=== PATIENT | female | born 1955 | race Caucasian/White ===

== ENCOUNTER → 2020-09-18 | Outpatient (CLI) | payer MEDICARE ==
--- NOTE | 2020-09-18 16:00 | BD ---
EXAMINATION TYPE: Axial Bone Density DATE OF EXAM: 09/18/2020 COMPARISON: NONE CLINICAL HISTORY: Disorder of bone. Postmenopausal female. Height: 62.5 IN Weight: 189 LBS FRAX RISK QUESTIONS: History of Fracture in Adulthood: YES RT HIP/FEMUR AGE 62 Current Tobacco Use: YES RISK FACTORS HISTORY OF: Hip Fracture (Right): AGE 62 Surgery to Spine/Hip(right): SPINE SURGERY AGE 54; RT HIP SURGERY AGE 62 Active: YES Postmenopausal woman: AGE 60 MEDICATIONS: Additional Medications: CALCIUM, VIT D, FIBROMYALGIA MEDS, RESTLESS LEG SYNDROME MEDS, PEPCID, KEPRA, ELIQUIS, EXAM MEASUREMENTS: Bone mineral densitometry was performed using the UserTesting System. L-SPINE SURGERY Bone mineral density about the L hip (g/cm2): 0.732 T Score values are as follows: -----L Neck: -2.2 -----L Total: -2.0 Bone mineral density BASELINE Bone mineral density about the L Wrist (g/cm2): 0.378 T Score values are as follows: -----Dist. R+U: -3.9 -----Prox. R+U: -3.1 -----Radius total: -4.9 Bone mineral density BASELINE IMPRESSION: Osteoporosis (T Score less than -2.5). There is increased fracture risk and therapy is usually indicated based on age. Re-Screen 1-2 years. NOTE: T-SCORE=SD OF THE YOUNG ADULT MEAN.
--- NOTE | 2020-10-02 10:17 | MM ---
Reason for exam: screening (asymptomatic). Last mammogram was performed 1 year and 6 months ago. History: Patient is postmenopausal. Benign excisional biopsy of the left breast. Physical Findings: A clinical breast exam by your physician is recommended on an annual basis and results should be correlated with mammographic findings. MG Screening Mammo w CAD Bilateral CC, MLO, and XCCL view(s) were taken. Prior study comparison: April 02, 2019, mammogram, performed at [facility]. There are scattered fibroglandular densities. Stable benign calcifications. There is no discrete abnormality. No significant changes when compared with prior studies. ASSESSMENT: Benign, BI-RAD 2 RECOMMENDATION: Routine screening mammogram of both breasts in 1 year.
== END | disposition home or self-care (01) ==
LOC: RADMAMWWP 14:40
PROVIDERS: ATTEND Family Medicine
DX: Z12.31 Encounter for screening mammogram for malignant neoplasm of breast (principal); M81.0 Age-related osteoporosis without current pathological fracture
CPT/HCPCS: 77067; 77080

== ENCOUNTER → 2021-11-07 | Outpatient (CLI) | payer MEDICARE ==
--- NOTE | 2021-11-07 16:05 | MR ---
EXAMINATION TYPE: MR brain wo/w con DATE OF EXAM: 11/07/2021 COMPARISON: NONE HISTORY: 66-year-old female G43.009, Brain aneurysm, migraine TECHNIQUE: Multiplanar, multisequence images of the brain and brainstem were acquired before and aft er administration of 10 mL IV Gadavist. Diffusion weighted imaging is performed. FINDINGS: No evidence for acute infarction, hemorrhage, mass, mass effect, midline shift, herniation, effacemen t of basal cisterns, or extra-axial fluid collection. The ventricles and sulci are age-appropriate. Incidental hypoplastic A1 segment right anterior cerebral artery. There is also a dominant left verte bral artery. Somewhat diminutive caliber to the basilar artery. Correlate for any chronic symptoms of vertebrobasilar insufficiency. There appears to be persistent origin right posterior cerebral artery. Otherwise, major intracranial flow voids are intact. T2/FLAIR weighted sequences show mild to moderate scattered subcortical and deep white matter foci of bright signal change in both cerebral hemispheres, numbering approximately 20-25 on the right and 10 on the left. Midline structures demonstrates a partially up the sella but otherwise normal morphology. The cranio cervical junction is normal. Post contrast images demonstrate no evidence of pathologic enhancement. Dural venous sinuses are pat ent. The visualized sinuses are clear and the globes are intact. There is fluid throughout the bilateral m astoid air cells. IMPRESSION: 1. [id number] scattered burden of T2 bright white matter change, right greater than left. This could reflect chronic small vessel ischemic disease or areas of ischemic demyelination related to chr onic migraines. 2. No acute intracranial abnormality seen. No enhancing lesions. 3. Anatomic variation with a dominant left vertebral artery. Also, persistent origin right post erior cerebral artery. Somewhat small caliber to the basilar artery. 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 4. Prominent fluid within the bilateral mastoid air cells. Correlate for any mastoid pain to exclude mastoiditis. 5. Consider MR angiography [place] of [place] to better exclude intracranial aneurysm.
== END | disposition home or self-care (01) ==
LOC: RADMRIMAIN 10:58
PROVIDERS: ATTEND Family Medicine
DX: G43.909 Migraine, unspecified, not intractable, without status migrainosus (principal)
CPT/HCPCS: 70553; A9585

== ENCOUNTER → 2021-11-20 | Outpatient (CLI) | payer MEDICARE ==
--- NOTE | 2021-11-22 09:50 | MM ---
Reason for exam: screening (asymptomatic). Last mammogram was performed 1 year and 2 months ago. History: Patient is postmenopausal. Benign excisional biopsy of the left breast. Physical Findings: A clinical breast exam by your physician is recommended on an annual basis and results should be correlated with mammographic findings. MG Screening Mammo w CAD Bilateral CC and MLO view(s) were taken. Prior study comparison: September 18, 2020, bilateral MG screening mammo w CAD. April 02, 2019, mammogram, performed at [facility]. There are scattered fibroglandular densities. No significant changes when compared with prior studies. ASSESSMENT: Negative, BI-RAD 1 RECOMMENDATION: Routine screening mammogram of both breasts in 1 year.
== END | disposition home or self-care (01) ==
LOC: RADMAMWWP 13:06
PROVIDERS: ATTEND Family Medicine
DX: Z12.31 Encounter for screening mammogram for malignant neoplasm of breast (principal); Z78.0 Asymptomatic menopausal state
CPT/HCPCS: 77067

== ENCOUNTER → 2022-01-02 | Outpatient (CLI) | payer MEDICARE ==
--- NOTE | 2022-01-02 16:28 | MR ---
EXAMINATION TYPE: MR angio head wo con DATE OF EXAM: 01/02/2022 COMPARISON: MRI brain November 07, 2021 HISTORY: Headaches, brain aneurysm. TECHNIQUE: Time of flight images focusing on the [place] of [place] were performed without contrast.. 2-D and 3-D postprocessing imaging is performed. FINDINGS: Left vertebral artery is redemonstrated dominant filling the basilar artery. Right vertebra l artery is occluded or hypoplastic. There is hypoplastic right P1 segment with filling of the right P2 segment due to patent posterior right communicating artery. There is patent but small caliber left posterior communicating artery. Somewhat small caliber basilar artery redemonstrated. No significant focal stenosis or aneurysm. Anterior circulation shows small caliber right A1 segment with larger caliber right A2 segment due to patent anterior communicating artery. There is no significant focal stenosis or aneurysm in the ante rior circulation. IMPRESSION: Normal variant at level of k[place] of Yen. No aneurysm is identified.
== END | disposition home or self-care (01) ==
LOC: RADMRIMAIN 15:38
PROVIDERS: ATTEND Family Medicine
DX: R51.9 Headache, unspecified (principal)
CPT/HCPCS: 70544

== ENCOUNTER 2022-11-15 07:44 | Day surgery (SDC) | payer MEDICARE ==
[2022-11-15] MEDS ORDERED: diazePAM 5 MG TAB PO PRN (08:41)
[2022-11-15 09:11] VITALS: PULSE 74; RESP 16; TEMP 97.6
[2022-11-15 09:59] VITALS: BP 94/63
== END 2022-11-15 09:45 | disposition home or self-care (01) ==
LOC: RADPROMAIN 07:44
PROVIDERS: ATTEND Orthopaedic Surgery
DX: M54.10 Radiculopathy, site unspecified (principal); M43.26 Fusion of spine, lumbar region

== ENCOUNTER → 2022-11-21 | Outpatient (CLI) | payer MEDICARE ==
--- NOTE | 2022-11-22 11:14 | MM ---
Reason for Exam: Screening (asymptomatic). Last screening mammogram was performed 12 month(s) ago. Patient History: Menarche at age 15. First Full-Term at age 20. Postmenopausal. Benign Excisional Biopsy on the left side. Risk Values: Samanta 5 year model risk: 1.4%. NCI Lifetime model risk: 5.4%. Prior Study Comparison: 04/02/2019 Screening Mammogram, [facility]. 09/18/2020 Bilateral Screening Mammogram, [facility]. 11/20/2021 Bilateral Screening Mammogram, [facility]. Tissue Density: There are scattered fibroglandular densities. Findings: Analyzed By CAD. Pattern appears symmetrical and stable. Benign calcifications within the left breast. No significant interval changes are evident. No suspicious groups of microcalcifications, spiculated or lobular masses, architectural distortion or other secondary signs of malignancy are mammographically apparent. Overall Assessment: Benign, BI-RAD 2 Management: Screening Mammogram of both breasts in 1 year. A negative mammogram report should not preclude additional follow up of suspicious palpable abnormalities. Patient should continue monthly self breast exam. A clinical breast exam by your physician is recommended on an annual basis and results should be correlated with mammographic findings. Electronically signed and approved by: Casa Chapman D.O. Radiologis
== END | disposition home or self-care (01) ==
LOC: RADMAMWWP 13:19
PROVIDERS: ATTEND Family Medicine
DX: Z12.31 Encounter for screening mammogram for malignant neoplasm of breast (principal); Z78.0 Asymptomatic menopausal state; Z98.890 Other specified postprocedural states
CPT/HCPCS: 77067

== ENCOUNTER → 2022-11-26 | Outpatient (CLI) | payer MEDICARE ==
[2022-11-26 18:41] LABS: HCT 42.8 % (37.2-46.3); HGB 13.8 g/dL (12.0-15.0); MCH 32.5 pg (27.0-32.0); MCHC 32.2 g/dL (32.0-37.0); MCV 100.9 fL (80.0-97.0); NRBC Per 100 WBC 0 /100 WBCS (0.0-0.0); Platelet Count 153 X 10*3/uL (140-440); RBC 4.24 X 10*6/uL (4.10-5.20); RDW 13.1 % (11.5-14.5)
[2022-11-26 19:17] LABS: Albumin 4.5 g/dL (3.8-4.9); Albumin/Globulin Ratio 1.88 (1.60-3.17); Anion Gap 9.1 mmol/L (10.00-18.00); BUN/Creat Ratio 15.73 Ratio (12.00-20.00); Blood Urea Nitrogen 17.3 mg/dL (9.0-27.0); Calcium 9.9 mg/dL (8.7-10.3); Carbon Dioxide 26.9 mmol/L (20.0-27.5); Globulin 2.4 g/dL (1.6-3.3); Non-African American GFR(CKD) 52.6 (60.0-200.0); Potassium 4.9 mmol/L (3.5-5.5); Total Bilirubin 0.4 mg/dL (0.30-1.20); Total Protein 6.9 g/dL (6.2-8.2)
== END | disposition home or self-care (01) ==
LOC: LABWHC1 11:00
PROVIDERS: ATTEND Physician Assistant
DX: I95.9 Hypotension, unspecified (principal); E16.2 Hypoglycemia, unspecified; R00.1 Bradycardia, unspecified; Z86.711 Personal history of pulmonary embolism
CPT/HCPCS: 36415; 80053; 83036; 85027; 85379

== ENCOUNTER 2022-12-03 13:43 | Emergency (ER) | payer MEDICARE ==
[2022-12-03 14:20] LABS: Basophils # (A) 0.1 k/uL (0-0.2); Basophils % (A) 2 %; Eosinophils # (A) 0.3 k/uL (0-0.7); Eosinophils % (A) 4 %; HCT 42.4 % (34.0-46.0); Lymphocytes # (A) 1.6 k/uL (1.0-4.8); Lymphocytes % (A) 27 %; MCH 31.8 pg (25.0-35.0); MCHC 33.1 g/dL (31.0-37.0); MCV 95.9 fL (80.0-100.0); Mean Platelet Volume 9.9; Monocytes # (A) 0.3 k/uL (0-1.0); Monocytes % (A) 4 %; Neutrophils # (A) 3.5 k/uL (1.3-7.7); Neutrophils % (A) 61 %; Platelet Count 164 k/uL (150-450); RBC 4.41 m/uL (3.80-5.40); RDW 12.5 % (11.5-15.5); WBC 5.8 k/uL (3.8-10.6)
[2022-12-03 14:29] LABS: Partial Thromboplastin Time 25.8 sec (22.0-30.0); Prothrombin Time 10.5 sec (9.0-12.0)
[2022-12-03 14:58] LABS: Albumin 4.4 g/dL (3.5-5.0); Calcium 9.2 mg/dL (8.4-10.2); Total Bilirubin 0.4 mg/dL (0.2-1.3); Total Protein 7.5 g/dL (6.3-8.2)
[2022-12-03] MEDS ORDERED: KETOROLAC 15 MG/ML 1 ML VIAL IM STA (15:44)
[2022-12-03 15:53] VITALS: BP 113/70; PULSE 62; RESP 17; TEMP 98
--- NOTE | 2022-12-03 16:02 | ED ---
General Adult HPI - General Chief complaint: Chest Pain Stated complaint: chest pain, SOB Time Seen by Provider: 12/03/22 15:12 Source: patient Mode of arrival: ambulatory - History of Present Illness Initial comments: this is a 67-year-old female with a past medical history including low blood pressure and previous pulmonary emboli on Eliquis presented to the emergency department for left-sided chest pain. The patient stated this chest pain has been present over the last 4 days and has been consistent. The patient stated that she has pinpoint tenderness on the left anterior chest wall just lateral to the sternum. The patient denied any nausea, vomiting or diaphoresis with this pain. The patient stated this pain is different from any pain that she's had before. The patient did state that motion and movement makes her pain worse and resting comfortably improves it. The patient denied any other acute pain or complaints at this time and denied any trauma to the chest. - Related Data Home Medications Medication Instructions Recorded Confirmed Apixaban [Eliquis] 5 mg PO BID 10/28/22 11/15/22 Atorvastatin [Lipitor] 10 mg PO DAILY 10/28/22 11/15/22 Ergocalciferol [Vitamin D2 (1250 1 cap PO WEEKLY 10/28/22 11/15/22 Mcg = 28020 Iu)] Famotidine 40 mg PO DAILY 10/28/22 11/15/22 Pregabalin [Lyrica] 150 mg PO BID 10/28/22 11/15/22 Topiramate [Topiramate ER] 50 mg PO HS 10/28/22 11/15/22 levETIRAcetam [Keppra] 500 mg PO Q12HR 10/28/22 11/15/22 rOPINIRole HCL [Requip] 1 mg PO HS 10/28/22 11/15/22 HYDROcodone/APAP 7.5-325MG [Bellamy 1 tab PO Q4H PRN 11/15/22 11/15/22 7.5-325] Allergies Allergy/AdvReac Type Severity Reaction Status Date / Time acetaminophen [From Vicodin] Allergy Nausea & Verified 12/03/22 13:51 Vomiting & Diarrhea adhesive tape Allergy Rash/Hives Verified 12/03/22 13:51 amitriptyline Allergy Itching Verified 12/03/22 13:51 diclofenac [From Voltaren] Allergy Rash/Hives Verified 12/03/22 13:51 gabapentin [From Neurontin] Allergy Itching Verified 12/03/22 13:51 hydrocodone [From Vicodin] Allergy Nausea & Verified 12/03/22 13:51 Vomiting & Diarrhea latex Allergy Rash/Hives Verified 12/03/22 13:51 Penicillins Allergy Rash/Hives Verified 12/03/22 13:51 Review of Systems ROS Statement: Those systems with pertinent positive or pertinent negative responses have been documented in the HPI. ROS Other: All systems not noted in ROS Statement are negative. Past Medical History Past Medical History: Fibromyalgia, Hyperlipidemia, Pulmonary Embolus (PE), Seizure Disorder Additional Past Medical History / Comment(s): possible mini seizures so now on keppra, brain aneurysm but not large enough for surgery History of Any Multi-Drug Resistant Organisms: None Reported Past Surgical History: Joint Replacement, Orthopedic Surgery, Tonsillectomy Additional Past Surgical History / Comment(s): bilateral knee replacement, back surgery with cage placement, right wrist surgery, right hip and leg surgery with steel [place] placed, carpal tunnel release bilaterally Past Anesthesia/Blood Transfusion Reactions: No Reported Reaction Past Psychological History: Anxiety, Depression Smoking Status: Current every day smoker Past Alcohol Use History: None Reported Past Drug Use History: None Reported - Past Family History Mother Family Medical History: Coronary Artery Disease (CAD), Diabetes Mellitus General Exam Limitations: no limitations General appearance: alert, in no apparent distress Head exam: Present: atraumatic, normocephalic, normal inspection Eye exam: Present: normal appearance, PERRL Pupils: Present: normal accommodation ENT exam: Present: normal exam, normal oropharynx, mucous membranes moist Neck exam: Present: normal inspection, full ROM Respiratory exam: Present: normal lung sounds bilaterally, chest wall tenderness (tenderness noted to the left anterior chest wall just lateral to the sternum with reproducibility of pain.) Cardiovascular Exam: Present: regular rate, normal rhythm, normal heart sounds GI/Abdominal exam: Present: soft, normal bowel sounds Extremities exam: Present: normal inspection, full ROM Back exam: Present: normal inspection, full ROM Neurological exam: Present: alert, oriented X3, CN II-XII intact Psychiatric exam: Present: normal affect, normal mood Skin exam: Present: warm, dry Course Vital Signs 12/03/22 12/03/22 12/03/22 13:47 15:50 15:53 Temperature 98.5 F 98.0 F Pulse Rate 78 62 Pulse Rate [ 67 Pulse Oximetery ] Respiratory 16 17 Rate Blood Pressure 127/81 113/70 O2 Sat by Pulse 97 96 Oximetry EKG Findings - EKG Comments: EKG Findings:: an EKG was obtained and was interpreted by myself showing a rate of 78, NM interval 137, QRS 82 and QTC of 396. This EKG showed a normal sinus rhythm with no ST segment elevation or depression noted. Medical Decision Making - Medical Decision Making Was pt. sent in by a medical professional or institution (, [facility], MANAGER WEALTH MANAGEMENT, urgent care, hospital, or care home...) When possible be specific @ -No Did you speak to anyone other than the patient for history (EMS, parent, family, police, friend...)? What history was obtained from this source @ -Yes, patient's Did you review nursing and triage notes (agree or disagree)? Why? @ -I reviewed and agree with nursing and triage notes Were old charts reviewed (outside hosp., previous admission, EMS record, old EKG, old radiological studies, urgent care reports/EKG's, care home records)? Report findings @ -No old charts were reviewed Differential Diagnosis (chest pain, altered mental status, abdominal pain women, abdominal pain men, vaginal bleeding, weakness, fever, dyspnea, syncope, headache, dizziness, GI bleed, back pain, seizure, CVA, palpatations, mental health)? @ -Acute coronary syndrome, pneumonia, chest wall muscle strain EKG interpreted by me (3pts min.). @ -As above X-rays interpreted by me (1pt min.). @ -Chest x-ray was obtained and was interpreted by myself showing no acute process. CT interpreted by me (1pt min.). @ -None done U/S interpreted by me (1pt. min.). @ -None done What testing was considered but not performed or refused? (CT, X-rays, U/S, labs)? Why? @ -None What meds were considered but not given or refused? Why? @ -None Did you discuss the management of the patient with other professionals (allie dawson i.e. , [facility], MANAGER WEALTH MANAGEMENT, lab, RT, psych nurse, social services manager, band cutter, teacher, commercial loan collection officer, case advocate)? Give summary @ -No Was smoking cessation discussed for >3mins.? @ -Yes Was critical care preformed (if so, how long)? @ -No Were there social determinants of health that impacted care today? How? (Homelessness, low income, unemployed, alcoholism, drug addiction, transportati on, low edu. Level, literacy, decrease access to med. care, penitentiary, rehab)? @ -No Was there de-escalation of care discussed even if they declined (Discuss DNR or withdrawal of care, Hospice)? DNR status @ -No What co-morbidities impacted this encounter? (DM, HTN, Smoking, COPD, CAD, Cancer, CVA, ARF, Chemo, Hep., AIDS, mental health diagnosis, sleep apnea, morbid obesity)? @ -Previous pulmonary emboli Was patient admitted / discharged? Hospital course, mention meds given and route, prescriptions, significant lab abnormalities, going to OR and other pertinent info. @ -The patient was seen and evaluated in the emergency department. Physical exam, the patient was resting in bed without any acute distress. Vital signs were stable. All laboratory workup and imaging was negative. The patient had reproducibility of pain on physical exam of the chest wall likely had costochondritis. The patient was given Toradol and reevaluation had improvement of her pain. The patient was stable for discharge and was told to report back to the emergency department if she any worsening chest pain or difficulty with breathing. The patient understood these instructions and all her questions were answered. The patient was discharged home in stable condition with her . Undiagnosed new problem with uncertain prognosis? @ -No Drug Therapy requiring intensive monitoring for toxicity (Heparin, Nitro, Insuli n, Cardizem)? @ -No Were any procedures done? @ -No Diagnosis/symptom? @ -Chest wall muscle strain, likely constipated redness Acute, or Chronic, or Acute on Chronic? @ -Acute Uncomplicated (without systemic symptoms) or Complicated (systemic symptoms)? @ -Uncomplicated Side effects of treatment? @ -No Exacerbation, Progression, or Severe Exacerbation? @ -No Poses a threat to life or bodily function? How? (Chest pain, [place], [place], pneumonia, PE, COPD, DKA, ARF, appy, cholecystitis, CVA, Diverticulitis, Homicidal, Suicidal, threat to staff... and all critical care pts) @ -No - Lab Data Result diagrams: 12/03/22 13:46 12/03/22 13:46 Lab Results 12/03/22 12/03/22 12/03/22 Range/Units 13:46 13:46 13:46 WBC 5.8 (3.8-10.6) k/uL RBC 4.41 (3.80-5.40) m/uL Hgb 14.0 (11.4-16.0) gm/dL Hct 42.4 (34.0-46.0) % MCV 95.9 (80.0-100.0) fL MCH 31.8 (25.0-35.0) pg MCHC 33.1 (31.0-37.0) g/dL RDW 12.5 (11.5-15.5) % Plt Count 164 (150-450) k/uL MPV 9.9 Neutrophils % 61 % Lymphocytes % 27 % Monocytes % 4 % Eosinophils % 4 % Basophils % 2 % Neutrophils # 3.5 (1.3-7.7) k/uL Lymphocytes # 1.6 (1.0-4.8) k/uL Monocytes # 0.3 (0-1.0) k/uL Eosinophils # 0.3 (0-0.7) k/uL Basophils # 0.1 (0-0.2) k/uL PT 10.5 (9.0-12.0) sec INR 1.0 (<1.2) APTT 25.8 (22.0-30.0) sec Sodium 142 (137-145) mmol/L Potassium 4.0 (3.5-5.1) mmol/L Chloride 108 H (98-107) mmol/L Carbon Dioxide 29 (22-30) mmol/L Anion Gap 5 mmol/L BUN 13 (7-17) mg/dL Creatinine 0.96 (0.52-1.04) mg/dL Est GFR (CKD-EPI)AfAm 72 (>60 ml/min/1.73 sqM) Est GFR (CKD-EPI)NonAf 62 (>60 ml/min/1.73 sqM) Glucose 110 H (74-99) mg/dL Calcium 9.2 (8.4-10.2) mg/dL Magnesium 2.0 (1.6-2.3) mg/dL Total Bilirubin 0.4 (0.2-1.3) mg/dL AST 26 (14-36) U/L ALT 20 (4-34) U/L Alkaline Phosphatase 111 (38-126) U/L Troponin I (0.000-0.034) ng/mL Total Protein 7.5 (6.3-8.2) g/dL Albumin 4.4 (3.5-5.0) g/dL 12/03/22 Range/Units 13:46 WBC (3.8-10.6) k/uL RBC (3.80-5.40) m/uL Hgb (11.4-16.0) gm/dL Hct (34.0-46.0) % MCV (80.0-100.0) fL MCH (25.0-35.0) pg MCHC (31.0-37.0) g/dL RDW (11.5-15.5) % Plt Count (150-450) k/uL MPV Neutrophils % % Lymphocytes % % Monocytes % % Eosinophils % % Basophils % % Neutrophils # (1.3-7.7) k/uL Lymphocytes # (1.0-4.8) k/uL Monocytes # (0-1.0) k/uL Eosinophils # (0-0.7) k/uL Basophils # (0-0.2) k/uL PT (9.0-12.0) sec INR (<1.2) APTT (22.0-30.0) sec Sodium (137-145) mmol/L Potassium (3.5-5.1) mmol/L Chloride (98-107) mmol/L Carbon Dioxide (22-30) mmol/L Anion Gap mmol/L BUN (7-17) mg/dL Creatinine (0.52-1.04) mg/dL Est GFR (CKD-EPI)AfAm (>60 ml/min/1.73 sqM) Est GFR (CKD-EPI)NonAf (>60 ml/min/1.73 sqM) Glucose (74-99) mg/dL Calcium (8.4-10.2) mg/dL Magnesium (1.6-2.3) mg/dL Total Bilirubin (0.2-1.3) mg/dL AST (14-36) U/L ALT (4-34) U/L Alkaline Phosphatase (38-126) U/L Troponin I <0.012 (0.000-0.034) ng/mL Total Protein (6.3-8.2) g/dL Albumin (3.5-5.0) g/dL Disposition Clinical Impression: Chest wall muscle strain Disposition: HOME SELF-CARE Condition: Stable Instructions (If sedation given, give patient instructions): Costochondritis (ED) Is patient prescribed a controlled substance at d/c from ED?: No Referrals: Eladio Gardner MD [Primary Care Provider] - 1-2 days Time of Disposition: 16:15
--- NOTE | 2022-12-03 16:20 | XR ---
EXAMINATION TYPE: XR chest 2V DATE OF EXAM: 12/03/2022 4:12 PM COMPARISON: None TECHNIQUE: XR chest 2V Frontal and lateral views of the chest. CLINICAL INDICATION:Female, 67 years old with history of CP; FINDINGS: Lungs/Pleura: There is no evidence of pleural effusion, focal consolidation, or pneumothorax. Chroni c senescent parenchymal changes. Pulmonary vascularity: Unremarkable. Heart/mediastinum: Cardiomediastinal silhouette is unremarkable. Musculoskeletal: No acute osseous pathology. Partial visualization of lumbar fusion hardware. IMPRESSION: No acute cardiopulmonary disease/process.
== END 2022-12-03 16:57 | disposition home or self-care (01) ==
LOC: EC 13:43
DX: S29.011A Strain of muscle and tendon of front wall of thorax, initial encounter (principal); E78.5 Hyperlipidemia, unspecified; F41.9 Anxiety disorder, unspecified; F32.A Depression, unspecified; F17.200 Nicotine dependence, unspecified, uncomplicated; Z79.01 Long term (current) use of anticoagulants; Z88.0 Allergy status to penicillin; Z88.5 Allergy status to narcotic agent; Z88.8 Allergy status to other drugs, medicaments and biological substances; Z91.040 Latex allergy status; X58.XXXA Exposure to other specified factors, initial encounter
CPT/HCPCS: 36415; 93005; 80053; 83735; 84484; 85025; 85610; 85730; 71046; 99285; 96372; J1885

== ENCOUNTER 2023-01-31 07:57 | Day surgery (SDC) | payer MEDICARE ==
[2023-01-31 08:27] VITALS: TEMP 97.9
[2023-01-31] MEDS ORDERED: diazePAM 5 MG TAB PO STA (08:30)
[2023-01-31] MEDS ORDERED: HYDROcodone/APAP 5-325MG 1 EACH TAB PO PRN (09:46)
[2023-01-31 10:31] VITALS: RESP 16
--- NOTE | 2023-01-31 11:07 | FL ---
PROCEDURE: FL myelogram lumbosacral DATE: 01/31/2023 CLINICAL HISTORY: 67-year-old female M5 4.10, M43.26 COMPLICATIONS: None SEDATION: Managed by radiology nursing. The patient and the patient's vital signs were monitored by qualified independent radiology personnel. TECHNIQUE: The procedure and potential risks were explained to patient and an informed consent was obtained with teach back. Site and side was verified. A time out was performed. Initial fluoroscopy revealed L2-L5 posterior and interbody fusion changes. Laminectomies L3 and L4 le vels. The patient was placed prone on the fluoroscopy table and the L3-L4 level was localized and the skin was marked and was prepped and draped in the usual sterile fashion. Lidocaine was used for local anesthesia. Utilizing fluoroscopic guidance a 22-gauge 5 inch spinal nee dle was placed through the skin and into the subarachnoid space. CSF was visualized at the needle hub. Subsequently, a total of 12 mL Isovue-M 200 was administered in to the intrathecal space. The patient tolerated the procedure well and was sent to CT in satisfactory condition. The estimated blood loss was minimal. The patient's condition was unchanged following the procedure. Fluoroscopy time: 1 minute 21 seconds Total images: 14. Total DAP: 5.0. There appears to be an initial block to the flow of CSF just above the fusion at the L1-L2 level. Thi s will be further evaluated on the patient's CT to follow. IMPRESSION: Successful lumbar myelogram injection for CT. Possible partial myelographic block above the patient's fusion at L1-L2.
--- NOTE | 2023-01-31 11:37 | CT ---
EXAMINATION TYPE: CT lumbar spine w con DATE OF EXAM: 01/31/2023 COMPARISON: None HISTORY: 67-year-old female M54.10, M43.26 , pain TECHNIQUE: CT of the lumbar spine after intrathecal injection of a total of 12 mL Isovue M200. Please refer to myelogram injection report of the same day for further details. Coronal/sagittal reconstruc tions performed. CT DLP: 922 mGycm Automated exposure control for dose reduction was used. FINDINGS: Patient is status post L2-L5 posterior and interbody fusion. Levels of mature interbody ankylosis are present. Fixed grade 1 retrolisthesis at the fused L2-L3 level. Partial laminectomy change L3 and L4 levels. Satisfactory opacification of the thecal sac after mild mammogram injection. Above the fusion at L1-L2, there is moderate to advanced degenerative disc disease and facet arthropa thy with trace grade 1 retrolisthesis. Mild to moderate degenerative disc disease above it T12-L1. Conus medullaris is normal. Facet arthropathy below the fusion at L5-S1. There is indentation onto the ventral thecal sac at both T12-L1 and L1-L2 secondary to minimal control clerk ior disc bulging and disc osteophyte complex, respectively. No focal disc herniation or significant s nicole canal stenosis is seen. On the left, changes result in mild to moderate neuroforaminal narrowing at T12-L1 and L1-L2. Moderat e at L4-L5. Mild at L5-S1. On the right, changes result in [id number] neural foraminal stenosis at T12-L1. More moderate a t L4-L5. Prominent distention of the urinary bladder. Uterus partially visualized. Surgical material at the ce cum suggest prior appendectomy. IMPRESSION: 1. STATUS POST L2-L5 POSTERIOR AND INTERBODY FUSION WITH SATISFACTORY INTERBODY ANKYLOSIS. ORTHOPEDIC HARDWARE APPEARS SATISFACTORY. 2. MODERATE TO ADVANCED DEGENERATIVE DISC DISEASE ABOVE THE FUSION AT L1-L2 WITH A TRACE GRADE 1 RETR OLISTHESIS. WHILE THERE IS DISC OSTEOPHYTE COMPLEX HERE THAT IMPRESSES ON THE VENTRAL THECAL SAC, THE RE IS NO SIGNIFICANT SPINAL CANAL STENOSIS. 3. FACET ARTHROPATHY BELOW THE FUSION AT L5-S1. 4. 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 ADDITIONAL VARIABLE MILD TO MODERATE NEUROF ORAMINAL NARROWING OUTLINED ABOVE.
[2023-01-31 14:13] VITALS: BP 101/54; PULSE 60
== END 2023-01-31 13:46 | disposition home or self-care (01) ==
LOC: RADPROMAIN 07:57
PROVIDERS: ATTEND Orthopaedic Surgery
DX: M43.16 Spondylolisthesis, lumbar region (principal); M51.16 Intervertebral disc disorders with radiculopathy, lumbar region; M43.26 Fusion of spine, lumbar region; Z98.1 Arthrodesis status; M47.26 Other spondylosis with radiculopathy, lumbar region; M99.72 Connective tissue and disc stenosis of intervertebral foramina of thoracic region; M99.73 Connective tissue and disc stenosis of intervertebral foramina of lumbar region
CPT/HCPCS: 62304; 72132; J2001; Q9966

== ENCOUNTER → 2023-03-03 | Outpatient (CLI) | payer MEDICARE ==
[2023-03-03 14:33] VITALS: BP 106/69; PULSE 64; RESP 18; TEMP 98.7
--- NOTE | 2023-03-03 14:37 | P.PAINPG ---
PQRS Measure Charge Sheet Comment: HISTORY OF PRESENT ILLNESS: 67 yr old female as a referral from [facility] presents today w severe and chronic R LBP secondary to Sacroiliitis for evaluation. Pt states pain level is provoked at 6/10 in intensity, constant, localized in the R lower lumbar spine, stabbing in character w shooting pain towards the R hip. Pain is provoked by walking/ sitting for periods of 20 min or more. Pain is alleviated by heat, meds ([place]), topical hemp, use of a cane for ambulatory assistance, reclining and rest. PMH: Fibromyalgia, Hyperlipidemia, PE, Seizure Disorder, MDD/ Anxiety PSH: BL Knee Replacement, Lumbar Surgery w CAGE, R Wrist Surgery, R Hip Surgery, RLE Hardware, CTR, Tonsillectomy SH: Daily tobacco use, No ETOH abuse, No illicit drug use FH: Mo- CAD, DM All: See list Meds: See list REVIEW OF ORGAN SYSTEMS: CONSTITUTIONAL: No fevers or chills. No recent weight loss. NEUROLOGICAL: + numbness and tingling along the distal extremities. No seizure disorders or headaches. MUSCULOSKELETAL: + pain PSYCHIATRIC: Denies current depression or suicidal thoughts. Physical Examinations : Constitutional : Cooperative , not in acute distress . Neurologic : Cranial nerve II to XII intact. No focal neurological deficits. Psychiatric : alert & oriented x 3. Matching mood & appropriate affect. Judgment & insight intact. Musculoskeletal : Cervical Spine Motor strength in the deltoid and biceps: Normal right side. Normal Left side Motor strength biceps and the wrist extensors: Normal right side . Normal left side Motor strength in the triceps muscle: Normal right side. Normal left side Deep tendon reflexes: Normal at the biceps. Normal at Brachioradialis. Normal at triceps Vertebral body tenderness to deep palpation over Cervical facet loading test: positive bilaterally Spurling test: positive bilaterally Neck distraction test: positive bilaterally Naomi sign: positive bilaterally Lumbar spine Motor strength lower extremities ,thigh and legs 5/5 Right side , 5/5 Left side Deep tendon reflexes : Normal Knee Jerk. Normal Ankle Jerk Vertebral body tenderness over Lumbar facet Loading Test: positive Right / positive Left Range of motion of the lumbar spine Flexion 30 degrees, extension 10 degrees Straight Leg Raise test: Left/ Right positive at degree Fauzia test: positive right / positive left. Severe tenderness over the Sacroiliac joint on the Right / Left sides Gaenslen test: positive bilaterally Seated flexion test: positive bilaterally. Sacral spine : Severe tenderness over the Sacroiliac joint: right side / left side Range of motion: Flexion of the lumbar spine <60 degrees Range of motion: Extension of the lumbar spine <20 degrees Gaenslen's Test positive R Fauzia test: positive right side / left side R positive Thigh Thrust Test Sacral Thrust Test R positive Imaging: Computed tomography scan without contrast of the lumbar spine from 01/31/23 reviewed Assessment/ Plan : R Sacroiliitis Recommendation of R SI injection. May need a series for optimal pain relief. Risks, benefits of procedure discussed and patient verbalized understanding. A dmits to aspirin or anti- coagulant use or medical history of diabetes. Protocol for discontinuation/ continuation of medications poal procedure discussed. All questions answered. I have spent greater than 30 minutes on patient care today. Dr Hastings was available by phone for the evaluation of this patient. The time was used to review the medical records including relevant urine studies and Prescription history (MAPs), review of the available imaging, evaluation and examination of the patient, coordination of care with the medical staff and if applicable referring physicians, as well as creation of the medical record Home Medications: Ambulatory Orders Apixaban [Eliquis] 5 mg PO BID 10/28/22 Atorvastatin [Lipitor] 10 mg PO HS 10/28/22 Ergocalciferol [Vitamin D2 (1250 Mcg = 29413 Iu)] 1 cap PO WEEKLY 10/28/22 Famotidine 40 mg PO DAILY 10/28/22 Pregabalin [Lyrica] 150 mg PO TID 10/28/22 Topiramate [Topiramate ER] 50 mg PO HS 10/28/22 levETIRAcetam [Keppra] 500 mg PO Q12HR 10/28/22 rOPINIRole HCL [Requip] 1 mg PO HS 10/28/22 HYDROcodone/APAP 7.5-325MG [[place] 7.5-325] 1 tab PO Q4H PRN 11/15/22 Montelukast Sodium [Singulair] 10 mg PO HS 01/21/23 Oxymetazoline 0.05% Nasl [place] [Afrin 0.05% Nasal [place]] 1 spray EA NOSTRIL HS 01/21/23 rOPINIRole HCL 0.25 mg PO DAILY PRN 01/21/23 Controlled Substance Measures - Controlled Substance Measures Is patient prescribed a controlled substance at discharge?: No
== END ==
LOC: PNWHC3 13:23
PROVIDERS: ATTEND Specialist
DX: M46.1 Sacroiliitis, not elsewhere classified (principal); M79.7 Fibromyalgia; E78.5 Hyperlipidemia, unspecified; G40.909 Epilepsy, unspecified, not intractable, without status epilepticus; F32.9 Major depressive disorder, single episode, unspecified; F41.9 Anxiety disorder, unspecified; M54.16 Radiculopathy, lumbar region; M43.16 Spondylolisthesis, lumbar region; Z91.048 Other nonmedicinal substance allergy status; Z88.5 Allergy status to narcotic agent; Z91.040 Latex allergy status; Z86.711 Personal history of pulmonary embolism; Z79.01 Long term (current) use of anticoagulants; F17.200 Nicotine dependence, unspecified, uncomplicated
CPT/HCPCS: 99211

== ENCOUNTER 2023-04-22 11:11 | Day surgery (SDC) | payer MEDICARE ==
[2023-04-21 10:37] VITALS: BMI 35.3
[2023-04-22 11:37] VITALS: TEMP 97.8
[2023-04-22] MEDS ORDERED: LACTATED RINGERS 1,000 ML IV ONE (11:41)
[2023-04-22] MEDS ORDERED: ROPIVACAINE 5 MG/ML 20 ML AMPULE ONE (12:23)
[2023-04-22] MEDS ORDERED: methylPREDNISolone ACETATE 40 MG/ML 1 ML VIAL ONE (12:23)
[2023-04-22] MEDS ORDERED: IOPAMIDOL M200 10 ML VIAL ONE (12:23)
--- NOTE | 2023-04-22 12:30 | P.PCN ---
Date of Procedure: 04/22/23 Procedure(s) Performed: Procedure= Right sacroiliac joints steroid injection under fluoroscopy guidance (fluoroscopy image stored on file in the radiology Department ) Preoperative diagnosis= 1- right sacroiliitis. Postoperative diagnosis=Same as preop Diagnosis . Complication = none Condition= stable Anesthesia= ropivacaine 0.5% 2 mL for skin and subcu infiltration Indication for the procedure= patient complaining of low back pain , examination was positive for severe tenderness over the right sacroiliac joints , and patient diagnosed with right sacroiliitis, for this reason she was good candidate for sacroiliac joint steroid injection. Description of the procedure= procedure risk and benefits discussed with the patient, including but not limited, risk of infection and bleeding, and ALLERGIC reaction to the medication and not complete pain relief and patient agreed with the preceding patient taken to the operating room, placed in prone position or standard monitors applied to the patient then after induction of anesthesia back prepped with chlorhexidine 3 times , Then under strict sterile technique, first I did the right sacroiliac joint the which was identified under fluoroscopy guidance been local infiltration of the skin and subcu interstitial with lidocaine 1% then 22-gauge Quincke Needle advanced slowly under fluoroscopy and placed in the right sacroiliac joint needle placement confirmed with AP and oblique and lateral view, then after that Isovue 200 one mL injected which confirmed the correct needle placement with the appropriate arthrogram of the sacroiliac joint, and after appropriate needle placement confirmed and after negative aspiration, or heme , then Ropivacaine 0.5% 4 mL, and 40 mg of Depo-Medrol mixed together and injected in the right sacroiliac joint after negative aspiration patient tolerated the procedure well without any complication.
[2023-04-22] MEDS ORDERED: IV FLUID CONTINUATION 1,000 ML IV ONE (12:32)
[2023-04-22 12:35] VITALS: RESP 16
[2023-04-22] MEDS ORDERED: LIDOCAINE 1% (10MG/ML) FOR IV START INTRADERMA PRN (12:36)
[2023-04-22] MEDS ORDERED: LACTATED RINGERS 1,000 ML IV SCH (12:36)
[2023-04-22 12:44] VITALS: BP 112/72; PULSE 70
--- NOTE | 2023-04-22 13:04 | FL ---
EXAMINATION TYPE: FL guided pain mgmt statistic DATE OF EXAM: 04/22/2023 HISTORY: Fluoroscopy time Total dose area product (DAP) in uGy*m?, mGy*cm? (or similar): 0.08294 IMPRESSION: 1. Fluoroscopy time.
== END 2023-04-22 12:50 ==
LOC: ORPAIN 11:11
PROVIDERS: ATTEND Specialist
DX: M46.1 Sacroiliitis, not elsewhere classified (principal); I25.10 Atherosclerotic heart disease of native coronary artery without angina pectoris; Z79.01 Long term (current) use of anticoagulants
CPT/HCPCS: J1030; Q9966; J2795; G0260; 27096

== ENCOUNTER → 2023-05-14 | Outpatient (CLI) | payer MEDICARE ==
[2023-05-14 15:16] VITALS: BP 116/78; PULSE 74; RESP 18; TEMP 97.8
--- NOTE | 2023-05-14 15:19 | P.PAINPG ---
PQRS Measure Charge Sheet Comment: A 67 yr old female with a history of severe and chronic LBP secondary to lumbar DDD and spondylosis with facet arthropathy without myelopathy presents today for evaluation s/p R SI injection. Pt states she experienced 100% pain relief x 1 day s/p procedure. Pain level is provoked at 9/10 in intensity, cons tant, localized in the lumbar spine, stabbing in character without shooting pain. Pain is provoked by sitting. Pain is alleviated with standing, PT which was years ago, medications ([place]), use of a cane for ambulatory assistance, repositioning and rest. Oswetry pain scale of 32 and pt has surgery scheduled w Dr Palacios in Jun 2023. Interventional pain procedures completed include R SI x1 Patient is currently on [place] Patient denies any side effects of the medication(s), denies excessive drowsiness or sleepiness, denies suicidal ideation and reports that the current pain medication is helping to control the pain and improve activities of daily living. Patient denies any motor or sensory deficits. Patient denies any fever or night sweats, denies any change in the bowel movements or urination. Physical Examination: -Constitutional: Cooperative. Not in acute distress . - Neurologic: Cranial nerve II to XII intact. No focal neurological deficits. - Psychatric: Alert & oriented x 3. Matching mood & appropriate affect. Judgment and insight intact. - Musculoskeletal: Cervical spine: Muscle bulk/ tone/ strength in the bilateral upper extremities normal Vertebral body tenderness to palpation over Spurling test positive Distraction test positive Facet loading test positive TTP Thoracic spine Muscle bulk / tone/ strength in the bilateral paraspinal muscles normal Vertebral body tender to palpation over Facet loading test positive TTP Lumbar spine: Motor bulk/ tone/ strength lower extremities , thigh and legs : 5/5 Deep tendon reflexes : Normal Knee Jerk. Normal Ankle Jerk . Vertebral body tenderness to palpation over Jackson Test positive Lumbar Facet Loading Test positive Straight Leg Raise: positive at 30 degrees right side/ left side Gaenslen's Test positive Sacral spine : Severe tenderness over the Sacroiliac joint: right side / left side Range of motion: Flexion of the lumbar spine <60 degrees Range of motion: Extension of the lumbar spine <20 degrees Gaenslen's Test positive right side / left side Fauzia test: positive right side / left side Thigh Thrust Test positive right side / left side Sacral Thrust Test positive right side / left side Assessment and plan: Chronic LBP secondary to lumbar DDD, spondylosis with facet arthropathy without myelopathy Recommendation of R SI injection #2. May need a seires of injections, up until SI joint fixation, for optimal pain relief. Risks, benefits of procedure discussed and pt verbalized understanding. Admits to anticoagulant use or medical history of diabetes. Protocol for discontinuation/ continuation of medications opal procedure discussed. Minimal anesthesia provided, if clinically indicated, consisting of Versed and Fentanyl. All questions answered. I have spent less than 30 minutes on patient care today. Dr Hastings was available by phone for the evaluation of this patient. The time was used to review the medical records including relevant urine studies and Prescription history (MAPs), review of the available imaging, evaluation and examination of the patient, coordination of care with the medical staff and if applicable referring physicians, as well as creation of the medical record PQRS Narrative: Hx Alcohol Use (MH) No Home Medications: Ambulatory Orders Apixaban [Eliquis] 5 mg PO BID 10/28/22 Atorvastatin [Lipitor] 10 mg PO HS 10/28/22 Ergocalciferol [Vitamin D2 (1250 Mcg = 78506 Iu)] 1 cap PO WEEKLY 10/28/22 Famotidine 40 mg PO BID 10/28/22 Pregabalin [Lyrica] 150 mg PO TID 10/28/22 Topiramate [Topiramate ER] 50 mg PO HS 10/28/22 levETIRAcetam [Keppra] 500 mg PO BID 10/28/22 rOPINIRole HCL [Requip] 1 mg PO HS 10/28/22 rOPINIRole HCL 0.25 mg PO PC-LUNCH 01/21/23 HYDROcodone/APAP 10-325MG [[place] 10-325] 1 tab PO TID 04/21/23 Controlled Substance Measures - Controlled Substance Measures Is patient prescribed a controlled substance at discharge?: No
== END ==
LOC: PNWHC3 13:50
PROVIDERS: ATTEND Specialist
DX: M51.36 Other intervertebral disc degeneration, lumbar region (principal); M47.816 Spondylosis without myelopathy or radiculopathy, lumbar region; G89.29 Other chronic pain; Z91.048 Other nonmedicinal substance allergy status; Z88.5 Allergy status to narcotic agent; Z91.040 Latex allergy status; Z88.0 Allergy status to penicillin; Z88.8 Allergy status to other drugs, medicaments and biological substances
CPT/HCPCS: 99211

== ENCOUNTER 2023-05-29 12:46 | Day surgery (SDC) | payer MEDICARE ==
[2023-05-27 10:01] VITALS: BMI 35.2
[~2023-05-29 12:46] MED LIST: LACTATED RINGERS 1,000 ML IV SCH
[2023-05-29 13:25] VITALS: TEMP 97.2
[2023-05-29] MEDS ORDERED: ROPIVACAINE 5 MG/ML 20 ML AMPULE ONE (13:31)
[2023-05-29] MEDS ORDERED: IOPAMIDOL M200 10 ML VIAL ONE (13:31)
[2023-05-29] MEDS ORDERED: methylPREDNISolone ACETATE 80 MG/ML 1 ML VIAL ONE (13:31)
--- NOTE | 2023-05-29 13:38 | P.PCN ---
Date of Procedure: 05/29/23 Procedure(s) Performed: Procedure= Right sacroiliac joints steroid injection under fluoroscopy guidance (fluoroscopy image stored on file in the radiology Department ) Preoperative diagnosis= 1- right sacroiliitis. Postoperative diagnosis=Same as preop Diagnosis . Complication = none Condition= stable Anesthesia= ropivacaine 0.5% 2 mL for skin and subcu infiltration Indication for the procedure= patient complaining of low back pain , examination was positive for severe tenderness over the right sacroiliac joints , and patient diagnosed with right sacroiliitis, for this reason she was good candidate for sacroiliac joint steroid injection. Description of the procedure= procedure risk and benefits discussed with the patient, including but not limited, risk of infection and bleeding, and ALLERGIC reaction to the medication and not complete pain relief and patient agreed with the preceding patient taken to the operating room, placed in prone position or standard monitors applied to the patient then after induction of anesthesia back prepped with chlorhexidine 3 times , Then under strict sterile technique, first I did the right sacroiliac joint the which was identified under fluoroscopy guidance been local infiltration of the skin and subcu interstitial with lidocaine 1% then 22-gauge Quincke Needle advanced slowly under fluoroscopy and placed in the right sacroiliac joint needle placement confirmed with AP and oblique and lateral view, then after that Isovue 200 one mL injected which confirmed the correct needle placement with the appropriate arthrogram of the sacroiliac joint, and after appropriate needle placement confirmed and after negative aspiration, or heme , then Ropivacaine 0.5% 4 mL, and 60 mg of Depo-Medrol mixed together and injected in the right sacroiliac joint after negative aspiration patient tolerated the procedure well without any complication.
[2023-05-29 13:43] VITALS: RESP 14
[2023-05-29 13:59] VITALS: BP 95/68; PULSE 75
--- NOTE | 2023-05-29 14:37 | FL ---
EXAMINATION TYPE: FL guided pain mgmt statistic DATE OF EXAM: 05/29/2023 HISTORY: Fluoroscopy time Total dose area product (DAP) in uGy*m?, mGy*cm? (or similar): 0.80086 IMPRESSION: 1. Fluoroscopy time.
== END 2023-05-29 14:11 | disposition home or self-care (01) ==
LOC: ORPAIN 12:46
PROVIDERS: ATTEND Specialist
DX: M46.1 Sacroiliitis, not elsewhere classified (principal); Z88.8 Allergy status to other drugs, medicaments and biological substances; Z79.01 Long term (current) use of anticoagulants
CPT/HCPCS: J1040; Q9966; J2795; G0260; 27096

== ENCOUNTER → 2023-06-19 | Outpatient (CLI) | payer MEDICARE ==
[2023-06-19 14:28] VITALS: BP 103/68; PULSE 67; RESP 15; TEMP 98.2
--- NOTE | 2023-06-19 14:52 | P.PAINPG ---
PQRS Measure Charge Sheet Comment: A 67 yr old female with a history of severe and chronic LBP secondary to lumbar DDD and spondylosis with facet arthropathy without myelopathy presents today for evaluation s/p R SI injection #2. Pt states she experienced 80% pain relief x 1 day s/p procedure. Pain level is provoked at 8/10 in intensity, co nstant, localized in the lumbar spine, stabbing in character without shooting pain. Pain is provoked by sitting. Pain is alleviated with standing, PT which was years ago, medications ([place]), use of a cane for ambulatory assistance, repositioning and rest. Oswestry pain scale of 25 and pt has surgery scheduled w Dr Palacios in Jun 2023. Interventional pain procedures completed include R SI x2 Patient is currently on [place] Patient denies any side effects of the medication(s), denies excessive drowsiness or sleepiness, denies suicidal ideation and reports that the current pain medication is helping to control the pain and improve activities of daily living. Patient denies any motor or sensory deficits. Patient denies any fever or night sweats, denies any change in the bowel movements or urination. Physical Examination: -Constitutional: Cooperative. Not in acute distress . - Neurologic: Cranial nerve II to XII intact. No focal neurological deficits. - Psychatric: Alert & oriented x 3. Matching mood & appropriate affect. Judgment and insight intact. - Musculoskeletal: Cervical spine: Muscle bulk/ tone/ strength in the bilateral upper extremities normal Vertebral body tenderness to palpation over Spurling test positive Distraction test positive Facet loading test positive TTP Thoracic spine Muscle bulk / tone/ strength in the bilateral paraspinal muscles normal Vertebral body tender to palpation over Facet loading test positive TTP Lumbar spine: Motor bulk/ tone/ strength lower extremities , thigh and legs : 5/5 Deep tendon reflexes : Normal Knee Jerk. Normal Ankle Jerk . Vertebral body tenderness to palpation over Jackson Test positive Lumbar Facet Loading Test positive Straight Leg Raise: positive at 30 degrees right side/ left side Gaenslen's Test positive Sacral spine : Severe tenderness over the Sacroiliac joint: right side / left side Range of motion: Flexion of the lumbar spine <60 degrees Range of motion: Extension of the lumbar spine <20 degrees Gaenslen's Test positive right side / left side Fauzia test: positive right side / left side Thigh Thrust Test positive right side / left side Sacral Thrust Test positive right side / left side Assessment and plan: Chronic LBP secondary to lumbar DDD, spondylosis with facet arthropathy without myelopathy Recommendation of follow up w Dr Palacios for treatment options. All questions answered. I have spent less than 30 minutes on patient care today. Dr Hastings was available by phone for the evaluation of this patient. The time was used to review the medical records including relevant urine studies and Prescription history (MAPs), review of the available imaging, evaluation and examination of the patient, coordination of care with the medical staff and if applicable referring physicians, as well as creation of the medical record PQRS Narrative: Hx Alcohol Use (MH) No Home Medications: Ambulatory Orders Apixaban [Eliquis] 5 mg PO BID 10/28/22 Atorvastatin [Lipitor] 10 mg PO HS 10/28/22 Ergocalciferol [Vitamin D2 (1250 Mcg = 31670 Iu)] 1 cap PO SA 10/28/22 Famotidine 40 mg PO BID 10/28/22 Pregabalin [Lyrica] 150 mg PO TID 10/28/22 Topiramate [Topiramate ER] 50 mg PO HS 10/28/22 levETIRAcetam [Keppra] 500 mg PO BID 10/28/22 rOPINIRole HCL [Requip] 1 mg PO HS 10/28/22 rOPINIRole HCL 0.25 mg PO PC-LUNCH 01/21/23 HYDROcodone/APAP 10-325MG [[place] 10-325] 1 tab PO TID 04/21/23 Controlled Substance Measures - Controlled Substance Measures Is patient prescribed a controlled substance at discharge?: No
== END ==
LOC: PNWHC3 13:20
PROVIDERS: ATTEND Specialist
DX: M51.36 Other intervertebral disc degeneration, lumbar region (principal); M47.816 Spondylosis without myelopathy or radiculopathy, lumbar region; G89.29 Other chronic pain; Z91.048 Other nonmedicinal substance allergy status; Z88.0 Allergy status to penicillin; Z91.040 Latex allergy status; Z88.5 Allergy status to narcotic agent; Z88.8 Allergy status to other drugs, medicaments and biological substances
CPT/HCPCS: 99211

== ENCOUNTER → 2023-07-07 | Outpatient (CLI) | payer MEDICARE | END | disposition home or self-care (01) | LOC: LABPAT 13:30 | PROVIDERS: ATTEND Orthopaedic Surgery | DX: Z01.812 Encounter for preprocedural laboratory examination (principal); Z22.322 Carrier or suspected carrier of Methicillin resistant Staphylococcus aureus; M51.36 Other intervertebral disc degeneration, lumbar region; M48.061 Spinal stenosis, lumbar region without neurogenic claudication | CPT/HCPCS: 86850; 86900; 86901; 87070 ==

== ENCOUNTER 2023-07-15 05:40 | Inpatient (IN) | payer MEDICARE ==
[2023-07-10 12:22] VITALS: BMI 38.2
[~2023-07-15 05:40] MED LIST changes: +ACETAMINOPHEN TAB 500 MG TAB PO PRN; -LACTATED RINGERS 1,000 ML IV SCH; +ONDANSETRON 4 MG/2 ML VIAL IVP PRN; +TRANEXAMIC 1,000 MG/100ML-NACL 1,000 MG in SALINE 1 100ML.BAG IVPB PRN
[2023-07-15] MEDS ORDERED: DEXAMETHASONE SOD PHOSPHATE 4 MG/ML 1 ML VIAL IV ONE (05:50)
[2023-07-15] MEDS ORDERED: LIDOCAINE 1% (10MG/ML) FOR IV START INTRADERMA PRN (05:50)
[2023-07-15] MEDS ORDERED: ONDANSETRON 4 MG/2 ML VIAL IVP ONE (05:50)
[2023-07-15] MEDS ORDERED: PREGABALIN 75 MG CAP PO PRN (06:00)
--- NOTE | 2023-07-15 06:45 | P.HPOR ---
History of Present Illness H&P Date: 07/09/23 Chief Complaint: Low back pain, LE weakness, Neurogenic claudication .D:Date: 07/09/23 : 02:00pm .T:Title: *[facility] Date of :[birth year] [id number]: NKDA Age: 67 year Height: 5'4" Weight: 212 lbs BMI: 36.39 kg/m2 Occupation: U/E VAS: 6 CHIEF COMPLAINT: Preoperative evaluaton for revision [id number] decompression and fusion with removal of hardware DOI: Chronic DOS: s/p L2-L5 decompression and fusion (2008) Duration of current treatment regiment:n/a HISTORY: Xrays No new xrays taken in office Trauma or injury No Work-Related No Pain description aching, burning, increasing Location posterior Patient notes that their pain radiates to bilateral lower extremities Activity Modification No Hand Dominance right TREATMENTS COMPLETED: 6 weeks of PT completed? Month and Year of last PT date? No Physician directed home exercise completed? yes Patient has trialed the physician directed home exercise program without relief of their symptoms. Medications yes List: [place] 7.5, Lyrica, Eliquis, Ropinerole Alternative interventions Chiropractic: No Massage therapy: yes R.I.C.E: yes Brace: No Injections Yes How many? 2 Did they help? No RFA: No SUBJECTIVE: Ms. Julio returns to the office today for a preoperative evaluation for her revision [id number] decompression and fusion with removal of hardware. Otherwise the patient denies any f/c/sob/cp, no bladder or bowel retention/incontinence, no perineal numbness/tingling, and ambulates independen tly. HPI: Ms. Julio returns to the office on 05/01/2023 for a recheck of her low back pain.Since her last visit patient has had an increase in left hip pain, increase in lumbar pain, and increase in right leg pain. She continues to report an aching and burning lumbar pain that is sharp intermittently. Patient states she cannot lay on her back due to increased symptoms. In addition to her lumbar pain, the pain radiates into her bilateral buttocks and hip to the posterior regions of her bilateral lower extremities to her knees, associated with numbness and tingling. She does report that her right buttock and right lower extremity is worse than the left. Patient had an BOOGIE on 04/22/23 without relief. She also had a right SI joint injection with 100% relief for one day. Patient is having moderate sleep disturbances as well due to their ongoing pain and associated symptoms.Regarding treatments, the patient has previously trialed the above listed modalities. Patient denies trialing any other modalities at this time. For their symptoms, the patient has been taking Eliquis, Ropinerole, Lyrica and [place]. Otherwise the patient denies any f/c/sob/cp, no bladder or bowel retention/incontinence, no perineal numbness/tingling, and ambulates independently. Ms. Julio presents to the office on 03/05/23 for a recheck of her low back pain. Patient states her symptoms have increased since last visit.She states her lumbar and hip pain have both increased. She continues to report an aching and burning lumbar pain that is sharp intermittently. Patient states she cannot lay on her back due to increased symptoms. In addition to her lumbar pain, the pain radiates into her bilateral buttocks and hip to the posterior regions of her bilateral lower extremities to her knees, associated with numbness and tingling. She does report that her right buttock and right lower extremity is worse than the left. Patient is having moderate sleep disturbances as well due to their ongoing pain and associated symptoms.Regarding treatments, the patient has previously trialed the above listed modalities. Patient denies trialing any other modalities at this time. For their symptoms, the patient has been taking Lyrica and [place]. Otherwise the patient denies any f/c/sob/cp, no bladder or bowel retention/incontinence, no perineal numbness/tingling, and ambulates independently. Ms. Julio presents to the office on 02/10/23 for a recheck of her low back pain and CT myelogram results. Patient states her symptoms have remained the same since the last office visit. She continues to report an aching and burning lumbar pain that is sharp intermittently. Patient states she cannot lay on her back due to increased symptoms. In addition to her lumbar pain, the pain radiates into her bilateral buttocks and hip to the posterior regions of her bilateral lower extremities to her knees, associated with numbness and tingling. She does report that her right buttock and right lower extremity is worse than the left. Patient is continuing to have moderate sleep disturbances as well due to their ongoing pain and associated symptoms.Regarding treatments, the patient has previously trialed the above listed modalities. Patient denies trialing any other modalities at this time. For their symptoms, the patient has been taking Lyrica and [place]. CT myelogram results have been reviewed and discussed. Otherwise the patient denies any f/c/sob/cp, no bladder or bowel retention/incontinence, no perineal numbness/tingling, and ambulates independently. Ms. Julio was last seen on 10/03/22 regarding an evaluation of their low back pain. Patient reports an aching and burning lumbar pain ongoing for multiple years with no known injury or trauma to indicate an exact onset of their symptoms. Patient does report having a L2-L5 decompression and fusion performed in 2008. Patient states she did have relief of symptoms after procedure. Her symptoms returned approximately 2-3 years ago. Patient reports an incident of increased pain when she went to stand up and felt a rubber band type snapping in her right groin. In addition to their lumbar pain, they do report that it radiates into the bilateral lower extremities, associated with numbness and tingling. Patient reports numbness and tingling is greater in the right lower extremity Overall the patient has seen a progressive increase in symptoms since their onset. Ms. Julio symptoms are exacerbated with ambulation, stairs, lifting, and sitting for a period of time, due to this they notes that it is increasingly difficult for Ms. Julio to complete many of their daily tasks. Patient is having moderate sleep disturbances as well due to their ongoing pain and associated symptoms. Patient does report previous orthopedic surgeries of right hip, leg and knee surgery. Regarding treatments, the patient has previously trialed the above listed modalities. Patient denies trialing any other modalities at this time. For their symptoms, the patient has been taking Lyrica and [place]. Otherwise the patient denies any f/c/sob/cp, no bladder or bowel retention/incontinence, no perineal numbness/tingling, and ambulates independently. The patients' past social, medical, family, surgical history, as well as review of systems, have been reviewed. Please refer to the Neurosurgery History and Physical form that has been scanned in to our electronic medical record system. 14 points review of systems completed and as stated in HPI, all other systems reviewed are negative. Social History: Reviewed, see appropriate section of the chart for details. P3 Family History: Reviewed, see appropriate section of the chart for details. P2 Past Medical History: Reviewed, see appropriate section of the chart for details. [id number] Medications: Rx: SEE SCANNED LIST , Ref: 0 Rx: HYDROcodone 7.5 mg-acetaminophen 325 mg tablet Ref: 0 Rx: Lyrica 150 mg capsule Ref: 0 P1 PHYSICALEXAMINATION: General:Awake, alert, appropriate for age, in no acute distress. HEENT: No unusual neck masses around region of lateral neck triangle, thyroid, supraclavicular groove Heart:Regular rate and rhythm, normal S1, S2 and no murmur/gallop. Lungs:Clear to auscultation bilaterally with no use of accessory muscles. Extremities:Skin warm and dry without acute lesions, coloration, temperature, skin intact, no tenderness or erythema Integument: Hairy patches: ABSENT Dorsal skin dimples: ABSENT Cafe au lait spots: ABSENT Surgical incisions: Well healed lumbar incision Palpation: Please see Pain drawing on Intake sheet for further detail. Midline spinal tenderness: No E6 Cervical Tenderness: No E6 Paralumbar tenderness: No E6 Parathoracic tenderness: No E6 Buttocks tenderness:Yes E6 Sacroilliac Tenderness: yes Laterality: Right Pos compression Neg distraction Pos Thrust Pos FABER4 POSTURAL and MUSCULO-SKELETAL EVALUATION: Coronal Balance: NEUTRAL Recumbent testing: Patient is able to lay flat on back Sagittal Balance: NEUTRAL Shoulder Profile: LEVEL Pelvic Girdle: LEVEL Neck ROM: UNRESTRICTED Lumbar ROM: RESTRICTED Shoulder ROM: Symmetrical Hip ROM: Symmetrical Knee ROM: Symmetrical Hands: Normal appearance, symmetrical Feet: Normal appearance, Symmetrical VASCULAR STATUS : LEFTRIGHT Wrist Pulses INTACT INTACT Pedal Pulses (Dors. pedis & post.tibialis) INTACT INTACT Color NORMAL NORMAL Edema Absent Absent NEUROLOGIC EXAMINATION: Mental Status:Awake and alert, fully oriented, with normal attention, concentration and memory, and fluent, appropriate speech. Cranial Nerves: I: Olfactory not tested. II: Visual acuity normal, no visual field deficit noted with confrontation. III,IV: Normal pupillary reflexes & intact extraocular movements without nystagmus. V,: Intact symmetrical facial sensation. VII: Intact symmetrical facial motor movement VIII: Hearing intact. IX,X: Intact gag, swallow, & normal voice. XI: Sternocleidomastoid, trapezius function intact. XII: Tongue midline with normal movements. L'hermitte's Sign: Negative / absent Spurling'Sign: Absent bilaterally. Cubital percussion test: Absent bilaterally. Ramos-Tinel sign - Carpal region: Absent bilaterally. Straight Leg Raising: Absent bilaterally. Crossed straight leg raise: negative O8 Vera Finger test: Positive right MOTOR EXAM (0-5/5, N/T Muscle appearance: Symmetrical, without signs of atrophy or dystrophy UPPER EXTREMITY RIGHT LEFT Shoulder Abduction 5/5 5/5 Biceps 5/5 5/5 Triceps 5/5 5/5 Wrist Extension 5/5 5/5 Hand Intrinsics 5/5 5/5 Camp Attendant 5/5 5/5 LOWER EXTREMITY RIGHT LEFT Hip Flexion 4/5 4/5 Knee Extension 4/5 4/5 Knee Flexion 4/5 4/5 Dorsiflexion 4/5 4/5 Plantarflexion 4/5 4/5 EHL 4/5 4/5 FHL 4/5 4/5 Toe heel walk / heel-toe walk intact while maintaining satisfactory balance? yes Squatting/straightening w/o assistance to a min of 60 degree knee flexion? yes Single leg stance:Positive right. Trendelenburg sign negative bilaterally REFLEXES(0-4/2, NT)Upper ExtremityLower Extremity Right 2 2 Left 2 2 Pathological Reflexes RIGHT LEFT Ramos's Absent Absent Clonus Absent Absent Babinski Absent Absent Sensory system (0-4, N/T) Test type RU ANIBAL RL LL Joint-Position 2 2 2 2 Vibration 2 2 2 2 Pain & LT sense 2 2 2 2 Dermatomal Deficit: None None L1-3 L1-2 Gait and Functional Evaluation: Ambulatory aids:Independent Romberg's test:Intact bilaterally Steady Gait RADIOGRAPHIC STUDIES: XRay Lumbar Multiview (AP, Lateral, Flexion, Extension) with AP pelvis; 5 views taken at [facility] on 10/03/22: Hardware present L2-L5 maintains position. L1-L2 adjacent segment disease. Chronic T12 compression fracture noted. mild grade 1 spondylolisthesis L5 onto S1. No acute osseous abnormalities. CT Myelogram [facility] at [facility] from01/31/23 of Lumbar Spine: IMPRESSION: 1. STATUS POST L2-L5 POSTERIOR AND INTERBODY FUSION WITH SATISFACTORY INTERBODY ANKYLOSIS. ORTHOPEDIC HARDWARE APPEARS SATISFACTORY. 2. MODERATE TO ADVANCED DEGENERATIVE DISC DISEASE ABOVE THE FUSION AT L1-L2 WITH A TRACE GRADE 1 RETROLISTHESIS. WHILE THERE IS DISC OSTEOPHYTE COMPLEX HERE THAT IMPRESSES ON THE VENTRAL THECAL SAC, THERE IS NO SIGNIFICANT SPINAL CANAL STENOSIS. 3. FACET ARTHROPATHY BELOW THE FUSION AT L5-S1. 4. 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 ADDITIONAL VARIABLE MILD TO MODERATE NEUROFORAMINAL NARROWING OUTLINED ABOVE. IMPRESSION: It was my pleasure to have seen and examined Joshua. I reviewed the patient's clinical syndrome, physical findings, and imaging studies during the appointment today. It is my impression that the patient has a diagnosis of. 1. h/o L2-L5 decompression and fusion 2. Adjacent segment disease L1-L2, L2-3, and L5-S1 3.Mild grade 1 retrolisthesis L1 onto L2 4. Right sacroiliitis 5. Bilateral lower extremity radiculopathy 6. Lower extremity weakness 7. Neurogenic claudication I outlined the natural course history without intervention and various interventional options. PLAN: Based on my findings I suggest the following course of action: -I discussed treatment options with the patient, including operative and non- operative options, and they have elected to proceed with the following surgical procedure: [id number] Revision Decompression and Fusion and Removal of Hardware The indications, risks, benefits, and alternatives to surgery were discussed with the patient and family at length. Specifically (but not limited to) the risks of infection, stiffness, recurrence of symptoms, need for revision surgery, local numbness, neurovascular injury, and blood clots were discussed. The patient's questions were answered. The decision to proceed was made. Consent will be obtained for the procedure. -Ambulate daily -Take medications as directed -Ice and rest for pain and swelling control. Spine Surgery Risk Review Ms. Julio is presenting for evaluation of lumbar pain. It was my pleasure to have seen and examined Ms. Julio. In our visit today we have had a chance to go over subjective complaints, physical examination findings and treatments including the natural course history without intervention and various interventional options. The patients imaging demonstrates: XRay Lumbar Multiview (AP, Lateral, Flexion, Extension) with AP pelvis; 5 views taken at [facility] on 10/03/22: Hardware present L2-L5 maintains position. L1-L2 adjacent segment disease. Chronic T12 compression fracture noted. mild grade 1 spondylolisthesis L5 onto S1. No acute osseous abnormalities. CT Myelogram scancompleted at [facility] from01/31/23 of Lumbar Spine: IMPRESSION: 1. STATUS POST L2-L5 POSTERIOR AND INTERBODY FUSION WITH SATISFACTORY INTERBODY ANKYLOSIS. ORTHOPEDIC HARDWARE APPEARS SATISFACTORY. 2. MODERATE TO ADVANCED DEGENERATIVE DISC DISEASE ABOVE THE FUSION AT L1-L2 WITH A TRACE GRADE 1 RETROLISTHESIS. WHILE THERE IS DISC OSTEOPHYTE COMPLEX HERE THAT IMPRESSES ON THE VENTRAL THECAL SAC, THERE IS NO SIGNIFICANT SPINAL CANAL STENOSIS. 3. FACET ARTHROPATHY BELOW THE FUSION AT L5-S1. 4. 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 ADDITIONAL VARIABLE MILD TO MODERATE NEUROFORAMINAL NARROWING OUTLINED ABOVE. On physical exam, Ms. Julio demonstrates: Since her last visit patient has had an increase in left hip pain, increase in lumbar pain, and increase in right leg pain. She continues to report an aching and burning lumbar pain that is sharp intermittently. Patient states she cannot lay on her back due to increased symptoms. In addition to her lumbar pain, the pain radiates into her bilateral buttocks and hip to the posterior regions of he r bilateral lower extremities to her knees, associated with numbness and tingling. She does report that her right buttock and right lower extremity is worse than the left. Patient had an BOOGIE on 04/22/23 without relief. She also had a right SI joint injection with 100% relief for one day. Patient is having moderate sleep disturbances as well due to their ongoing pain and associated symptoms. I have explained to the patient that as their condition progresses it will cause further neurological deficits and eventual paralysis. Based on the patients imaging, physical exam, and the rapid progression and disabling nature of their symptoms, at this time I recommend surgery in the form of a: [id number] Revision Decompression and Fusion and Removal of Hardware I discussed the risk and benefits of this procedure at length with Ms. Julio. The patient and significant other agreed to considered pursuing the procedure abovementioned. Prior to surgery, she should follow up with her PCP (Cardio, ID, IM etc) for clearance. Questions were invited and answered, and the patient wishes to proceed as outlined below. Currently, I am recommendin.[id number] Revision Decompression and Fusion and Removal of Hardware 2.Follow up with PCP for surgical clearance 3.Review of surgical risks and benefits as well as an educational packet on the proposed surgical procedure. Risks: All surgical procedures come with inherent risks, including those related to positioning, anesthesia, intraoperative findings, and postoperative complications. It is important to understand that surgery does not come with any guarantee of a successful outcome as complications and adverse events are always possible. The patient was given a handout in office today discussing the surgical procedure and risks associated with the intervention, both of which were discussed with the patient. These risks include but are not limited to the following: * Experiencing same, different or even worse symptoms in back, neck, arms, or legs compared to before surgery. Requiring further surgery or other forms of treatment presently or at some time in the future at same or other levels of the intended spine surgery. On an extreme but fortunately relatively rare basis severe complication such as blindness, stroke, heart attack, temporary and/or permanent nerve injury, paralysis, coma, or may occur, sometimes without known explan ation. Surgical complications may include but are not limited to risk of infection, fluid accumulation in the surgical dissection site, including a seroma or hematoma, that requires additional surgery, wound drainage, bleeding, new numbness or weakness, vision changes/loss, spinal fluid leakage, non-healing and/or infected incision, headaches, difficulty or inability to swallow, hoarseness, hemopneumothorax, pneumothorax, impotence, retrograde ejaculation, vaginal dryness; injury to nerves, spinal cord, blood vessels, lymphatics or other vital organs (i.e., bowel injury, injury to the great vessels); heterotopic bone formation; complications related to the hardware such as screws, rods, cages including misplaced hardware, device failure, instrumentation at the wrong spine level, hardware fracture/breakage, or hardware loosening; vertebral failure of the spinal column above or below the newly placed hardware; retained surgical instrumentations or devices and the need for further surgery. * Medical risks of the planned spine surgery include but are not limited to generalized Infections to the whole body or local areas outside of the surgical site (sepsis), heart attack, bleeding, anaphylaxis, meningitis, seizure, epilepsy, hearing loss, burn arcos, laceration of the head or other areas of the body, bruising, hypersensitivity of the skin, bladder over distension; allergic reaction; shoulder injury related to positioning; fat, blood and air clots to other areas of the body like heart, lungs, brain; failure of internal organs such as lungs, kidneys, liver and excessive bleeding. If blood transfusions are necessary, note that transfusions may cause intolerance reactions such as anaphylaxis or other complex reactions. Despite best efforts, the results of spine surgery might not heal in terms of bone, soft tissues such as skin, fascia, ligaments, and joints. Additionally, in order to achieve best possible results, spine surgery may be carried out beyond the initially planned levels and involve decompression, fusion including insertion of hardware at levels other than the original intended area of surgical interest change some portions of the procedure in order to ensure the best possible outcomes. With spine surgery and spinal fusion, there are different off label uses of instrumentation (devices, implants and hardware) as well as biological substa nces (bone morphogenic proteins, demineralized bone matrix) as well as using extra bone from allograft sources (i.e. cadaver bone) or autograft (iliac crest bone, ribs, or the spine itself). The patient has been given information about these practices and their inherent risks and benefits. [facility] is an educational center that serves as a training facility for neurosurgical and orthopedic CARE MANAGEMENT SPECIALIST and Nursing students. Physician assistants are medically trained surgical providers who function in the outpatient, inpatient, and operating room setting under the direct supervision of the attending surgeon. [facility] has multiple operating rooms with single and overlapping rooms running daily. They currently function under the required guidelines as produced by the [facility] Finance Committee with regards to the overlapping rooms and will continue to comply with changes to this policy as they occur. The requirements include and are complied with as follows: (1) the critical portions of the overlapping rooms will not occur at the same time, (2) the attending physician will be physically present during the critical portions of the procedure and immediately available during the entire case, and (3) a back-up attending is designated should the primary attending not be immediately available. The patient has had a chance to review all the listed information, has been given print outs detailing this information, and has had all his/her questions answered to their satisfaction. It was my pleasure to have seen and examined Ms. Julio. In our visit today we have had a chance to go over my understanding of our patient's current condition, the natural course history without intervention and various interventional options. Questions were invited and answered, and the patient wishes to proceed as outlined above. I have seen and examined the patient for 25 minutes and we have spent more than 50% of the time in repeat and detailed counseling about the patient's condition, its natural course history with out and as much as can be predicted with surgery and re-review of various surgical treatment options. In conclusion, Ms. Julio and her spouse requested we proceed with the above suggested surgery and are willing to accept risks and limitations of the suggested surgery as nature of the disease process and our best attempts at treatment for the condition. Thank you again for allowing us to be part of your patient's care. Please don't hesitate to contact me if you have any further questions. Follow- up: FIONA F/U... 1month 6wks 3 months 6 months 1 year Patient Education: (Informational booklet, instructions, etc) given at today's appointment: FIONA YesEd Plan at next visit: FIONA xip xop xray oop Medications Reviewed: YES In our visit today Ms. Julio and I have had a chance to go over my understanding of the patient's current condition, the natural course history without intervention and various interventional options. Questions were invited and answered, and the patient wishes to proceed as outlined above. I will be sure to keep you updated afterMs. Julio returns here for further follow-up. Thank you again for your referral. Please do not hesitate to contact me if you have any further questions. Signed and authenticated by: CORAZON Plascencia [facility]imally [facility]vasive Spine Surgery [address] [facility], [address] [address] This message is confidential, intended only for the named recipient(s) and may contain information that is privileged or exempt from disclosure under applicable law. If you are not the intended recipient(s), you are notified that the dissemination, distribution or copying of this information is strictly prohibited. If you received this message in error, please notify the sender then delete this message. SCRIBE SIGN CC: DEL REFDR... Past Medical History Past Medical History: Fibromyalgia, Hyperlipidemia, Pulmonary Embolus (PE), Seizure Disorder Additional Past Medical History / Comment(s): Possible mini seizures. Brain aneurysm, not large enough for surgery. History of Any Multi-Drug Resistant Organisms: None Reported Past Surgical History: Joint Replacement, Orthopedic Surgery, Tonsillectomy Additional Past Surgical History / Comment(s): Bilateral knee replacement, back surgery with cage placement, right wrist surgery, right hip and leg surgery with steel cheyenne placed, bilateral carpal tunnel release, right foot surgery, Pain Clinic Procedures. Past Anesthesia/Blood Transfusion Reactions: No Reported Reaction Past Psychological History: Anxiety Smoking Status: Current every day smoker Past Alcohol Use History: Abuse Additional Past Alcohol Use History / Comment(s): 50 year smoker, 1/2 pack per day. 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 Past Drug Use History: None Reported - Past Family History Mother Family Medical History: Coronary Artery Disease (CAD), Diabetes Mellitus, Deep Vein Thrombosis (DVT) Brother(s) Family Medical History: Deep Vein Thrombosis (DVT) Sister(s) Family Medical History: Deep Vein Thrombosis (DVT) Daughter(s) Family Medical History: Cancer, Deep Vein Thrombosis (DVT) Additional Family Medical History / Comment(s): Brain tumor. Medications and Allergies Home Medications Medication Instructions Recorded Confirmed Type Apixaban [Eliquis] 5 mg PO BID 10/28/22 07/15/23 History Atorvastatin [Lipitor] 10 mg PO HS 10/28/22 07/15/23 History Ergocalciferol [Vitamin D2 (1250 1 cap PO SA 10/28/22 07/15/23 History Mcg = 50217 Iu)] Famotidine 40 mg PO BID 10/28/22 07/15/23 History Pregabalin [Lyrica] 150 mg PO TID 10/28/22 07/15/23 History Topiramate [Topiramate ER] 50 mg PO HS 10/28/22 07/15/23 History levETIRAcetam [Keppra] 500 mg PO BID 10/28/22 07/15/23 History rOPINIRole HCL [Requip] 1 mg PO HS 10/28/22 07/15/23 History rOPINIRole HCL 0.25 mg PO PC-LUNCH 01/21/23 07/15/23 History HYDROcodone/APAP 10-325MG [[place] 1 tab PO TID 04/21/23 07/15/23 History 10-325] Allergies Allergy/AdvReac Type Severity Reaction Status Date / Time acetaminophen [From Vicodin] Allergy Nausea & Verified 07/15/23 06:08 Vomiting & Diarrhea adhesive tape Allergy Rash/Hives Verified 07/15/23 06:08 amitriptyline Allergy Itching Verified 07/15/23 06:08 diclofenac [From Voltaren] Allergy Rash/Hives Verified 07/15/23 06:08 gabapentin [From Neurontin] Allergy Itching Verified 07/15/23 06:08 hydrocodone [From Vicodin] Allergy Nausea & Verified 07/15/23 06:08 Vomiting & Diarrhea latex Allergy Rash/Hives Verified 07/15/23 06:08 Penicillins Allergy Anaphylaxis Verified 07/15/23 06:08 Physical Examination Osteopathic Statement: *. No significant issues noted on an osteopathic structural exam other than those noted in the History and Physical/Consult.
[2023-07-15] MEDS ORDERED: LACTATED RINGERS 1,000 ML IV ONE ×6 (06:54→11:11)
[2023-07-15] MEDS ORDERED: MIDAZOLAM 2 MG/2 ML VIAL IVP ONE (06:57)
[2023-07-15] MEDS ORDERED: MIDAZOLAM 2 MG/2 ML VIAL IV PRN (07:00)
[2023-07-15] MEDS ORDERED: ePHEDrine 50 MG/ML 1 ML VIAL ONE (07:35)
[2023-07-15] MEDS ORDERED: fentaNYL (PF) 50 MCG/ML 2 ML AMP ONE (07:35)
[2023-07-15] MEDS ORDERED: PROPOFOL 10 MG/ML 20 ML VIAL IV ONE (07:35)
[2023-07-15] MEDS ORDERED: LIDOCAINE 2% INJ 20 MG/ML (2 ML VIAL) ONE (07:35)
[2023-07-15] MEDS ORDERED: GLYCOPYRROLATE 0.2 MG/ML 2 ML VIAL ONE (07:35)
[2023-07-15] MEDS ORDERED: NEOSTIGMINE 1 MG/ML 10 ML VIAL ONE (07:35)
[2023-07-15] MEDS ORDERED: TRANEXAMIC 1,000 MG/100ML-NACL PREMIX BAG ONE (07:35)
[2023-07-15] MEDS ORDERED: SUCCINYLCHOLINE CHLORIDE 200 MG/10 ML VIAL IV ONE (07:35)
[2023-07-15] MEDS ORDERED: MIDAZOLAM 2 MG/2 ML VIAL ONE (07:35)
[2023-07-15] MEDS ORDERED: ROCURONIUM 10 MG/ML (5 ML VIAL) IV ONE (07:35)
[2023-07-15] MEDS ORDERED: GELATIN SPONGE,ABSORB (LARGE) 1 EACH SPONGE MISCELLANE ONE (08:31)
[2023-07-15] MEDS ORDERED: THROMBIN (BOVINE) 5,000 UNIT VIAL MISCELLANE ONE (08:31)
[2023-07-15] MEDS ORDERED: GENTAMICIN 80 MG in SODIUM CHLORIDE 0.9% IRRIGATIO 3,000 ML IRRIGATION ONE (08:53)
[2023-07-15] MEDS ORDERED: ceFAZolin 3,000 MG in SODIUM CHLORIDE 0.9% IRRIGATIO 3,000 ML IRRIGATION ONE (08:54)
[2023-07-15] MEDS ORDERED: SODIUM CHLORIDE 0.9% 50 ML with ceFAZolin 1,000 MG IV ONE ×2 (11:50)
[2023-07-15] MEDS ORDERED: VANCOMYCIN 1,000 MG VIAL MISCELLANE ONE (13:09)
[2023-07-15] MEDS ORDERED: ONDANSETRON 4 MG/2 ML VIAL IVP PRN (14:37)
[2023-07-15] MEDS ORDERED: SENNOSIDES-DOCUSATE SODIUM 1 EACH TAB PO PRN (14:37)
[2023-07-15] MEDS ORDERED: MAGNESIUM HYDROXIDE 2,400 MG/30 ML CUP PO PRN (14:37)
[2023-07-15] MEDS ORDERED: HYDROmorphone 0.5 MG/0.5 ML SYRINGE IVP PRN (14:40)
[2023-07-15] MEDS: HYDROmorphone 0.5 MG/0.5 ML SYRINGE IVP PRN ×2 (14:40→17:50)
--- NOTE | 2023-07-15 14:40 | XR ---
Intraoperative/procedural fluoroscopic services were provided for [id number] fusion. Total fluoroscop y time is 32.1 seconds with a total of 7 submitted images to PACS. Total DAP 12.456 Gycm2. Please se e the operative note for further details.
--- NOTE | 2023-07-15 16:01 | XR ---
EXAMINATION TYPE: XR chest 1V confirm line [facility] DATE OF EXAM: 07/15/2023 COMPARISON: NONE HISTORY: post central line placement TECHNIQUE: Single frontal view of the chest is obtained. FINDINGS: PICC line seen overlying the right atrium basilar subsegmental consolidation. Surgical sta ples and rods are noted. There is no overt failure pneumothorax. No pleural effusion or focal pneumon ia. Diffuse osteopenia. IMPRESSION: Basilar atelectasis with underlying COPD favored over pneumonia.
[2023-07-15] MEDS: LACTATED RINGERS 1,000 ML IV SCH (17:27)
[2023-07-15] MEDS: ACETAMINOPHEN TAB 325 MG TAB PO SCH (17:43)
[2023-07-15] MEDS: PREGABALIN 75 MG CAP PO SCH ×2 (17:50→20:37)
[2023-07-15] MEDS: 0.9% NACL WITH KCL 20 MEQ/L 1,000 ML IV SCH (18:22)
[2023-07-15] MEDS: HYDROcodone/APAP 10-325MG 1 EACH TAB PO PRN (20:37)
[2023-07-16] MEDS: ACETAMINOPHEN TAB 325 MG TAB PO SCH ×4 (00:19→18:01)
[2023-07-16] MEDS: HYDROmorphone 0.5 MG/0.5 ML SYRINGE IVP PRN ×3 (00:53→20:49)
[2023-07-16] MEDS: LACTATED RINGERS 1,000 ML IV SCH (05:17)
[2023-07-16] MEDS: PREGABALIN 75 MG CAP PO SCH ×3 (08:10→20:48)
[2023-07-16] MEDS: HYDROcodone/APAP 10-325MG 1 EACH TAB PO PRN ×2 (08:11→17:49)
--- NOTE | 2023-07-16 09:13 | CT ---
EXAMINATION TYPE: CT lumbar spine wo con CT DLP: 2350.6 mGycm, Automated exposure control for dose reduction was used. DATE OF EXAM: 07/16/2023 8:45 AM COMPARISON: CT 01/31/2023. CLINICAL INDICATION:Female, 68 years old with history of post surgical [id number], Post surgical T-10 -pelvis TECHNIQUE: Multiple axial images were obtained from the midportion of T11 through the sacroiliac meagan nts. Soft tissue and bone windows in coronal and sagittal planes were obtained and reviewed. Contrast used: none. Oral contrast used: none. FINDINGS: Postsurgical changes to the lumbar spine with fixation hardware at now extending from T10 to the sacr oiliac joints Discectomy at L5-S1. Hardware limits evaluation at these levels. Hardware appears intac t. No evidence of fracture. Postsurgical changes in the soft tissues with foci of gas present. Posterior back skin ephraim are p resent. Arroyo catheter in place. Right hip fixation hardware appears intact. Atherosclerosis of the a rterial vasculature. Infrarenal abdominal aorta dilation up to 2.0 cm. Mild atelectasis in the left l kiara base peripherally. Surgical change with multiple clips present in the retroperitoneum. IMPRESSION: Postsurgical changes without evidence of immediate post operative complication.
--- NOTE | 2023-07-16 09:24 | P.PN ---
Subjective Progress Note Date: 07/16/23 Principal diagnosis: 1. h/o L2-L5 decompression and fusion 2. Adjacent segment disease L1-L2, L2-3, and L5-S1 3.Mild grade 1 retrolisthesis L1 onto L2 4. Right sacroiliitis 5. Bilateral lower extremity radiculopathy 6. Lower extremity weakness 7. Neurogenic claudication Patient seen and examined this morning. Patient is resting comfortable in bed. She does have complained of a sharp pain in the left lumbar region. Medications will be adjusted. Patient is requesting to sit more upright, bed is at the max. Informed patient that she would probably feel more comfortable being up in the chair. Patient would like to wait for physical therapy at this time. Surgical dressing is clean dry and intact, 1 Hemovac has dislodged and been removed. 2 Hemovac is currently holding compression and patent. Patient denies any numbness or tingling to bilateral lower extremities. Rees catheter is present and patent with adequate. No acute events overnight. Objective - Vital Signs Vital signs: Vital Signs Temp 97.9 F 07/16/23 07:41 Pulse 98 07/16/23 07:41 Resp 18 07/16/23 07:41 BP 124/76 07/16/23 07:41 Pulse Ox 93 L 07/16/23 07:41 FiO2 Intake & Output 07/15/23 07/16/23 07/16/23 18:59 06:59 18:59 Intake Total 2402 Output Total 850 750 Balance 1552 -750 Weight 98.2 kg Intake: IV 2402 Output: Drainage 125 Bilateral Lower Back 125 Urine 350 625 Estimated Blood Loss 500 Other: Voiding Method Indwelling Catheter # Bowel Movements 0 - Exam Physical Examination General: The patient is awake and alert, in no acute distress Skin: Skin is warm and dry with no obvious rashes or lesions. Surgical incision to the thoracolumbar region, surgical dressing is clean dry and intact 1 Hemovac present, holding compression. Eye: Pupils are equal, round and reactive to light, extra-ocular movements are intact; there is normal conjunctiva bilaterally. Neck: The neck is supple, there is no tenderness and ROM intact. Cardiovascular: There is a regular rate and rhythm. No murmur, rub or gallop is appreciated. Respiratory: Lungs are clear to auscultation, respirations are non-labored, breath sounds are equal. Gastrointestinal: Soft, non-distended, non-tender abdomen. Back: There is no tenderness to palpation in the midline, paralumbar, parathoracic or buttocks region. There is no obvious deformity . Musculoskeletal: ROM limited secondary to pain and stiffness from surgical procedure. Muscle strength in all major muscle groups of bilateral upper extremities 5/5, bilateral lower extremities 4/5. Neurological: CN 2-12 intact. There are no obvious motor or sensory deficits. Movement and coordination equal and intact. Sensory exam to light touch intact C5-T1 and intact from L2-S1. Reflexes 2/4 in bilateral upper and lower extremities. Negative Hoffmans, babinski, and clonus signs. Psychiatric: Cooperative, appropriate mood & affect, normal judgment. Assessment and Plan Assessment: Post-Op Day 1: Revision [id number] decompression and fusion 1. h/o L2-L5 decompression and fusion 2. Adjacent segment disease L1-L2, L2-3, and L5-S1 3.Mild grade 1 retrolisthesis L1 onto L2 4. Right sacroiliitis 5. Bilateral lower extremity radiculopathy 6. Lower extremity weakness 7. Neurogenic claudication Plan: -Appreciate sr. consultant and team management. -Activity: Ambulate QID, OOB all meals, up and about, limit lifting bending twisting to less than 5 lbs. Use walker or cane if needed for stability. -Daily PT/OT, increase ambulation strength and balance. -Brace when up and about, not needed in bed or chair -Pain control: Adequate at this time -Meds: reviewed -GI ppx: senna, Miralax -DC rees when up and about, bedside commode if needed -DVT PPX: OK to restart Heparin tonight -Hygiene: Shower today. Maintain dressing clean and dry. Meticulous cleaning after BMs away from the incision site -Drains: Maintain for now. DC later today pending out put and PT -Encourage IS 10x/hr -Dispo: Clinically pending *I reviewed and discussed this case with my attending Dr. Palacios, whom has reviewed this chart and films and is in agreement with assessment and plan of care as outlined above. I have personally seen and examined the patient, performed the documentation and the assessment and plan as written. Number of minutes spent on the visit: 20m.
[2023-07-16] MEDS: 0.9% NACL WITH KCL 20 MEQ/L 1,000 ML IV SCH (10:21)
[2023-07-16] MEDS: CYCLOBENZAPRINE 5 MG TAB PO SCH ×3 (10:21→20:48)
[2023-07-16 12:47] LABS: BUN/Creat Ratio 18.71 Ratio (12.00-20.00); Blood Urea Nitrogen 13.1 mg/dL (9.0-27.0); Calcium 8.7 mg/dL (8.7-10.3); Carbon Dioxide 22.6 mmol/L (21.6-31.8); Chloride 109 mmol/L (96-109); Glucose 99 mg/dL (70-110); Potassium 3.6 mmol/L (3.5-5.5); Sodium 141 mmol/L (135-145)
[2023-07-16 12:57] LABS: Basophils # (A) 0.03 X 10*3/uL (0.00-0.10); Basophils % (A) 0.3 %; Eosinophils # (A) 0.02 X 10*3/uL (0.04-0.35); Eosinophils % (A) 0.2 %; HCT 32.5 % (37.2-46.3); Lymphocytes # (A) 1.66 X 10*3/uL (0.90-5.00); Lymphocytes % (A) 15.5 %; MCH 33.2 pg (27.0-32.0); MCHC 33.8 d/dL (32.0-37.0); MCV 98.2 FL (80.0-97.0); Monocytes % (A) 8.4 %; NRBC Per 100 WBC 0 X 10*3/uL (0.00-0.01); Neutrophils # (A) 8.04 X 10*3/uL (1.80-7.70); Neutrophils % (A) 75.1 %; Platelet Count 126 X 10*3/uL (140-440); RBC 3.31 X 10*6/uL (4.10-5.20); RDW 13.9 % (11.5-14.5)
--- NOTE | 2023-07-16 14:39 | P.CONS ---
History of Present Illness - Reason for Consult Consult date: 07/16/23 Medical management nicotine dependence, seizure disorder, anxiety Requesting physician: Jaret Palacios - Chief Complaint Hold back pain, or extremity weakness - History of Present Illness This is 68-year-old female admitted with low back pain, low extremity weakness, history of L2-L5 decompression and fusion ,status post T10 pelvis radiation decompression and fusion and removal of hardware. Hemovac dislodged, removed from left lower quadrant. Complains of left lower quadrant tenderness. Denies chest pain palpitations or shortness of breath. Denies numbness or tingling of bilateral lower extremities. Passing flatus, no bowel movement-last bowel movement yesterday morning. Hemoglobin 11, Platelets 126. Review of Systems Constitutional: Denied any fatigue denied any fever. Cardio vascular: denied any chest pain, palpitations Gastrointestinal denied any nausea vomiting Pulmonary: Denied any shortness of breath cough Neurologic denied any new focal deficits Past Medical History Past Medical History: Fibromyalgia, Hyperlipidemia, Pulmonary Embolus (PE), Seizure Disorder Additional Past Medical History / Comment(s): Possible mini seizures. Brain aneurysm, not large enough for surgery. History of Any Multi-Drug Resistant Organisms: None Reported Past Surgical History: Joint Replacement, Orthopedic Surgery, Tonsillectomy Additional Past Surgical History / Comment(s): Bilateral knee replacement, back surgery with cage placement, right wrist surgery, right hip and leg surgery with steel cheyenne placed, bilateral carpal tunnel release, right foot surgery, Pain Clinic Procedures. Past Anesthesia/Blood Transfusion Reactions: No Reported Reaction Smoking Status: Current every day smoker - Past Family History Mother Family Medical History: Coronary Artery Disease (CAD), Diabetes Mellitus, Deep Vein Thrombosis (DVT) Brother(s) Family Medical History: Deep Vein Thrombosis (DVT) Sister(s) Family Medical History: Deep Vein Thrombosis (DVT) Daughter(s) Family Medical History: Cancer, Deep Vein Thrombosis (DVT) Additional Family Medical History / Comment(s): Brain tumor. Medications and Allergies Home Medications Medication Instructions Recorded Confirmed Type Apixaban [Eliquis] 5 mg PO BID 10/28/22 07/15/23 History Atorvastatin [Lipitor] 10 mg PO HS 10/28/22 07/15/23 History Ergocalciferol [Vitamin D2 (1250 1 cap PO SA 10/28/22 07/15/23 History Mcg = 22514 Iu)] Famotidine 40 mg PO BID 10/28/22 07/15/23 History Pregabalin [Lyrica] 150 mg PO TID 10/28/22 07/15/23 History Topiramate [Topiramate ER] 50 mg PO HS 10/28/22 07/15/23 History levETIRAcetam [Keppra] 500 mg PO BID 10/28/22 07/15/23 History rOPINIRole HCL [Requip] 1 mg PO HS 10/28/22 07/15/23 History rOPINIRole HCL 0.25 mg PO PC-LUNCH 01/21/23 07/15/23 History HYDROcodone/APAP 10-325MG [[place] 1 tab PO TID 04/21/23 07/15/23 History 10-325] Allergies Allergy/AdvReac Type Severity Reaction Status Date / Time acetaminophen [From Vicodin] Allergy Nausea & Verified 07/15/23 06:08 Vomiting & Diarrhea adhesive tape Allergy Rash/Hives Verified 07/15/23 06:08 amitriptyline Allergy Itching Verified 07/15/23 06:08 diclofenac [From Voltaren] Allergy Rash/Hives Verified 07/15/23 06:08 gabapentin [From Neurontin] Allergy Itching Verified 07/15/23 06:08 hydrocodone [From Vicodin] Allergy Nausea & Verified 07/15/23 06:08 Vomiting & Diarrhea latex Allergy Rash/Hives Verified 07/15/23 06:08 Penicillins Allergy Anaphylaxis Verified 07/15/23 06:08 Physical Exam Vitals: Vital Signs Temp Pulse Pulse Resp BP BP Pulse Ox 07/16/23 13:48 97.6 F 112 H 18 119/77 94 L 07/16/23 07:41 97.9 F 98 18 124/76 93 L 07/16/23 01:46 97.6 F 90 17 114/67 93 L 07/15/23 19:34 97.4 F L 77 17 109/63 98 07/15/23 17:20 71 16 118/79 98 07/15/23 16:33 82 16 124/59 100 07/15/23 16:15 79 16 122/60 100 07/15/23 16:00 78 16 125/60 100 07/15/23 15:46 81 16 123/59 144/57 100 07/15/23 15:30 82 18 119/56 144/61 100 07/15/23 15:16 79 18 124/57 158/62 100 07/15/23 15:02 78 18 116/55 139/56 100 07/15/23 14:45 79 18 126/72 142/58 100 07/15/23 14:31 97.1 F L 81 18 139/57 100 Intake and Output 07/15/23 07/16/23 07/16/23 22:59 06:59 14:59 Output Total 750 1800 Balance -750 -1800 Output: Drainage 125 Bilateral Lower Back 125 Urine 625 1800 Other: Voiding Method Indwelling Catheter # Bowel Movements 0 Weight 98.2 kg PHYSICAL EXAM: VITAL SIGNS: [As above] GENERAL: Lying in bed, no acute distress HEENT: Normocephalic, Conjunctivae normal. eyes normal. NECK: Supple, No JVD. No thyroid enlargement. No LNs CARDIOVASCULAR: S1, S2 regular.. No murmur RESPIRATION: Equal air entry, Breath sounds diminished in the bases. No rhonchi or crackles. No bronchial breathing. ABDOMEN: Soft, nondistended,left lower quadrant tenderness-site of prior hemavac,No guarding. no masses palpable. No ascites, No hepatosplenomegaly.Bowel sounds heard. LEGS: No edema. no swelling PSYCHIATRY: Alert and oriented X3, mood and affect normal. NERVOUS SYSTEM: Cranial N 2-12 grossly normal. No focal deficits. Strength and sensation grossly intact. Skin: Warm and dry, no rash Results CBC & Chem 7: 07/16/23 07:05 07/16/23 07:05 Labs: Abnormal Lab Results - Last 24 Hours (Table) 07/16/23 Range/Units 07:05 WBC 10.70 H (4.50-10.00) X 10*3/uL RBC 3.31 L (4.10-5.20) X 10*6/uL Hgb 11.0 L (12.0-15.0) d/dL Hct 32.5 L (37.2-46.3) % MCV 98.2 H (80.0-97.0) FL MCH 33.2 H (27.0-32.0) pg Plt Count 126 L (140-440) X 10*3/uL MPV 13.0 H (9.5-12.2) FL Neutrophils # 8.04 H (1.80-7.70) X 10*3/uL Eosinophils # 0.02 L (0.04-0.35) X 10*3/uL Assessment and Plan Assessment: Presentation [id number] decompression and fusion History of L2-L5 decompression and fusion, bilateral lower extremity radiculopathy and weakness Seizure disorder Ongoing nicotine dependence, smoking cessation reinforced History of PE Fibromyalgia Hyperlipidemia Multiple orthopedic surgeries Plan: Continue on current medication regime, monitoring and symptomatic treatment. PT. Pain management, DVT prophylaxis as per orthopedic spine. Ag gressive pulmonary toileting with incentive spirometer reinforced. Discharge planning in progress as per PCP. Follow-up with PCP in one week. Thank you for the consult. The impression and plan of care has been dictated as directed. : I performed a history and examination of this patient, discussed the same with the dictator. I agree with the dictator's note ,documented as a scribe. Any additional findings or plans will be noted.
[2023-07-16] MEDS: NICOTINE 14MG/24HR PATCH TRANSDERM SCH (17:51)
[2023-07-16] MEDS: levETIRAcetam 500 MG TAB PO SCH ×2 (17:51→20:48)
[2023-07-16] MEDS: FAMOTIDINE 20 MG TAB PO SCH (17:52)
[2023-07-16] MEDS: ATORVASTATIN 10 MG TAB PO SCH (20:48)
[2023-07-16] MEDS: TOPIRAMATE 25 MG TAB PO SCH (20:52)
[2023-07-17] MEDS: ACETAMINOPHEN TAB 325 MG TAB PO SCH ×4 (00:42→17:23)
[2023-07-17] MEDS: LACTATED RINGERS 1,000 ML IV SCH (00:44)
[2023-07-17] MEDS: 0.9% NACL WITH KCL 20 MEQ/L 1,000 ML IV SCH (06:10)
[2023-07-17] MEDS: HYDROcodone/APAP 10-325MG 1 EACH TAB PO PRN ×2 (08:06→20:01)
[2023-07-17] MEDS: levETIRAcetam 500 MG TAB PO SCH ×2 (08:06→20:01)
[2023-07-17] MEDS: FAMOTIDINE 20 MG TAB PO SCH ×2 (08:06→17:29)
[2023-07-17] MEDS: CYCLOBENZAPRINE 5 MG TAB PO SCH ×3 (08:06→21:32)
[2023-07-17] MEDS: PREGABALIN 75 MG CAP PO SCH ×3 (08:06→21:32)
[2023-07-17] MEDS: NICOTINE 14MG/24HR PATCH TRANSDERM SCH (08:07)
[2023-07-17] MEDS: HYDROmorphone 0.5 MG/0.5 ML SYRINGE IVP PRN (09:04)
--- NOTE | 2023-07-17 10:22 | US ---
EXAMINATION TYPE: US abdomen limited DATE OF EXAM: 07/17/2023 Exam done portable COMPARISON: CT 2022 CLINICAL INDICATION: Female, 68 years old with history of rule out free fluid; TECHNIQUE: Scanned all 4 quadrants and midline pelvis. FINDINGS/IMPRESSION: No free fluid identified.
--- NOTE | 2023-07-17 11:21 | P.PN ---
Subjective Progress Note Date: 07/17/23 Principal diagnosis: Status post revision T10 to pelvis decompression and fusion Patient was evaluated at bedside today, she was sitting up in her chair. I was notified by nursing that the drains have both fallen out on the left and right hand side, the sutures remain in place, the hip had to reinforce the dressing due to some serosanguineous drainage. Patient has been utilizing the TLSO brace when up and ambulating. Urinary catheter is removed, she was urinating with no issues. She is passing gas at this time, she denies a bowel movement. She feels the legs are improving with regards to range of motion and strength. She denies headaches, lightheadedness, chest pain or shortness of breath. Objective - Vital Signs Vital signs: Vital Signs Temp 98.5 F 07/17/23 08:00 Pulse 111 H 07/17/23 08:00 Resp 18 07/17/23 08:00 BP 112/71 07/17/23 08:00 Pulse Ox 91 L 07/17/23 08:58 FiO2 21 07/17/23 08:58 Intake & Output 07/16/23 07/17/23 07/17/23 18:59 06:59 18:59 Output Total 2300 1100 Balance -2300 -1100 Output: Urine 2300 1100 Other: Voiding Method Indwelling Catheter Toilet Toilet - Exam Gen: AOx3, NAD VSS stable at this time Integument: Postoperative bandage was removed today at bedside, ephraim are all in good position and condition. Drain sites are clean and intact. New dressing was applied today. 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 in the bilateral lower extremities with hip flexion, knee extension, knee flexion, plantar flexion, dorsiflexion, EHL, FHL Reflexes: 2/4 in all UE and LE Negative Naomi's, Babinski, clonus bilaterally Special Test: Negative straight leg raise bilaterally, negative logroll maneuver bilaterally - Labs CBC & Chem 7: 07/16/23 07:05 07/16/23 07:05 Labs: Abnormal Lab Results - Last 24 Hours (Table) 07/16/23 Range/Units 07:05 WBC 10.70 H (4.50-10.00) X 10*3/uL RBC 3.31 L (4.10-5.20) X 10*6/uL Hgb 11.0 L (12.0-15.0) d/dL Hct 32.5 L (37.2-46.3) % MCV 98.2 H (80.0-97.0) FL MCH 33.2 H (27.0-32.0) pg Plt Count 126 L (140-440) X 10*3/uL MPV 13.0 H (9.5-12.2) FL Neutrophils # 8.04 H (1.80-7.70) X 10*3/uL Eosinophils # 0.02 L (0.04-0.35) X 10*3/uL Assessment and Plan Assessment: Postoperative day #3 status post [id number] decompression and fusion Postoperative anemia, expected surgical outcome Other medical comorbidities Plan: Pain control, continue with [place] 10 mg/325 mg, Dilaudid for severe pain. He can also utilize Flexeril GI prophylaxis, continue use of daily stool softeners DVT prophylaxis, we'll restart Eliquis tonight Await CBC results, patient was noted to be tachycardic today. This may be related to anemia versus pain. We'll start ferrous sulfate 325 mg twice a day Encourage incentive spirometer Continue daily PT/OT. Weight-bear as tolerated with walker. TLSO brace when up and ambulating Other director biomedical engineering recommendations Discharge planning: Hopeful discharged home with home healthcare in the next 2448 hours Time with Patient: Less than 30
[2023-07-17 12:10] LABS: Basophils % (A) 0 %; Eosinophils # (A) 0.2 k/uL (0-0.7); Eosinophils % (A) 2 %; HCT 29.7 % (34.0-46.0); HGB 10.1 gm/dL (11.4-16.0); Lymphocytes # (A) 2.3 k/uL (1.0-4.8); Lymphocytes % (A) 23 %; MCH 34.3 pg (25.0-35.0); MCV 101.1 fL (80.0-100.0); Macrocytosis Slight; Mean Platelet Volume 9.8; Monocytes # (A) 0.6 k/uL (0-1.0); Monocytes % (A) 6 %; Neutrophils % (A) 68 %; Platelet Count 114 k/uL (150-450); RBC 2.94 m/uL (3.80-5.40); RDW 13.7 % (11.5-15.5); WBC 10.2 k/uL (3.8-10.6)
[2023-07-17] MEDS ORDERED: IPRATROPIUM-ALBUTEROL 3 ML NEB INHALATION PRN (14:32)
[2023-07-17] MEDS: SYMBICORT 80-4.5 MCG INHALER INHALATION SCH ×2 (14:56→20:51)
--- NOTE | 2023-07-17 15:08 | P.PN ---
Subjective Progress Note Date: 07/17/23 - History of Present Illness This is 68-year-old female admitted with low back pain, low extremity weakness, history of L2-L5 decompression and fusion ,status post T10 pelvis radiation decompression and fusion and removal of hardware. Hemovac dislodged, removed from left lower quadrant. Complains of left lower quadrant tenderness. Denies chest pain palpitations or shortness of breath. Denies numbness or tingling of bilateral lower extremities. Passing flatus, no bowel movement-last bowel movement yesterday morning. Hemoglobin 11, Platelets 126. 07/17/2023 bilateral Hemovac's dislodged on both left and right hand side. Complains of left lower quadrant tenderness radiating across to right lower quadrant. Reports discomfort worsened with sitting and alleviated by a mbulating. Reports positive chills, no sweats. Denies bowel movement, passing flatus. Dressing clean dry and intact. Denies chest pain, palpitations or shortness of breath. Denies lightheadedness dizziness or focal deficits. Mild tachycardia, maintaining O2 sats in the low 90s on room air. Afebrile, normal WBC. Hemoglobin 10.1, platelets 114. Objective - Vital Signs Vital signs: Vital Signs Temp 98.5 F 07/17/23 08:00 Pulse 111 H 07/17/23 08:00 Resp 18 07/17/23 08:00 BP 112/71 07/17/23 08:00 Pulse Ox 91 L 07/17/23 08:58 FiO2 21 07/17/23 08:58 Intake & Output 07/16/23 07/17/23 07/17/23 18:59 06:59 18:59 Output Total 2300 1100 Balance -2300 -1100 Output: Urine 2300 1100 Other: Voiding Method Indwelling Catheter Toilet Toilet - Exam PHYSICAL EXAM: VITAL SIGNS: [As above] GENERAL: Alert and oriented 3, sitting up in chair,, no acute distress HEENT: Normocephalic, Conjunctivae normal. eyes normal. NECK: Supple, No JVD. No thyroid enlargement. No LNs CARDIOVASCULAR: S1, S2 regular.. No murmur. RESPIRATION: Unlabored Equal air entry, Breath sounds diminished in the bases. No rhonchi or crackles. No bronchial breathing. ABDOMEN: Soft, nondistended, diffuse bilateral lower quadrant tenderness,No guarding. no masses palpable. +BS. LEGS: No edema. no swelling NERVOUS SYSTEM: Cranial N 2-12 grossly normal. No focal deficits. Strength and sensation grossly intact. Skin: Warm and dry, no rash. Reinforced dressing clean dry and intact. - Labs CBC & Chem 7: 07/17/23 11:55 07/16/23 07:05 Labs: Abnormal Lab Results - Last 24 Hours (Table) 07/17/23 Range/Units 11:55 RBC 2.94 L (3.80-5.40) m/uL Hgb 10.1 L (11.4-16.0) gm/dL Hct 29.7 L (34.0-46.0) % MCV 101.1 H (80.0-100.0) fL Plt Count 114 L (150-450) k/uL Assessment and Plan Assessment: Status post revision [id number] decompression and fusion History of L2-L5 decompression and fusion, bilateral lower extremity radiculopathy and weakness Postoperative anemia, expected outcome Thrombocytopenia Atelectasis, postop, expected outcome COPD Seizure disorder Ongoing nicotine dependence, smoking cessation reinforced History of PE Fibromyalgia Hyperlipidemia Multiple orthopedic surgeries Plan: Continue on current medication regime, monitoring and symptomatic treatment. Ultrasound of abdomen and pelvis, secondary to bilateral lower quadrant pain .PT. Pain management. Aggressive pulmonary toileting with incentive spirometer reinforced. Nebulized bronchodilators and Symbicort added to med regimen for COPD maintenance. IV fluids pivld. Close monitoring of hemoglobin and platelets.Ferrous sulfate initiated as per primary team. The impression and plan of care has been dictated as directed. : I performed a history and examination of this patient, discussed the same with the dictator. I agree with the dictator's note ,documented as a scribe. Any additional findings or plans will be noted.
[2023-07-17] MEDS: IPRATROPIUM-ALBUTEROL 3 ML NEB INHALATION SCH ×2 (16:15→20:51)
[2023-07-17] MEDS: FERROUS SULFATE 325 MG TAB PO SCH (17:22)
--- NOTE | 2023-07-17 17:53 | P.OP ---
Date of Procedure: 07/15/23 Preoperative Diagnosis: 1. PSEUDOARTHROSIS L2-3, L3-4 2. 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 LE WEAKNESS, LE RADICULOPATHY 4. LOW BACK PAIN 5. NEUROGENIC CLAUDICATION Postoperative Diagnosis: 1. PSEUDOARTHROSIS L2-3, L3-4 2. 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 LE WEAKNESS, LE RADICULOPATHY 4. LOW BACK PAIN 5. NEUROGENIC CLAUDICATION Procedure(s) Performed: 1. L5-S1 POSTERIOLATERAL AND INTERBODY FUSION (35061) 2. [id number] POSTERIOLATERAL INSTRUMENTED FUSION WITH REVISION L2-5 POSTERIOLATERAL FUSION (87764, [id number]) 3. K43-[id number] SEGMENTAL INSTRUMENTATION (05890) 4. ATTACHMENT OF THE CAUDAL END OF THE CONSTRUCT TO THE BONY PELVIS NOT SACRUM (42989) 5. L4-S1 BILATERAL LAMINECTOMY, FACETECTOMY AND FORAMINOTOMY FOR DECOMPRESSION OF NEURAL ELEMENTS AND CAGE PLACEMENT (34423, 40640) 6. REMOVAL OF SEGMENTAL HARDWARE L2-L5 7. EXPLORATION OF PSEUDOARTHROSIS L2-3, L3-4 8. USE OF [employer] NAVIGATION FOR SCREW PLACEMENT (91955) USE OF IONM Implants: -GINA EVEREST SCREW AND ABNER SYSTEM -GLOBUS SABLE CAGE 12MM 10-17, 15 DEG -MAGNATOS, ALLOCELL, ARTHROCELL, IFACTOR, AUTOGRAFT Anesthesia: GETA Surgeon: Jaret Palacios Gear Repair Supervisor #1: Manuel Gee (WAS PRESENT AND ASSISTED WITH ALL ASPECTS OF THE CASE FROM POSITIONING TO CLOSURE. ) Estimated Blood Loss (ml): 500 IV fluids (ml): 3,500 Urine output (ml): 450 Pathology: none sent Condition: stable Disposition: PACU Indications for Procedure: Ms. Julio is presenting for evaluation of lumbar pain. It was my pleasure to have seen and examined Ms. Julio. In our visit today we have had a chance to go over subjective complaints, physical examination findings and treatments including the natural course history without intervention and various interventional options. The patients imaging demonstrates: XRay Lumbar Multiview (AP, Lateral, Flexion, Extension) with AP pelvis; 5 views taken at [facility] on 10/03/22: Hardware present L2-L5 maintains position. L1-L2 adjacent segment disease. Chronic T12 compression fracture noted. mild grade 1 spondylolisthesis L5 onto S1. No acute osseous abnormalities. CT [facility] from[facility]23 of Lumbar Spine: IMPRESSION: 1. STATUS POST L2-L5 POSTERIOR AND INTERBODY FUSION WITH SATISFACTORY INTERBODY ANKYLOSIS. ORTHOPEDIC HARDWARE APPEARS SATISFACTORY. 2. MODERATE TO ADVANCED DEGENERATIVE DISC DISEASE ABOVE THE FUSION AT L1-L2 WITH A TRACE GRADE 1 RETROLISTHESIS. WHILE THERE IS DISC OSTEOPHYTE COMPLEX HERE THAT IMPRESSES ON THE VENTRAL THECAL SAC, THERE IS NO SIGNIFICANT SPINAL CANAL STENOSIS. 3. FACET ARTHROPATHY BELOW THE FUSION AT L5-S1. 4. 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 ADDITIONAL VARIABLE MILD TO MODERATE NEUROFORAMINAL NARROWING OUTLINED ABOVE. On physical exam, Ms. Julio demonstrates: Since her last visit patient has had an increase in left hip pain, increase in lumbar pain, and increase in right leg pain. She continues to report an aching and burning lumbar pain that is sharp intermittently. Patient states she cannot lay on her back due to increased symptoms. In addition to her lumbar pain, the pain radiates into her bilateral buttocks and hip to the posterior regions of her bilateral lower extremities to her knees, associated with numbness and tingling. She does report that her right buttock and right lower extremity is worse than the left. Patient had an BOOGIE on 04/22/23 without relief. She also had a right SI joint injection with 100% relief for one day. Patient is having moderate sleep disturbances as well due to their ongoing pain and associated symptoms. I have explained to the patient that as their condition progresses it will cause further neurological deficits and eventual paralysis. Based on the patients imaging, physical exam, and the rapid progression and disabling nature of their symptoms, at this time I recommend surgery in the form of a: [id number] Revision Decompression and Fusion and Removal of Hardware I discussed the risk and benefits of this procedure at length with Ms. Julio. The patient and significant other agreed to considered pursuing the procedure abovementioned. Prior to surgery, she should follow up with her PCP (Cardio, ID, IM etc) for clearance. Questions were invited and answered, and the patient wishes to proceed as outlined below. Currently, I am recommendin.[id number] Revision Decompression and Fusion and Removal of Hardware Description of Procedure: Revision [id number]-[id number] Decompression and fusion QUOC The patient was seen and examined in the preoperative area. All preoperative protocols were followed. Informed consent was obtained, risks and benefits of the procedure were discussed at length. Risks including bleeding infection damage to the surrounding tissue and risk of re-operation were discussed with the patient. Risk of anesthesia up to and including was discussed with the patient. These are outlined in the risk review. They were willing to accept these risks and all the risks of surgery. The patient was given a weight-based dose of antibiotics in the form of 3 g Ancef. The patient was seen and evaluated by the anesthesia team who deemed them fit for surgery. The site was marked, the patient was willing to proceed with the procedure. The patient was transferred to the operative suite by the Department of anesthesia. They were then drifted off to sleep by the department anesthesia and GETA was performed. The patient tolerated this well. Arroyo catheter was placed by nursing staff, a-traumatically. Once confirmation of lines and ventilation the patient was transferred to a prone Trios spine table very carefully. The head was secured and stable. Xray confirmed alignment. All bony prominences including wrists, elbows, axilla, chest, hips, and thighs, and feet were padded very well. Special attention was paid to the genitalia, and these were padded accordingly. SCDs were placed on bilateral lower extremities and were connected. Arms were well padded and placed at 90/90 up and out and well padded. Safety strap and tape placed on the patient. Once in position, again we confirmed good ventilation capabilities and that lines were running appropriately. The patients lumbosacral pelvic was then exposed. Hair was removed for incision. 1010s were placed outlining the incision site. Standard alcohol was used to clean the incision site and allowed to dry. C-arm was used to bio-paulie the patient and confirm level for incision which was marked with a skin marker. Operative briefing was performed with all teams and everyone in agreement to proceed. The patient was then prepped and draped in a normal sterile fashion. Timeout was then performed, and all parties agreed with the procedure to be performed. Midline skin incision was then made over the previously bookmarked area and dissection taken down to the lumbosacral fascia which was identified and cleaned with a vargas. Once midline was identified, fasciotomy was made over the SP of [id number]. Subperiosteal dissection was then taken down over the lamina and facet joints and TPs were exposed and trough made posterolateral. Previous hardware was identified from L2-5. This was removed. Screws at L3 b/l were loose as well as at L1 bilaterally. There was motion at L1-2 and L3-[address] ill due to pseudoarthrosis and incomplete fusion. Fusion was explored. Once hardware was removed, scar tissue was removed and exposed. TPs were then decorticated L1-S1 and sacral ala with a high speed marilee for posteriolateral fusion. Dissection was taken out over the sacrum to the pelvis. SI joint identified and modified Zarate starting point for pelvic screws identified as well. Retractors placed. Wound was irrigated and lateral image with penfield 4 placed at the pars of L4 confirmed levels for operation. SP clamp was then placed for the [employer] navigation tracker and secured at L2 for the first set of screws. The wound was then filled with NSS and Z-drape placed. A 3D Zhiem spin was then obtained and registered. Once confirmation of accuracy screws were then placed from T10-L2 using navigation. Navigated high speed marilee was used to make a helicopter pilot instructor hole followed by a navigated awl-tap passed through the pedicle into the body. A ball tip probe then confirmed within the pedicle. Globus Screws then measured and placed using a navigated screwdriver. After screws were placed from T10-L2 the tracker was replaced at S1 and a second 3D Zhiem spin was then obtained and registered. Once confirmation of accuracy screws were then placed from L3-Pelvis using navigation. AP image confirmed safe placement of screws. Lateral images as well as navigation were then used to place bilateral pelvic screws. Starting point selected just lateral to the SI joint and S2 pseudo facet. Lateral image taken and marilee used to make the helicopter pilot instructor hole. Gearshift then used to pass into the pelvis under lateral imaging just above the sciatic notch. 30 deg/30deg iliac oblique then taken to confirm within the teardrop and ball tip probe used to probe good bone. Screw was then measured and selected and placed under lateral imaging. This was repeated on the contralateral side. Screws were then visualized under AP and were safe. Inlet outlet views also confirmed good placement of screws . Screws were then tested, and reliably tested screws tested above 17 mA. The wound was irrigated and attention was turned to decompression, correction and interbody fusion. Starting at L5-S1, bilateral laminectomy, complete facetectomy and foraminotomies were performed using high speed bur, Kerrison rongure. There was exuberant bone formation, osteophytes and scar tissue surrounding these joints as well as the dura. Once exposed the neural elements were protected and an interbody disce resection was done. Osteotome was used to make osteotomy in L5 and S1 and for complete disc removal. A box osteotome was then used to widen this bilaterally. This was passed into the anterior 1/3 of L5. This allowed for loosening of this level and correction. Cage was then selected based on fernanda gramajo and trials. Bleeding endplates were encountered and cartilage removed. Autograft, allograft were then placed anterior to the cage. The cage was then impacted into place under lateral imaging while protecting neural elements. The cage was then expanded into position and showed good lift and correction. Holiness of lordosis and height achieved. Meticulous hemostasis then performed. Cage was backfilled with DBM and the area irrigated. We then proceeded to revision decompression from L4-S1. Bilateral laminectomy complete facetectom and foraminotomies completed at L4-5 and L5-S1 for decompression in this region. Meticulous hemostasis was achieved after. Attention was then drawn to abner placement and further reduction. Rods were selected, measured, cut and bent to appropriate lordosis. They were then secured into pelvic screws b/l. Sequential reduction then done into each screw and set screw placed. Set screws were then final tightened and lateral image showed good lordosis reduction with increase in LL. Once rods were secured, cross links were selected and placed and final tightened. The wound was then irrigated with 3L Ancef irrigation, 3L gentamicin irrigation and 3L NSS. Surgicel was then placed on the dura, which was inspected and had no injury. Then, in the posterolateral gutter was placed, MagnatOs, Autograft and allograft. This was impacted into position and surgical placed over it. 2g Vanco powder was then placed deep in the wound. Two deep, subfascial drains were placed and secured with a stitch. We then proceeded with layered closure. #1 PDS placed in the deep fascia followed by a running unidirectional 0 stratafix. 0 Vicryl placed in the deep subq, 2-0 placed in the superficial subq and ephraim placed in the skin. The wound edges approximated very well. The wound was then cleaned with ETOH and dressed with optifoam dressing, drain sponges and tegaderms. Drains sewed into position. IONM confirmed no changes. The patient was then transferred off the [facility] spine table to their hospital bed a-traumatically. Drains continued to hold suction. The patient was then extubated and transferred to the ICU in stable condition having tolerated the procedure with no complications.
[2023-07-17] MEDS: APIXABAN 5 MG TAB PO SCH (20:02)
[2023-07-17] MEDS: ATORVASTATIN 10 MG TAB PO SCH (20:02)
[2023-07-17] MEDS: TOPIRAMATE 25 MG TAB PO SCH (20:11)
[2023-07-17] MEDS ORDERED: NICOTINE 14MG/24HR PATCH TRANSDERM SCH ×3 (22:00→22:10)
[2023-07-18] MEDS: ACETAMINOPHEN TAB 325 MG TAB PO SCH ×3 (00:33→12:02)
[2023-07-18] MEDS: HYDROcodone/APAP 10-325MG 1 EACH TAB PO PRN ×2 (03:28→08:53)
[2023-07-18] MEDS: FERROUS SULFATE 325 MG TAB PO SCH (06:48)
[2023-07-18] MEDS: IPRATROPIUM-ALBUTEROL 3 ML NEB INHALATION SCH ×2 (09:10→11:50)
[2023-07-18] MEDS: PREGABALIN 75 MG CAP PO SCH (09:10)
[2023-07-18] MEDS: levETIRAcetam 500 MG TAB PO SCH (09:10)
[2023-07-18] MEDS: CYCLOBENZAPRINE 5 MG TAB PO SCH (09:10)
[2023-07-18] MEDS: APIXABAN 5 MG TAB PO SCH (09:10)
[2023-07-18] MEDS: FAMOTIDINE 20 MG TAB PO SCH (09:10)
[2023-07-18] MEDS: SYMBICORT 80-4.5 MCG INHALER INHALATION SCH (09:10)
[2023-07-18] MEDS ORDERED: polyethylene glycoL 3350 17 GM POWD.PACK PO SCH (10:45)
--- NOTE | 2023-07-18 11:14 | P.PN ---
Subjective Progress Note Date: 07/18/23 - History of Present Illness This is 68-year-old female admitted with low back pain, low extremity weakness, history of L2-L5 decompression and fusion ,status post T10 pelvis radiation decompression and fusion and removal of hardware. Hemovac dislodged, removed from left lower quadrant. Complains of left lower quadrant tenderness. Denies chest pain palpitations or shortness of breath. Denies numbness or tingling of bilateral lower extremities. Passing flatus, no bowel movement-last bowel movement yesterday morning. Hemoglobin 11, Platelets 126. 07/17/2023 bilateral Hemovac's dislodged on both left and right hand side. Complains of left lower quadrant tenderness radiating across to right lower quadrant. Reports discomfort worsened with sitting and alleviated by a mbulating. Reports positive chills, no sweats. Denies bowel movement, passing flatus. Dressing clean dry and intact. Denies chest pain, palpitations or shortness of breath. Denies lightheadedness dizziness or focal deficits. Mild tachycardia, maintaining O2 sats in the low 90s on room air. Afebrile, normal WBC. Hemoglobin 10.1, platelets 114. 07/18/23 ultrasound of abdomen and pelvis reported no free fluid. Reports Bilateral lower quadrant tenderness improving. Passing flatus, no bowel movement, MiraLAX ordered. Afebrile. Denies chest pain, palpitations or shortness of breath. Tachycardia resolved .Maintaining O2 sats in the 90s on room air. Labs pending. Objective - Vital Signs Vital signs: Vital Signs Temp 97.4 F L 07/18/23 08:00 Pulse 96 07/18/23 09:23 Resp 15 07/18/23 08:00 BP 136/79 07/18/23 08:00 Pulse Ox 95 07/18/23 09:12 FiO2 21 07/17/23 08:58 Intake & Output 07/17/23 07/18/23 07/18/23 18:59 06:59 18:59 Other: Voiding Method Toilet Toilet # Voids 3 2 - Exam PHYSICAL EXAM: VITAL SIGNS: [As above] GENERAL: Alert and oriented 3, sitting up in chair,, no acute distress HEENT: Normocephalic, Conjunctivae normal. eyes normal. NECK: Supple, No JVD. CARDIOVASCULAR: S1, S2 regular.. No murmur. RESPIRATION: Unlabored Equal air entry, Breath sounds diminished in the bases. ABDOMEN: Soft, nondistended, minimal,diffuse bilateral lower quadrant tenderness,No guarding. no masses palpable. +BS. LEGS: No edema. no swelling NERVOUS SYSTEM: Cranial N 2-12 grossly normal. No focal deficits. Strength and sensation grossly intact. Skin: Warm and dry, no rash. Reinforced dressing clean dry and intact. - Labs CBC & Chem 7: 07/17/23 11:55 07/16/23 07:05 Labs: Abnormal Lab Results - Last 24 Hours (Table) 07/17/23 Range/Units 11:55 RBC 2.94 L (3.80-5.40) m/uL Hgb 10.1 L (11.4-16.0) gm/dL Hct 29.7 L (34.0-46.0) % MCV 101.1 H (80.0-100.0) fL Plt Count 114 L (150-450) k/uL Assessment and Plan Assessment: Status post revision [id number] decompression and fusion History of L2-L5 decompression and fusion, bilateral lower extremity radiculopathy and weakness Postoperative anemia, expected outcome Thrombocytopenia Atelectasis, postop, expected outcome COPD Seizure disorder Ongoing nicotine dependence, smoking cessation reinforced History of PE Fibromyalgia Hyperlipidemia Multiple orthopedic surgeries Plan: Continue on current medication regime, monitoring and symptomatic treatment. PT. MiraLAX for constipation.Maintain aggressive pulmonary toileting with nebulized bronchodilators, Symbicort . incentive spirometer reinforced. Close monitoring of hemoglobin and platelets, labs pending. Discharge planning in progress as per orthopedic surgery The impression and plan of care has been dictated as directed. : I performed a history and examination of this patient, discussed the same with the dictator. I agree with the dictator's note ,documented as a scribe. Any additional findings or plans will be noted.
--- NOTE | 2023-07-18 12:11 | P.DS ---
Providers Date of admission: 07/15/23 05:40 Expected date of discharge: 07/18/23 Attending physician: Jaret Palacios DO Consults: 07/15/23 14:38 Consult Physician Routine Consulting Provider: Eladio Gardner Reason/Comments: medical management Do you want consulting provider notified?: Yes Primary care physician: Eladio Gardner MD Hospital Course: Date of admission: 07/15/2023 Date of discharge: 07/18/2023 Admission diagnosis: 1. PSEUDOARTHROSIS L2-3, L3-4 2. 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 LE WEAKNESS, LE RADICULOPATHY 4. LOW BACK PAIN 5. NEUROGENIC CLAUDICATION Discharge diagnosis: Same Attending physician: Dr. Palacios Surgical procedures: Revision T10 to pelvis decompression fusion Brief history: Patient is a 68-year-old female with a history of lower extremity weakness; lower extremity radiculopathy; low back pain; neurogenic claudication. At this point patient has failed conservative treatment measures and has opted to proceed with a elective revision [id number] decompression and fusion. Hospital course: Details of patient's surgery can be found in operative report. Patient tolerated the procedure well and was subsequently transported to orthopedic floor. Patient's orthopeidc and medical care was provided daily. Patient had daily laboratory tests performed for evaluation of overall blood counts. Patient had daily physical therapy to include strengthening range of motion as well as education with walker ambulation. Patient was noted to have a relatively uneventful postoperative course. Patient reported satisfactory pain control with oral pain medications by postoperative day 3. Patient showed satisfactory progress with physical therapy. Patient moved steadily through the program and had no difficulty meeting the goals by postoperative day 3. Given patient's otherwise satisfactory course and having met physical therapy goals, plan is to discharge patient home with home care on postoperative day 3. Discharge condition/disposition: Patient will be discharged home with home care in stable condition. Discharge medications: Instructions are given on resumption of patient's normal daily medications per primary care recommendation, in addition patient will be prescribed Morenci; Flexeril; Bactrim; senna; Lyrica. Spine Discharge and Recovery Instructions Date of Surgery: 07/15/2023 Diagnosis: 1. PSEUDOARTHROSIS L2-3, L3-4 2. 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 LE WEAKNESS, LE RADICULOPATHY 4. LOW BACK PAIN 5. NEUROGENIC CLAUDICATION Procedure: Revision [id number] decompression fusion Medications: See medication list All medication refills should be obtained through your primary care doctor or your clinic spine surgeon. Please discuss prescription refills at your follow up appointment. Do not call the hospital for medication refills. Dressing: Leave your dressing in place for a total of 5 days post operatively. Then you may remove your dressing and leave open to air. Keep the area clean and if not able to keep area clean, then cover with sterile gauze and tape. Showering: You may shower 3 days after your procedure allowing soap and water to run over incision. Do not scrub. Do not soak. Blot dry. Follow up: Please confirm a follow up appointment with your surgeon 3 weeks post operatively. Please make an appointment to follow up with your PCP in 1-2 weeks after surgery for evaluation 3 phase, 3-week plan POST OP WEEKS 1-3 1. Lifting/carrying/pushing/pulling limited to less than 5 pounds. 2. Do not sit for longer than 15 minutes at one time. Get up and walk around. Prolonged sitting is NOT advised. If you lay down, see if you can tolerate laying down on you front (belly side) 3. Walk for periods of 15 minutes = 1 mile but no longer; do it multiple times times each day. 4. Ice your low back after activity. POST OP WEEKS 3-6 1. Lifting limited to less than 20 pounds. 2. Do not sit for longer than 30 minutes at a time. Frequently change positions. Use a sit-to stand workstation or take frequent breaks from sitting if you have returned to work. 3. Walk for 30 minutes each day. If possible, do these three or more times a day POST OP WEEKS 6+ At your 6-week appointment we will give you a physical therapy referral to focus on a core stabilization and strengthening program. You should also work on leg & buttock strengthening, hamstring & quadriceps stretching, and continue a low impact aerobic activity program such as swimming, walking, or riding a stationary bicycle. During the initial 6 weeks after your surgery, you are at the highest risk of re-injuring your spine. You should generally avoid BLTs (bending, lifting and twisting combination motions) and follow the above guidelines to reduce the chance of reinjury. You can anticipate post op appointments in our office at approximately 3 weeks and 6 weeks after your surgery. INCISION CARE: If your incision is not draining you do NOT need to cover it with a dressing. Keep your incision clean, dry and intact. In most cases, we apply skin glue, ephraim or sutures to the incision at the time of surgery. This will be like a crust or have the appearance of a scab and will fall off in time on its own. The stitches or ephraim need to be removed at 3 weeks post op appointment. You may begin to shower 3 days after surgery (this allows the glue to hendrickson well). However, please avoid scrubbing the incision site or peeling off any of the skin glue. This will ensure optimal healing of your incision. Also, during this time avoid soaking the incision area in water - this includes swimming pools, hot tubs or baths. No ointments, lotions or oils on the incision until your surgeon allows. Leave ephraim, sutures or glue in place. Neurological dysfunction that comes on suddenly can also be a sign of a stroke. Below some common symptoms of a stroke are listed: B - balance difficulty such as sudden onset walking or leaning to one side - NEW E - eye problem such as sudden double vision or trouble seeing on one side - NEW F - Facial weakness or numbness on one side - NEW A - Arm or leg weakness or numbness on one side - NEW S - Slurred speech or difficulty with word finding - NEW T - Time is BRAIN! Call 911 as soon as you recognize these symptoms Diet: Consume a regular diet rich in vegetables and lean protein such as chicken or fish. You should consume in a ratio of approximately 20% fats|40% carbohydrates|40%protein. Vegetables, sweet potatoes, brown rice or quinoa are examples of good carbohydrates. Chips, white bread, cookies and sweets/sugar are examples of bad carbohydrates. Limit your bad carbs, go wild with good carbs. "Life's Simple 7" Guidelines as per [place] [employer] These will help you reclaim your life after surgery and stopper maker helper in your recovery, keeping in mind your restrictions. (1) Get Active. Physical activity can help people lose weight, control high blood pressure and cholesterol, feel emotionally better, and sleep better. (2) Control Cholesterol. Avoid a diet high in saturated fat, trans fat, & cholesterol. Limit whole milk & cream, ice cream, butter, egg yolks, processed meats (like sausage and hot dogs), and fatty meats. Choose healthy foods that are low in saturated fat, trans fat and cholesterol which include: Fruits and vegetables, fiber rich grain products (like whole grain pasta and brown rice), lean meat such as chicken, fish, nuts, seeds, and legumes. (3) Eat Better. Eat small portions. Shop at the grocery with a list and do not stray from it. Tips for a healthy diet include: Limit sodium intake to less than 1500mg daily, avoid prepackaged, processed, and fast foods, choose a diet rich in fruits, vegetables, and whole grain, high fiber foods, and limit saturated & cholesterol in your diet. (4) Manage Blood Pressure. If you have high blood pressure, you should have a cuff at home so that you can check your blood pressure regularly. Be sure you have a good cuff. An arm one is generally better than a wrist one. Bring the cuff to a doctor's appointment to validate that the measurements that your cuff are taking are accurate. Take your blood pressure twice daily when you are sitting down and relaxing. Record the numbers in a log and bring this log with you to your doctors' appointments. (5) Lose Weight if your BMI is above 25. A healthy BMI is between 19-25. To calculate Your BMI, you may use a Standard BMI Calculator on the NIH BMI website: <www.nhlbi.nih.gov/guidelines/obesity/BMI/bmicalc.htm>. Weigh oneself daily. If you are overweight, set a goal to lose weight. A pound a week loss if needed is a good target. (6) Reduce Blood Sugar. Limit foods and liquids with "added sugars." (Added sugars include sucrose, fructose, glucose, maltose, dextrose, high fructose corn syrup, corn syrup, concentrated fruit juice and honey). (7) Stop Smoking. If you smoke, quitting smoking is one of the best things that you can do for your health. Smoking increases your risk of heart attack, stroke, and peripheral vascular disease, which is a build-up of plaque in your arteries. Please discard all the cigarettes and lighters in your house. Have a plan for what you will do when you have the urge to smoke. Direct and second- hand smoke shortens your life as well as the lives of your family, friends and others around you. For your health and the health of those around you, please consider quitting! Proper Bending Body Mechanics: Maintain a wide stance with one foot slightly in front of the other. Keep your back straight. Bend utilizing the strength in your hips and knees. Do not bend at the waist. Maintain the lifted object at your waist-level close to your body. Avoid lifting weight that causes immediately pain or pain anywhere in the body afterwards. Smoking/Nicotine If there was ever one thing that you could do to increase your overall health, decrease your risk of cardiovascular problems by about 39% the second you make the choice, it is to STOP SMOKING. Your body's most instant gratification is the second you stop smoking. We have all heard the studies, read the articles but it is true, smoking is extremely bad for your overall health, and moreover it is detrimental to your bone health. Nicotine, IN ANY FORM, kills bone cells, prevents your body from healing fractures, and significantly prolongs healing after surgery. In spine surgery specifically, it increases your risk of not healing your bones to create a fusion and increases your risk of having a revision surgery due to this up to 60%. I know it is hard. I know it feels impossible. But there are ways. Take control of your life. We are here to help you through it. And when you are ready, ask us and we can direct you to help if you desire. Use the START Plan to Quit Smoking (please visit the Helpguide.org website listed below for more information): S = Set a quit date. Choose a date within the next 2 weeks, so you have enough time to prepare without losing your motivation to quit. If you mainly smoke at work, quit on the weekend, so you have a few days to adjust to the change. T = Tell family, friends, and co-workers that you plan to quit. Let your friends and family in on your plan to quit smoking and tell them you need their support and encouragement to stop. Look for a quit francis who wants to stop smoking as well. You can help each other get through the rough times. A = Anticipate and plan for the challenges you'll face while quitting. Most people who begin smoking again do so within the first 3 months. You can help yourself make it through by preparing ahead for common challenges, such as nicotine withdrawal and cigarette cravings. R = Remove cigarettes and other tobacco products from your home, car, and work. Throw away all your cigarettes (no emergency pack!), lighters, ashtrays, and matches. Wash your clothes and freshen up anything that smells like smoke. Shampoo your car, clean your drapes and carpet, and steam your furniture. T = Talk to your doctor about getting help to quit. Your doctor can prescribe medication to help with withdrawal and suggest other alternatives. If you can't see a doctor, you can get many products over the counter at your local pharmacy or grocery store, including the nicotine patch, nicotine lozenges, and nicotine gum. Resources for Quitting Smoking: <https://www.[place].gov/documents/[facility]/Q uit_Tobacco_Resources_for_patients_313480_7.pdf> Supplementation: Take recommended dosages of Vitamin D and Calcium to help fortify your bones and help them to heal. See your health maintenance packet for dosages and recommended levels. DVT/VTE prophylaxis: You will be given compression stockings from the hospital. Wear these daily for the first two weeks after surgery. You may take them off at night. You may be prescribed a medication to help thin your blood. Take this as directed. If you are not prescribed this medication, early and frequent ambulation has been shown to be the best prophylaxis to deep vein thrombosis and sequelae related to this event. Assessment: 1. PSEUDOARTHROSIS L2-3, L3-4 2. 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 LE WEAKNESS, LE RADICULOPATHY 4. LOW BACK PAIN 5. NEUROGENIC CLAUDICATION Procedures: T10 to pelvis decompression and fusion Patient Condition at Discharge: Good Plan - Discharge Summary Discharge Rx Participant: Yes New Discharge Prescriptions: New Cyclobenzaprine [Flexeril] 5 mg PO TID #21 tablet Pregabalin [Lyrica] 150 mg PO TID #21 cap HYDROcodone/APAP 10-325MG [Morenci 10-325] 1 - 2 tab PO Q4-6H PRN #32 tab PRN Reason: Pain Sennosides/Docusate Sodium [Senna Plus 8.6-50 mg Softgel] 1 each PO DAILY #20 cap Sulfamethox-Tmp 400-80Mg [Bactrim SS 400-80 mg] 1 tab PO Q12HR 5 Days #10 tablet No Action Famotidine 40 mg PO BID rOPINIRole HCL 0.25 mg PO PC-LUNCH HYDROcodone/APAP 10-325MG [Morenci 10-325] 1 tab PO TID levETIRAcetam [Keppra] 500 mg PO BID Ergocalciferol [Vitamin D2 (1250 Mcg = 70859 Iu)] 1 cap PO SA Topiramate [Topiramate ER] 50 mg PO HS Pregabalin [Lyrica] 150 mg PO TID rOPINIRole HCL [Requip] 1 mg PO HS Atorvastatin [Lipitor] 10 mg PO HS Apixaban [Eliquis] 5 mg PO BID Discharge Medication List Apixaban [Eliquis] 5 mg PO BID 10/28/22 [History] Atorvastatin [Lipitor] 10 mg PO HS 10/28/22 [History] Ergocalciferol [Vitamin D2 (1250 Mcg = 30687 Iu)] 1 cap PO SA 10/28/22 [History] Famotidine 40 mg PO BID 10/28/22 [History] Pregabalin [Lyrica] 150 mg PO TID 10/28/22 [History] Topiramate [Topiramate ER] 50 mg PO HS 10/28/22 [History] levETIRAcetam [Keppra] 500 mg PO BID 10/28/22 [History] rOPINIRole HCL [Requip] 1 mg PO HS 10/28/22 [History] rOPINIRole HCL 0.25 mg PO PC-LUNCH 01/21/23 [History] HYDROcodone/APAP 10-325MG [Morenci 10-325] 1 tab PO TID 04/21/23 [History] Cyclobenzaprine [Flexeril] 5 mg PO TID #21 tablet 07/18/23 [Rx] HYDROcodone/APAP 10-325MG [Morenci 10-325] 1 - 2 tab PO Q4-6H PRN #32 tab 07/18/23 [Rx] Pregabalin [Lyrica] 150 mg PO TID #21 cap 07/18/23 [Rx] Sennosides/Docusate Sodium [Senna Plus 8.6-50 mg Softgel] 1 each PO DAILY #20 cap 07/18/23 [Rx] Sulfamethox-Tmp 400-80Mg [Bactrim SS 400-80 mg] 1 tab PO Q12HR 5 Days #10 tablet 07/18/23 [Rx] Follow up Appointment(s)/Referral(s): Eladio Gardner MD [Primary Care Provider] - 1 Week [facility], [NON-STAFF] - As Needed Jaret Palacios DO [Doctor of Osteopathic Medicine] - 07/30/23 1:45 pm Sim[facility] Sanchez [NON-STAFF] - As Needed (TLSO back brace) Activity/Diet/Wound Care/Special Instructions: Spine Discharge and Recovery Instructions Medications: See medication list All medication refills should be obtained through your primary care doctor or your clinic spine surgeon. Please discuss prescription refills at your follow up appointment. Do not call the hospital for medication refills. Dressing: Leave your dressing in place for a total of 5 days post operatively. Then you may remove your dressing and leave open to air. Keep the area clean and if not able to keep area clean, then cover with sterile gauze and tape. Showering: You may shower 3 days after your procedure allowing soap and water to run over incision. Do not scrub. Do not soak. Blot dry. Follow up: Please confirm a follow up appointment with your surgeon 3 weeks post operatively. Please make an appointment to follow up with your PCP in 1-2 weeks after surgery for evaluation 3 phase, 3-week plan POST OP WEEKS 1-3 1. Lifting/carrying/pushing/pulling limited to less than 5 pounds. 2. Do not sit for longer than 15 minutes at one time. Get up and walk around. Prolonged sitting is NOT advised. If you lay down, see if you can tolerate laying down on you front (belly side) 3. Walk for periods of 15 minutes = 1 mile but no longer; do it multiple times times each day. 4. Ice your low back after activity. POST OP WEEKS 3-6 1. Lifting limited to less than 20 pounds. 2. Do not sit for longer than 30 minutes at a time. Frequently change positions. Use a sit-to stand workstation or take frequent breaks from sitting if you have returned to work. 3. Walk for 30 minutes each day. If possible, do these three or more times a day POST OP WEEKS 6+ At your 6-week appointment we will give you a physical therapy referral to focus on a core stabilization and strengthening program. You should also work on leg & buttock strengthening, hamstring & quadriceps stretching, and continue a low impact aerobic activity program such as swimming, walking, or riding a stationary bicycle. During the initial 6 weeks after your surgery, you are at the highest risk of re-injuring your spine. You should generally avoid BLTs (bending, lifting and twisting combination motions) and follow the above guidelines to reduce the chance of reinjury. You can anticipate post op appointments in our office at approximately 3 weeks and 6 weeks after your surgery. INCISION CARE: If your incision is not draining you do NOT need to cover it with a dressing. Keep your incision clean, dry and intact. In most cases, we apply skin glue, ephraim or sutures to the incision at the time of surgery. This will be like a crust or have the appearance of a scab and will fall off in time on its own. The stitches or ephraim need to be removed at 3 weeks post op appointment. You may begin to shower 3 days after surgery (this allows the glue to hendrickson well). However, please avoid scrubbing the incision site or peeling off any of the skin glue. This will ensure optimal healing of your incision. Also, during this time avoid soaking the incision area in water - this includes swimming pools, hot tubs or baths. No ointments, lotions or oils on the incision until your surgeon allows. Leave ephraim, sutures or glue in place. Neurological dysfunction that comes on suddenly can also be a sign of a stroke. Below some common symptoms of a stroke are listed: B - balance difficulty such as sudden onset walking or leaning to one side - NEW E - eye problem such as sudden double vision or trouble seeing on one side - NEW F - Facial weakness or numbness on one side - NEW A - Arm or leg weakness or numbness on one side - NEW S - Slurred speech or difficulty with word finding - NEW T - Time is BRAIN! Call 911 as soon as you recognize these symptoms Diet: Consume a regular diet rich in vegetables and lean protein such as chicken or fish. You should consume in a ratio of approximately 20% fats|40% carbohydrates|40%protein. Vegetables, sweet potatoes, brown rice or quinoa are examples of good carbohydrates. Chips, white bread, cookies and sweets/sugar are examples of bad carbohydrates. Limit your bad carbs, go wild with good carbs. "Life's Simple 7" Guidelines as per [place] [employer] These will help you reclaim your life after surgery and stopper maker helper in your recovery, keeping in mind your restrictions. (1) Get Active. Physical activity can help people lose weight, control high blood pressure and cholesterol, feel emotionally better, and sleep better. (2) Control Cholesterol. Avoid a diet high in saturated fat, trans fat, & cholesterol. Limit whole milk & cream, ice cream, butter, egg yolks, processed meats (like sausage and hot dogs), and fatty meats. Choose healthy foods that are low in saturated fat, trans fat and cholesterol which include: Fruits and vegetables, fiber rich grain products (like whole grain pasta and brown rice), lean meat such as chicken, fish, nuts, seeds, and legumes. (3) Eat Better. Eat small portions. Shop at the grocery with a list and do not stray from it. Tips for a healthy diet include: Limit sodium intake to less than 1500mg daily, avoid prepackaged, processed, and fast foods, choose a diet rich in fruits, vegetables, and whole grain, high fiber foods, and limit saturated & cholesterol in your diet. (4) Manage Blood Pressure. If you have high blood pressure, you should have a cuff at home so that you can check your blood pressure regularly. Be sure you have a good cuff. An arm one is generally better than a wrist one. Bring the cuff to a doctor's appointment to validate that the measurements that your cuff are taking are accurate. Take your blood pressure twice daily when you are sitting down and relaxing. Record the numbers in a log and bring this log with you to your doctors' appointments. (5) Lose Weight if your BMI is above 25. A healthy BMI is between 19-25. To calculate Your BMI, you may use a Standard BMI Calculator on the NIH BMI website: <www.nhlbi.nih.gov/guidelines/obesity/BMI/bmicalc.htm>. Weigh oneself daily. If you are overweight, set a goal to lose weight. A pound a week loss if needed is a good target. (6) Reduce Blood Sugar. Limit foods and liquids with "added sugars." (Added sugars include sucrose, fructose, glucose, maltose, dextrose, high fructose corn syrup, corn syrup, concentrated fruit juice and honey). (7) Stop Smoking. If you smoke, quitting smoking is one of the best things that you can do for your health. Smoking increases your risk of heart attack, stroke, and peripheral vascular disease, which is a build-up of plaque in your arteries. Please discard all the cigarettes and lighters in your house. Have a plan for what you will do when you have the urge to smoke. Direct and second- hand smoke shortens your life as well as the lives of your family, friends and others around you. For your health and the health of those around you, please consider quitting! Proper Bending Body Mechanics: Maintain a wide stance with one foot slightly in front of the other. Keep your back straight. Bend utilizing the strength in your hips and knees. Do not bend at the waist. Maintain the lifted object at your waist-level close to your body. Avoid lifting weight that causes immediately pain or pain anywhere in the body afterwards. Smoking/Nicotine If there was ever one thing that you could do to increase your overall health, decrease your risk of cardiovascular problems by about 39% the second you make the choice, it is to STOP SMOKING. Your body's most instant gratification is the second you stop smoking. We have all heard the studies, read the articles but it is true, smoking is extremely bad for your overall health, and moreover it is detrimental to your bone health. Nicotine, IN ANY FORM, kills bone cells, prevents your body from healing fractures, and significantly prolongs healing after surgery. In spine surgery specifically, it increases your risk of not healing your bones to create a fusion and increases your risk of having a revision surgery due to this up to 60%. I know it is hard. I know it feels impossible. But there are ways. Take control of your life. We are here to help you through it. And when you are ready, ask us and we can direct you to help if you desire. Use the START Plan to Quit Smoking (please visit the Helpguide.org website listed below for more information): S = Set a quit date. Choose a date within the next 2 weeks, so you have enough time to prepare without losing your motivation to quit. If you mainly smoke at work, quit on the weekend, so you have a few days to adjust to the change. T = Tell family, friends, and co-workers that you plan to quit. Let your friends and family in on your plan to quit smoking and tell them you need their support and encouragement to stop. Look for a quit francis who wants to stop smoking as well. You can help each other get through the rough times. A = Anticipate and plan for the challenges you'll face while quitting. Most people who begin smoking again do so within the first 3 months. You can help yourself make it through by preparing ahead for common challenges, such as nicotine withdrawal and cigarette cravings. R = Remove cigarettes and other tobacco products from your home, car, and work. Throw away all your cigarettes (no emergency pack!), lighters, ashtrays, and matches. Wash your clothes and freshen up anything that smells like smoke. Shampoo your car, clean your drapes and carpet, and steam your furniture. T = Talk to your doctor about getting help to quit. Your doctor can prescribe medication to help with withdrawal and suggest other alternatives. If you can't see a doctor, you can get many products over the counter at your local pharmacy or grocery store, including the nicotine patch, nicotine lozenges, and nicotine gum. Resources for Quitting Smoking: <https://www.[place].gov/documents/mdc h/Quit_Tobacco_Resources_for_patients_313480_7.pdf> Supplementation: Take recommended dosages of Vitamin D and Calcium to help fortify your bones and help them to heal. See your health maintenance packet for dosages and recommended levels. DVT/VTE prophylaxis: You will be given compression stockings from the hospital. Wear these daily for the first two weeks after surgery. You may take them off at night. You may be prescribed a medication to help thin your blood. Take this as directed. If you are not prescribed this medication, early and frequent ambulation has been shown to be the best prophylaxis to deep vein thrombosis and sequelae related to this event. Discharge Disposition: HOME WITH HOME HEALTH SERVICES
--- NOTE | 2023-07-18 12:44 | P.PN ---
Subjective Progress Note Date: 07/18/23 Principal diagnosis: 1. PSEUDOARTHROSIS L2-3, L3-4 2. 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 LE WEAKNESS, LE RADICULOPATHY 4. LOW BACK PAIN 5. NEUROGENIC CLAUDICATION Patient was seen at bedside this morning sitting up in chair. Patient says she has been doing better daily since surgery was performed. Patient says she has been up walking around the room using walker. She says physical therapy has been working with her daily. Patient says she has urinated daily. Patient says she has not had bowel movement yet, however she has been passing gas. Patient says her is at home who can help her out. Patient says she does live on one floor so she will have to worry about going up-and-down stairs when she is home. Patient says she is looking forward to going home later today. Patient denies any numbness/tingling down the lower extremities at this time. Patient does complain about spasms throughout the lower back and at midline incision. Patient denies chest pain, fever, shortness breath, nausea, vomiting, change in color hospital/bladder control. Objective - Vital Signs Vital signs: Vital Signs Temp 97.4 F L 07/18/23 08:00 Pulse 88 07/18/23 11:51 Resp 15 07/18/23 08:00 BP 136/79 07/18/23 08:00 Pulse Ox 95 07/18/23 09:12 FiO2 21 07/17/23 08:58 Intake & Output 07/17/23 07/18/23 07/18/23 18:59 06:59 18:59 Other: Voiding Method Toilet Toilet Toilet # Voids 3 2 - Exam Dressing appeared to be clean, dry, intact. A Seth drain. Branch. Be well aligned at this time. Incision healing well. Positive for fair amount of tenderness to palpation diffusely throughout spine near incision. Nontender to palpation throughout rest exam. Sensation is equal, symmetric, bilaterally intact throughout the upper and lower extremities. Patient has full range of motion throughout upper extremity. There is limited range of motion in bilateral hips and knees in flexion/extension secondary to referred pain to the low back. Full range of motion throughout bilateral ankles and dorsiflexion/plantar flexion bilaterally. 4+/5 in all major motor groups in bilateral upper extremities. 4/5 in all major motor groups bilateral lower extremities. Neurovascular status intact. Cap refill under 3 seconds in digits upper extremity. Radial pulses intact, 2+ bilaterally. Negative clonus bilaterally. Negative Homans bilaterally. Negative Naomi bilaterally. - Labs CBC & Chem 7: 07/17/23 11:55 07/16/23 07:05 Labs: Abnormal Lab Results - Last 24 Hours (Table) 07/17/23 Range/Units 11:55 RBC 2.94 L (3.80-5.40) m/uL Hgb 10.1 L (11.4-16.0) gm/dL Hct 29.7 L (34.0-46.0) % MCV 101.1 H (80.0-100.0) fL Plt Count 114 L (150-450) k/uL Assessment and Plan Assessment: 1. PSEUDOARTHROSIS L2-3, L3-4 2. 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 LE WEAKNESS, LE RADICULOPATHY 4. LOW BACK PAIN 5. NEUROGENIC CLAUDICATION Postoperative day 3 status post revision T10 to pelvis decompression and fusion Plan: 1. PSEUDOARTHROSIS L2-3, L3-4; L1-2 ASD, SPONDYLOSIS WITH STENOSIS; LE WEAKNESS, LE RADICULOPATHY; LOW BACK PAIN; NEUROGENIC CLAUDICATION - surgery performed 07/15/2023. Patient stable at bedside this morning. Dressing is clean, dry, intact. Patient does have a back brace to go home with. Patient does have a walker at home. We will discharge patient home today with home care. 2. Appreciate medical management 3. Pain management -Lyrica; Burdick; Flexeril 4. GI prophylaxis - senna 5. PT/OT - weightbearing as tolerated with walker 6. Encourage incentive spirometer use 7. DVT prophylaxis - mechanical 8. Discharge planning - discharge home today with health services Time with Patient: Less than 30
[2023-07-18 13:34] VITALS: BP 109/56; PULSE 117; RESP 18; TEMP 97.8
[2023-07-18 14:09] LABS: Basophils # (A) 0.08 X 10*3/uL (0.00-0.10); Basophils % (A) 0.8 %; Eosinophils # (A) 0.36 X 10*3/uL (0.04-0.35); Eosinophils % (A) 3.5 %; HCT 28.1 % (37.2-46.3); HGB 9.1 d/dL (12.0-15.0); Lymphocytes # (A) 2.85 X 10*3/uL (0.90-5.00); Lymphocytes % (A) 27.6 %; MCH 32.7 pg (27.0-32.0); MCHC 32.4 d/dL (32.0-37.0); MCV 101.1 FL (80.0-97.0); Mean Platelet Volume 13.2 FL (9.5-12.2); Monocytes # (A) 0.93 X 10*3/uL (0.20-1.00); NRBC Per 100 WBC 0 X 10*3/uL (0.00-0.01); Neutrophils # (A) 6.04 X 10*3/uL (1.80-7.70); Neutrophils % (A) 58.6 %; Platelet Count 110 X 10*3/uL (140-440); RBC 2.78 X 10*6/uL (4.10-5.20); RDW 14.5 % (11.5-14.5); WBC 10.31 X 10*3/uL (4.50-10.00)
[2023-07-18 14:13] LABS: BUN/Creat Ratio 14.57 Ratio (12.00-20.00); Blood Urea Nitrogen 10.2 mg/dL (9.0-27.0); Calcium 8.4 mg/dL (8.7-10.3); Carbon Dioxide 27.2 mmol/L (21.6-31.8); Chloride 105 mmol/L (96-109); Glucose 107 mg/dL (70-110); Potassium 4.1 mmol/L (3.5-5.5); Sodium 140 mmol/L (135-145)
--- NOTE | 2023-07-22 10:47 | CDI ---
Documentation Clarification Form Date: 07/22/2023 10:38:16 AM From: Radha Barber Phone: Admit Date: 07/15/2023 05:40:00 AM Patient Name: Joshua Julio Visit Number: [id number] Discharge Date: 07/18/2023 03:25:00 PM ATTENTION: The Clinical Documentation Specialists (CDI) and [facility] Coding Staff appreciate your assistance in clarifying documentation. Please respond to the clarification below the line at the bottom and electronically sign. The CDI & [facility] Coding staff will review the response and follow-up if needed. Please note: Queries are made part of the Legal Health Record. If you have any questions, please contact the author of this message via ITS. Dr. Jaret Palacios Postoperative anemia is documented per Progress Note 07/17. Additional specificity regarding the type and acuity of anemia is requested. History/Risk Factors: 68yo F, pseudoarthrosisand incomplete fusion sp fusion & decompression, thrombocytopenia, atelectasis,COPD, seizure disorder, smoker, Hx PE Clinical indicators: Hemoglobin: 10.1 Hematocrit: 29.7 Treatment: Continue on current medication regime,monitoringand symptomatic treatment. IV fluids pivld. Closemonitoringof hemoglobin and platelets. Ferrous sulfate initiated as per primary team. Please clarify the type and acuity of anemia: [ ] Acute blood loss anemia [ ] Unable to determine [ ] Other, please specify (Template Last Revised: December 2020) Post operative anemia is an expected outcome of large surgical procedure combined with her multiple comorbid conditions that predispose her to anemia. MIRIAM
== END 2023-07-18 15:25 | disposition home health service (06) | DRG 454 ==
LOC: 2ORMAIN 05:40 → EDSTATUS 07:30 → 4SSUR 16:28
PROVIDERS: ADMIT Orthopaedic Surgery; ATTEND Orthopaedic Surgery
PROC: 0RG7071 Fusion of 2 to 7 Thoracic Vertebral Joints with Autologous Tissue Substitute, Posterior Approach, Posterior Column, Open Approach (ICD-10-PCS; 2023-07-15)
PROC: 0SG3071 Fusion of Lumbosacral Joint with Autologous Tissue Substitute, Posterior Approach, Posterior Column, Open Approach (ICD-10-PCS; 2023-07-15)
PROC: 0RG70AJ Fusion of 2 to 7 Thoracic Vertebral Joints with Interbody Fusion Device, Posterior Approach, Anterior Column, Open Approach (ICD-10-PCS; 2023-07-15)
PROC: 01NB0ZZ Release Lumbar Nerve, Open Approach (ICD-10-PCS; 2023-07-15)
PROC: 01NR0ZZ Release Sacral Nerve, Open Approach (ICD-10-PCS; 2023-07-15)
PROC: 0QP004Z Removal of Internal Fixation Device from Lumbar Vertebra, Open Approach (ICD-10-PCS; 2023-07-15)
PROC: 0QH304Z Insertion of Internal Fixation Device into Left Pelvic Bone, Open Approach (ICD-10-PCS; 2023-07-15)
PROC: 0QH204Z Insertion of Internal Fixation Device into Right Pelvic Bone, Open Approach (ICD-10-PCS; 2023-07-15)
PROC: 8E0WXBZ Computer Assisted Procedure of Trunk Region (ICD-10-PCS; 2023-07-15)
PROC: 0SG30AJ Fusion of Lumbosacral Joint with Interbody Fusion Device, Posterior Approach, Anterior Column, Open Approach (ICD-10-PCS; principal; 2023-07-15 07:30)
DX: M47.26 Other spondylosis with radiculopathy, lumbar region (principal); D62 Acute posthemorrhagic anemia; M48.54XA Collapsed vertebra, not elsewhere classified, thoracic region, initial encounter for fracture; D69.6 Thrombocytopenia, unspecified; G40.909 Epilepsy, unspecified, not intractable, without status epilepticus; J44.9 Chronic obstructive pulmonary disease, unspecified; M96.0 Pseudarthrosis after fusion or arthrodesis; J98.11 Atelectasis; I67.1 Cerebral aneurysm, nonruptured; F10.11 Alcohol abuse, in remission; M48.062 Spinal stenosis, lumbar region with neurogenic claudication; M43.17 Spondylolisthesis, lumbosacral region; M25.78 Osteophyte, vertebrae; G47.9 Sleep disorder, unspecified; F41.9 Anxiety disorder, unspecified; F17.210 Nicotine dependence, cigarettes, uncomplicated; M79.7 Fibromyalgia; E78.5 Hyperlipidemia, unspecified; Z96.653 Presence of artificial knee joint, bilateral; Z71.6 Tobacco abuse counseling; Z86.711 Personal history of pulmonary embolism; Z79.01 Long term (current) use of anticoagulants; Z88.5 Allergy status to narcotic agent; Z88.8 Allergy status to other drugs, medicaments and biological substances; Z91.040 Latex allergy status; Z88.0 Allergy status to penicillin; Z79.899 Other long term (current) drug therapy; Z91.048 Other nonmedicinal substance allergy status
CPT/HCPCS: 72100; 72131; 76705; 80048; 85025; 86850; 86891; 86900; 86901; 87070; 94640; 94760

== ENCOUNTER → 2023-09-09 | Outpatient (CLI) | payer MEDICARE ==
--- NOTE | 2023-09-09 10:38 | MR ---
EXAMINATION TYPE: MR lumbar spine wo con DATE OF EXAM: 09/09/2023 8:46 AM CLINICAL INDICATION:Female, 68 years old with history of T81.31XD disruption of external surgical wou nd; COMPARISON: 07/16/2023 CT. TECHNIQUE: Multi planar, multi sequence imaging was performed utilizing: T1-weighted, T2-weighted, a nd turbo inversion recovery imaging of the lumbar spine. IV Contrast: . (None if empty) FINDINGS: Alignment: The lumbar vertebral bodies have preserved heights and alignment. Cord: The conus medullaris and the distal spinal cord appear unremarkable with regards to their signa l intensity and morphology. Bones/Discs: Multilevel fixation hardware throughout the spine with osteophyte formation disc space n arrowing and facet arthropathy. There is discectomy changes throughout the lower spine. Diffusely ziegler ited exam due to susceptibility artifact throughout every level of the exam. The spinal canal appears patent as well as the bilateral neural foramen within the limitations of this exam. Other findings: The soft tissues posterior to the spine to demonstrate suspected fluid collection ex tending from T12 and extending inferiorly along the posterior elements to at least T2. This area sofia ures at least 10.1 x 2.3 cm. IMPRESSION: 1. Diffusely limited exam secondary to susceptibility artifact. The spinal canal where visualized ap pears patent. Neural foramen where visualized appear patent. 2. Posterior elements/subcutaneous tissue fluid collection which is suboptimally evaluated given ext ensive susceptibility artifact throughout the exam. Findings favored represent seroma.
== END | disposition home or self-care (01) ==
LOC: RADMRIMAIN 07:47
PROVIDERS: ATTEND Family Medicine
DX: T81.31XD Disruption of external operation (surgical) wound, not elsewhere classified, subsequent encounter (principal)
CPT/HCPCS: 72148

== ENCOUNTER 2023-09-16 12:54 | Inpatient (IN) | payer MEDICARE ==
--- NOTE | 2023-09-16 13:55 | ED ---
Recheck HPI - General Chief Complaint: Recheck/Abnormal Lab/Rx Stated Complaint: infected area Time Seen by Provider: 09/16/23 13:04 Source: patient Mode of arrival: ambulatory Limitations: no limitations - History of Present Illness Initial Comments: Patient is a 68 year old female presented to ER with a chief complaint of a wound. Patient was sent here by Dr. Palacios for admission. Patient states she had recent back surgery and she currently has a wound vac on the site. Patient has no new complaints. Denies headaches, visual changes, chest pain, shortness of breath, abdominal pain, fevers, chills or nightsweats. - Related Data Home Medications Medication Instructions Recorded Confirmed Apixaban [Eliquis] 5 mg PO BID 10/28/22 07/15/23 Atorvastatin [Lipitor] 10 mg PO HS 10/28/22 07/15/23 Ergocalciferol [Vitamin D2 (1250 1 cap PO SA 10/28/22 07/15/23 Mcg = 50690 Iu)] Famotidine 40 mg PO BID 10/28/22 07/15/23 levETIRAcetam [Keppra] 500 mg PO BID 10/28/22 07/15/23 rOPINIRole HCL [Requip] 1 mg PO HS 10/28/22 07/15/23 rOPINIRole HCL 0.25 mg PO PC-LUNCH 01/21/23 07/15/23 Cephalexin [Keflex] 500 mg PO TID 09/16/23 09/16/23 HYDROcodone/APAP 7.5-325MG [Herman 1 tab PO TID 09/16/23 09/16/23 7.5-325] Pregabalin [Lyrica] 100 mg PO TID 09/16/23 09/16/23 Sennosides/Docusate Sodium [Senna 1 cap PO DAILY PRN 09/16/23 09/16/23 Plus 8.6-50 mg Softgel] Topiramate [Topamax] 50 mg PO HS 09/16/23 09/16/23 Previous Rx's Medication Instructions Recorded Cyclobenzaprine [Flexeril] 5 mg PO TID #21 tablet 07/18/23 Allergies Allergy/AdvReac Type Severity Reaction Status Date / Time acetaminophen [From Vicodin] Allergy Nausea & Verified 09/16/23 15:06 Vomiting & Diarrhea adhesive tape Allergy Rash/Hives Verified 09/16/23 15:06 amitriptyline Allergy Itching Verified 09/16/23 15:06 diclofenac [From Voltaren] Allergy Rash/Hives Verified 09/16/23 15:06 gabapentin [From Neurontin] Allergy Itching Verified 09/16/23 15:06 hydrocodone [From Vicodin] Allergy Nausea & Verified 09/16/23 15:06 Vomiting & Diarrhea latex Allergy Rash/Hives Verified 09/16/23 15:06 Penicillins Allergy Anaphylaxis Verified 09/16/23 15:06 Review of Systems ROS Statement: Those systems with pertinent positive or pertinent negative responses have been documented in the HPI. ROS Other: All systems not noted in ROS Statement are negative. Past Medical History Past Medical History: Fibromyalgia, Hyperlipidemia, Pulmonary Embolus (PE), Seizure Disorder Additional Past Medical History / Comment(s): possible mini seizures so now on keppra, brain aneurysm but not large enough for surgery History of Any Multi-Drug Resistant Organisms: None Reported Past Surgical History: Joint Replacement, Orthopedic Surgery, Tonsillectomy Additional Past Surgical History / Comment(s): bilateral knee replacement, back surgery with cage placement, right wrist surgery, right hip and leg surgery with steel chey[place] placed, carpal tunnel release bilaterally, PAIN CLINIC PROCEDURES, Back Past Anesthesia/Blood Transfusion Reactions: No Reported Reaction Past Psychological History: Anxiety Smoking Status: Current every day smoker Past Alcohol Use History: None Reported Past Drug Use History: None Reported - Past Family History Mother Family Medical History: Coronary Artery Disease (CAD), Diabetes Mellitus, Deep Vein Thrombosis (DVT) Brother(s) Family Medical History: Deep Vein Thrombosis (DVT) Sister(s) Family Medical History: Deep Vein Thrombosis (DVT) Daughter(s) Family Medical History: Cancer, Deep Vein Thrombosis (DVT) Additional Family Medical History / Comment(s): Brain tumor. General Exam Limitations: no limitations General appearance: alert, in no apparent distress Respiratory exam: Present: normal lung sounds bilaterally. Absent: respiratory distress, wheezes, rales, rhonchi, stridor Cardiovascular Exam: Present: regular rate, normal rhythm, normal heart sounds. Absent: systolic murmur, diastolic murmur, rubs, gallop, clicks Skin exam: Present: other (Patient has a wound VAC attached to a wound located midline lower back. between buttocks. Dressing is clean, dry and secure. ) Course Vital Signs 09/16/23 13:00 Temperature 98.1 F Pulse Rate 111 H Respiratory 18 Rate Blood Pressure 134/71 O2 Sat by Pulse 97 Oximetry Medical Decision Making - Medical Decision Making Was pt. sent in by a medical professional or institution (, [facility], SHAKE OUT WORKER, urgent care, hospital, or group home...) When possible be specific @ -[Yes, on Dr. Palacios. Did you speak to anyone other than the patient for history (EMS, parent, family, police, friend...)? What history was obtained from this source @ -No Did you review nursing and triage notes (agree or disagree)? Why? @ -I reviewed and agree with nursing and triage notes Were old charts reviewed (outside hosp., previous admission, EMS record, old EKG, old radiological studies, urgent care reports/EKG's, group home records)? Report findings @ -No old charts were reviewed Differential Diagnosis (chest pain, altered mental status, abdominal pain women, abdominal pain men, vaginal bleeding, weakness, fever, dyspnea, syncope, headache, dizziness, GI bleed, back pain, seizure, CVA, palpatations, mental health, musculoskeletal)? @ -Wound, infection, surgical incision EKG interpreted by me (3pts min.). @ -As above X-rays interpreted by me (1pt min.). @ -Chest x-ray shows no acute processes. CT interpreted by me (1pt min.). @ -None done U/S interpreted by me (1pt. min.). @ -None done What testing was considered but not performed or refused? (CT, X-rays, U/S, labs)? Why? @ -None What meds were considered but not given or refused? Why? @ -None Did you discuss the management of the patient with other professionals (professionals i.e. [facility] [place], SHAKE OUT WORKER, lab, RT, psych nurse, medical social consultant, scheme technician, teacher, aboriginal liaison officer, housing case manager)? Give summary @ -Yes, I talked to Manjit with Dr. Palacios. They advised routine labs, chest x-ray, EKG and admit. Advised to start IV Kefzol 2g and NPO at midnight. Was smoking cessation discussed for >3mins.? @ -No Was critical care preformed (if so, how long)? @ -No Were there social determinants of health that impacted care today? How? (Homelessness, low income, unemployed, alcoholism, drug addiction, transportation, low edu. Level, literacy, decrease access to med. care, retirement, rehab)? @ -No Was there de-escalation of care discussed even if they declined (Discuss DNR or withdrawal of care, Hospice)? DNR status @ -No What co-morbidities impacted this encounter? (DM, HTN, Smoking, COPD, CAD, Cancer, CVA, ARF, Chemo, Hep., AIDS, mental health diagnosis, sleep apnea, morbid obesity)? @ -None Was patient admitted / discharged? Hospital course, mention meds given and route, prescriptions, significant lab abnormalities, going to OR and other pertinent info. @ -Admitted. Patient is 68-year-old female presented ER sent by Dr. Palacios. Patient was sent here for admission and surgical clearance. Labs, chest XR, and EKG were performed in the ER. EKG showed normal sinus rhythm with no acute T-wave abnormalities. Chest x-ray shows no acute processes. Patient received IV Kefzol, per orthopedics. Patient expressed understanding. Undiagnosed new problem with uncertain prognosis? @ -No Drug Therapy requiring intensive monitoring for toxicity (Heparin, Nitro, Insulin, Cardizem)? @ -No Were any procedures done? @ -No Diagnosis/symptom? @ -Back wound/ Seroma Acute, or Chronic, or Acute on Chronic? @ -Acute Uncomplicated (without systemic symptoms) or Complicated (systemic symptoms)? @ -Uncomplicated Side effects of treatment? @ -No Exacerbation, Progression, or Severe Exacerbation? @ -No Poses a threat to life or bodily function? How? (Chest pain, USA, CA, pneumonia, PE, COPD, DKA, ARF, appy, cholecystitis, CVA, Diverticulitis, Homicidal, Suicidal, threat to staff... and all critical care pts) @ -No - Lab Data Result diagrams: 09/16/23 13:28 09/16/23 13:28 Lab Results 09/16/23 09/16/23 09/16/23 Range/Units 13:28 13:28 13:28 WBC 7.6 (3.8-10.6) k/uL RBC 4.07 (3.80-5.40) m/uL Hgb 12.1 (11.4-16.0) gm/dL Hct 37.4 (34.0-46.0) % MCV 91.9 D (80.0-100.0) fL MCH 29.8 (25.0-35.0) pg MCHC 32.4 (31.0-37.0) g/dL RDW 14.7 (11.5-15.5) % Plt Count 422 D (150-450) k/uL MPV 8.6 Neutrophils % 71 % Lymphocytes % 20 % Monocytes % 5 % Eosinophils % 1 % Basophils % 0 % Neutrophils # 5.4 (1.3-7.7) k/uL Lymphocytes # 1.5 (1.0-4.8) k/uL Monocytes # 0.4 (0-1.0) k/uL Eosinophils # 0.1 (0-0.7) k/uL Basophils # 0.0 (0-0.2) k/uL Hypochromasia Slight PT 11.4 (10.0-12.5) sec INR 1.0 (<1.2) APTT 27.8 (22.0-30.0) sec Sodium 139 (137-145) mmol/L Potassium 4.0 (3.5-5.1) mmol/L Chloride 105 (98-107) mmol/L Carbon Dioxide 22 (22-30) mmol/L Anion Gap 12 mmol/L BUN 13 (7-17) mg/dL Creatinine 0.69 (0.52-1.04) mg/dL Est GFR (CKD-EPI)AfAm >90 (>60 ml/min/1.73 sqM) Est GFR (CKD-EPI)NonAf >90 (>60 ml/min/1.73 sqM) Glucose 128 H (74-99) mg/dL Plasma Lactic Acid Hong (0.7-2.0) mmol/L Calcium 9.9 (8.4-10.2) mg/dL Total Bilirubin 0.7 (0.2-1.3) mg/dL AST 26 (14-36) U/L ALT 15 (4-34) U/L Alkaline Phosphatase 174 H (38-126) U/L Total Protein 7.9 (6.3-8.2) g/dL Albumin 4.0 (3.5-5.0) g/dL 09/16/23 Range/Units 13:28 WBC (3.8-10.6) k/uL RBC (3.80-5.40) m/uL Hgb (11.4-16.0) gm/dL Hct (34.0-46.0) % MCV (80.0-100.0) fL MCH (25.0-35.0) pg MCHC (31.0-37.0) g/dL RDW (11.5-15.5) % Plt Count (150-450) k/uL MPV Neutrophils % % Lymphocytes % % Monocytes % % Eosinophils % % Basophils % % Neutrophils # (1.3-7.7) k/uL Lymphocytes # (1.0-4.8) k/uL Monocytes # (0-1.0) k/uL Eosinophils # (0-0.7) k/uL Basophils # (0-0.2) k/uL Hypochromasia PT (10.0-12.5) sec INR (<1.2) APTT (22.0-30.0) sec Sodium (137-145) mmol/L Potassium (3.5-5.1) mmol/L Chloride (98-107) mmol/L Carbon Dioxide (22-30) mmol/L Anion Gap mmol/L BUN (7-17) mg/dL Creatinine (0.52-1.04) mg/dL Est GFR (CKD-EPI)AfAm (>60 ml/min/1.73 sqM) Est GFR (CKD-EPI)NonAf (>60 ml/min/1.73 sqM) Glucose (74-99) mg/dL Plasma Lactic Acid Hong 2.0 (0.7-2.0) mmol/L Calcium (8.4-10.2) mg/dL Total Bilirubin (0.2-1.3) mg/dL AST (14-36) U/L ALT (4-34) U/L Alkaline Phosphatase (38-126) U/L Total Protein (6.3-8.2) g/dL Albumin (3.5-5.0) g/dL - EKG Data -: EKG Interpreted by In EKG Comments: EKG taken at 14:50. Shows normal sinus rhythm with no acute T-wave abnormalities noted. Ventricular rate 92, AK interval 149, QRS duration 88, QT/QTc 345/395 - Radiology Data Radiology results: report reviewed, image reviewed Disposition Clinical Impression: Seroma, Wound cellulitis after surgery Disposition: ADMITTED IP TO THIS HOSP Condition: Stable Referrals: Eladio Gardner MD [Primary Care Provider] - 1-2 days Decision Time: 15:40
[2023-09-16 14:15] LABS: ALT 15 U/L (4-34); African American GFR (CKD) >90 (>60 ml/min/1.73 sqM); Anion Gap 12 mmol/L; Blood Urea Nitrogen 13 mg/dL (7-17); Calcium 9.9 mg/dL (8.4-10.2); Carbon Dioxide 22 mmol/L (22-30); Chloride 105 mmol/L (98-107); Glucose 128 mg/dL (74-99); Non-African American GFR(CKD) >90 (>60 ml/min/1.73 sqM); Sodium 139 mmol/L (137-145); Total Bilirubin 0.7 mg/dL (0.2-1.3); Total Protein 7.9 g/dL (6.3-8.2)
[2023-09-16 14:16] LABS: Basophils % (A) 0 %; Eosinophils # (A) 0.1 k/uL (0-0.7); Eosinophils % (A) 1 %; HCT 37.4 % (34.0-46.0); HGB 12.1 gm/dL (11.4-16.0); Hypochromasia Slight; Lymphocytes # (A) 1.5 k/uL (1.0-4.8); Lymphocytes % (A) 20 %; MCH 29.8 pg (25.0-35.0); MCHC 32.4 g/dL (31.0-37.0); Mean Platelet Volume 8.6; Monocytes # (A) 0.4 k/uL (0-1.0); Monocytes % (A) 5 %; Neutrophils # (A) 5.4 k/uL (1.3-7.7); Neutrophils % (A) 71 %; Partial Thromboplastin Time 27.8 sec (22.0-30.0); Prothrombin Time 11.4 sec (10.0-12.5); RBC 4.07 m/uL (3.80-5.40); RDW 14.7 % (11.5-15.5); WBC 7.6 k/uL (3.8-10.6)
[2023-09-16 14:17] LABS: MCV 91.9 fL (80.0-100.0); Platelet Count 422 k/uL (150-450)
[2023-09-16 14:30] LABS: AST 26 U/L (14-36); Alkaline Phosphatase 174 U/L (38-126)
[2023-09-16] MEDS ORDERED: HYDROcodone/APAP 10-325MG 1 EACH TAB PO ONE (14:32)
--- NOTE | 2023-09-16 15:06 | XR ---
EXAMINATION TYPE: XR chest 2V DATE OF EXAM: 09/16/2023 COMPARISON: 07/15/2023 TECHNIQUE: PA and lateral views submitted. HISTORY: Infection FINDINGS: The lungs are clear and there is no pneumothorax, pleural effusion, or focal pneumonia. Heart size normal and no overt failure. Postsurgical change overlying the thoracolumbar spine. Limited inspirati on. Hyperinflation compatible COPD. Degenerative changes of the spine. IMPRESSION: 1. No acute process.
[2023-09-16] MEDS ORDERED: ONDANSETRON 4 MG/2 ML VIAL IVP ONE (15:53)
[2023-09-16] MEDS ORDERED: droPERidol 5 MG/2 ML VIAL IVP ONE (15:53)
[2023-09-16] MEDS: CYCLOBENZAPRINE 5 MG TAB PO SCH (18:05)
[2023-09-17] MEDS: PREGABALIN 75 MG CAP PO SCH ×3 (00:44→21:22)
[2023-09-17] MEDS: CYCLOBENZAPRINE 5 MG TAB PO SCH ×4 (00:44→21:21)
[2023-09-17] MEDS: levETIRAcetam 500 MG TAB PO SCH ×3 (00:45→21:21)
--- NOTE | 2023-09-17 07:12 | P.HPOR ---
History of Present Illness H&P Date: 09/16/23 Chief Complaint: non-healing lumbar wound Patient is a 68-year-old female who presented the emergency department today due to nonhealing lumbar wound. Patient had lumbar spine surgery performed on 07/15/[address] Palacios [id number] decompression and fusion and revision decompression fusion from L2-L5. Patient was seen at bedside this afternoon in the ER in the hallway with TLSO brace on. Patient currently has wound vac on. Patient denies any significant weakness in the upper or lower extremities. Patient denies any other issues at this time. Patient denies any saddle anesthesia. Patient denies any headaches. Patient denies chest pain, fever, shortness breath, nausea, vomiting, changes in vision. Past Medical History Past Medical History: Fibromyalgia, Hyperlipidemia, Pulmonary Embolus (PE), Seizure Disorder Additional Past Medical History / Comment(s): possible mini seizures so now on keppra, brain aneurysm but not large enough for surgery History of Any Multi-Drug Resistant Organisms: None Reported Past Surgical History: Joint Replacement, Orthopedic Surgery, Tonsillectomy Additional Past Surgical History / Comment(s): bilateral knee replacement, back surgery with cage placement, right wrist surgery, right hip and leg surgery with steel cheyenne placed, carpal tunnel release bilaterally, PAIN CLINIC PROCEDURES, Back Past Anesthesia/Blood Transfusion Reactions: No Reported Reaction Past Psychological History: Anxiety Smoking Status: Current every day smoker Past Alcohol Use History: None Reported Past Drug Use History: None Reported - Past Family History Mother Family Medical History: Coronary Artery Disease (CAD), Diabetes Mellitus, Deep Vein Thrombosis (DVT) Brother(s) Family Medical History: Deep Vein Thrombosis (DVT) Sister(s) Family Medical History: Deep Vein Thrombosis (DVT) Daughter(s) Family Medical History: Cancer, Deep Vein Thrombosis (DVT) Additional Family Medical History / Comment(s): Brain tumor. Medications and Allergies Home Medications Medication Instructions Recorded Confirmed Type Apixaban [Eliquis] 5 mg PO BID 10/28/22 07/15/23 History Atorvastatin [Lipitor] 10 mg PO HS 10/28/22 07/15/23 History Ergocalciferol [Vitamin D2 (1250 1 cap PO SA 10/28/22 07/15/23 History Mcg = 59647 Iu)] Famotidine 40 mg PO BID 10/28/22 07/15/23 History Pregabalin [Lyrica] 150 mg PO TID 10/28/22 07/15/23 History Topiramate [Topiramate ER] 50 mg PO HS 10/28/22 07/15/23 History levETIRAcetam [Keppra] 500 mg PO BID 10/28/22 07/15/23 History rOPINIRole HCL [Requip] 1 mg PO HS 10/28/22 07/15/23 History rOPINIRole HCL 0.25 mg PO PC-LUNCH 01/21/23 07/15/23 History HYDROcodone/APAP 10-325MG [[place] 1 tab PO TID 04/21/23 07/15/23 History 10-325] Cyclobenzaprine [Flexeril] 5 mg PO TID #21 tablet 07/18/23 Rx HYDROcodone/APAP 10-325MG [[place] 1 - 2 tab PO Q4-6H PRN #32 tab 07/18/23 Rx 10-325] Pregabalin [Lyrica] 150 mg PO TID #21 cap 07/18/23 Rx Sennosides/Docusate Sodium [Senna 1 each PO DAILY #20 cap 07/18/23 Rx Plus 8.6-50 mg Softgel] Sulfamethox-Tmp 400-80Mg [Bactrim 1 tab PO Q12HR 5 Days #10 tablet 07/18/23 Rx SS 400-80 mg] Allergies Allergy/AdvReac Type Severity Reaction Status Date / Time acetaminophen [From Vicodin] Allergy Nausea & Verified 09/16/23 13:03 Vomiting & Diarrhea adhesive tape Allergy Rash/Hives Verified 09/16/23 13:03 amitriptyline Allergy Itching Verified 09/16/23 13:03 diclofenac [From Voltaren] Allergy Rash/Hives Verified 09/16/23 13:03 gabapentin [From Neurontin] Allergy Itching Verified 09/16/23 13:03 hydrocodone [From Vicodin] Allergy Nausea & Verified 09/16/23 13:03 Vomiting & Diarrhea latex Allergy Rash/Hives Verified 09/16/23 13:03 Penicillins Allergy Anaphylaxis Verified 09/16/23 13:03 Physical Examination *exam limited due to patient being in hallway in ER* pending full exam tmrw inspection: Wound VAC present over the lumbar spine. Negative for any open fractures, significant erythema/ecchymosis. Sensation: Equal, symmetric, bilaterally throughout the upper and lower extremities. Range of motion: Intact grossly throughout bilateral upper and lower extremities. Motor: 4/5 in all major motor groups in BUE and BLE Neurovascular: Radial pulses intact, 2+ bilaterally. Cap refill under 3 seconds in digits upper extremities. Special tests: Negative Homans. Negative Naomi bilat. Negative clonus bilat Results - Labs Labs: H & H 09/16/23 Range/Units 13:28 Hgb 12.1 (11.4-16.0) gm/dL Hct 37.4 (34.0-46.0) % Coagulation 09/16/23 Range/Units 13:28 INR 1.0 (<1.2) Result Diagrams: 09/16/23 13:28 Assessment and Plan Assessment: 1. Nonhealing wound low back; history of recent [id number] decompression and fusion Plan: 1. Nonhealing wound low back; history of recent [id number] decompression and fusion - patient does present with nonhealing wound lumbar spine. I did discuss the case with my attending, Dr. Palacios. At this time we are recommending surgical intervention in the form of irrigation debridement and incision and drainage of lumbar spine nonhealing wound. Surgery has been ordered for tomorrow afternoon. Patient to be nothing by mouth starting tonight at midnigh t. CBC and BMP ordered. CRP ordered for evaluation. TLSO brace on while up and about. Weightbearing as tolerated with walker as needed. We'll continue to follow patient during stay in hospital. 2. Appreciate medical management - patient does say medical clearance for surgery. 3. Pain management 4. DVT prophylaxis - with hold thinners at this time 5. GI prophylaxis - senna 6. PT/OT - TLSO brace on while up and about; weightbearing as tolerated with walker 7. Encourage incentive spirometer use Time with Patient: Less than 30
--- NOTE | 2023-09-17 08:04 | P.PN ---
Subjective Progress Note Date: 09/17/23 Principal diagnosis: 1. Nonhealing wound low back; history of recent [id number] decompression and fusion Patient seen at bedside this morning sitting up at the edge of bed with a wound VAC in place. Patient says she was having pain overnight, but controlled with medication. This morning she says she has been up walking around a little bit. Patient is planning for surgery this afternoon for incision and drainage of nonhealing lumbar wound. Patient denies any other issues at this time. Patient denies chest pain, fever, nausea, vomiting, change in vision, loss of bowel/ bladder control Objective - Vital Signs Vital signs: Vital Signs Temp 98.0 F 09/17/23 02:27 Pulse 94 09/17/23 02:27 Resp 19 09/17/23 02:27 BP 104/59 09/17/23 02:27 Pulse Ox 94 L 09/17/23 02:27 FiO2 Intake & Output 09/16/23 09/17/23 09/17/23 18:59 06:59 18:59 Weight 89.811 kg 89.811 kg Other: Voiding Method Toilet # Voids 2 - Exam inspection: Wound VAC present over the lumbar spine. Nonhealing wound present on the inferior portion of the incision. Some drainage present. Negative for any open fractures, significant erythema/ecchymosis. Sensation: Equal, symmetric, bilaterally throughout the upper and lower extremities. Range of motion: Intact grossly throughout bilateral upper and lower extremities. Motor: 4/5 in all major motor groups in BUE and BLE Neurovascular: Radial pulses intact, 2+ bilaterally. Cap refill under 3 seconds in digits upper extremities. Special tests: Negative Homans. Negative Naomi bilat. Negative clonus bilat - Labs CBC & Chem 7: 09/16/23 13:28 09/16/23 13:28 Labs: Abnormal Lab Results - Last 24 Hours (Table) 09/16/23 09/16/23 Range/Units 13:28 14:47 Glucose 128 H (74-99) mg/dL Alkaline Phosphatase 174 H (38-126) U/L C-Reactive Protein 8.2 H (<1.0) mg/dL Assessment and Plan Assessment: 1. Nonhealing wound low back; history of recent [id number] decompression and fusion Plan: 1. Nonhealing wound low back; history of recent [id number] decompression and fusion - patient does present with nonhealing wound lumbar spine. I did discuss the case with my attending, Dr. Palacios. At this time we are recommending surgical intervention in the form of irrigation debridement and incision and drainage of lumbar spine nonhealing wound. Surgery has been ordered for this afternoon. Patient to be nothing by mouth at this time. CBC and BMP ordered. CRP ordered for evaluation. TLSO brace on while up and about. Weightbearing as tolerated with walker as needed. We'll continue to follow patient during stay in hospital. 2. Appreciate medical management - patient does need medical clearance for surgery. 3. Pain management - [place]; Lyrica; Flexeril 4. DVT prophylaxis - with hold thinners at this time 5. GI prophylaxis - senna 6. PT/OT - TLSO brace on while up and about; weightbearing as tolerated with wa lker 7. Encourage incentive spirometer use Time with Patient: Less than 30
[2023-09-17] MEDS: SENNOSIDES 8.6 MG TAB PO SCH (09:05)
[2023-09-17] MEDS: FAMOTIDINE 20 MG TAB PO SCH ×2 (09:05→21:22)
[2023-09-17] MEDS: HYDROcodone/APAP 7.5-325MG 1 EACH TAB PO SCH ×3 (09:05→21:18)
[2023-09-17] MEDS ORDERED: PANTOPRAZOLE 40 MG/10 ML VIAL IVP SCH (13:00)
--- NOTE | 2023-09-17 13:09 | P.CONS ---
History of Present Illness - Reason for Consult Consult date: 09/17/23 Medical management nicotine dependence, seizure disorder, anxiety Requesting physician: Jaret Palacios - Chief Complaint seroma, wound cellulitis, - History of Present Illness This is 68-year-old female admitted with cellulitis, seroma wearing a wound vac in a patient with past medical history significant for low back pain, low extremity weakness, L2-L5 decompression and fusion , recent L5-S1 fusion with T10 pelvis fusion with revision L2-5 fusion, L4-S1 bilateral laminectomy, facetectomy and foraminotomy for decompression ,removal of segmental hardware L2-L5 , referred to the ER by orthopedic surgery. Presents with nonhealing lumbar wound, cellulitis wearing a wound VAC. Denies chest pain, palpitations or shortness of breath. Maintaining O2 sats in the mid to high 90s on room air. Denies lightheadedness dizziness or focal deficits. Denies heada allison. Denies fever chills or night sweats. Afebrile, normal WBC. Hematology, coagulation and chemistry panel is unremarkable with the exception of glucose 128, alk phosphatase 174. Blood cultures obtained,pending. CRP 8.2 Procalcitonin 0.06 . Antibiotics of IV Kefzol initiated in the ER Review of Systems Review of Systems Constitutional: Denied any fatigue denied any fever. Cardio vascular: denied any chest pain, palpitations Gastrointestinal denied any nausea vomiting Pulmonary: Denied any shortness of breath cough Neurologic denied any new focal deficits Past Medical History Past Medical History: Fibromyalgia, Hyperlipidemia, Pulmonary Embolus (PE), Seizure Disorder Additional Past Medical History / Comment(s): possible mini seizures so now on keppra, brain aneurysm but not large enough for surgery History of Any Multi-Drug Resistant Organisms: None Reported Past Surgical History: Joint Replacement, Orthopedic Surgery, Tonsillectomy Additional Past Surgical History / Comment(s): bilateral knee replacement, back surgery with cage placement, right wrist surgery, right hip and leg surgery with steel cheyenne placed, carpal tunnel release bilaterally, PAIN CLINIC PROCEDURES, Back Past Anesthesia/Blood Transfusion Reactions: No Reported Reaction Past Psychological History: Anxiety Smoking Status: Current every day smoker Past Alcohol Use History: None Reported Past Drug Use History: None Reported - Past Family History Mother Family Medical History: Coronary Artery Disease (CAD), Diabetes Mellitus, Deep Vein Thrombosis (DVT) Brother(s) Family Medical History: Deep Vein Thrombosis (DVT) Sister(s) Family Medical History: Deep Vein Thrombosis (DVT) Daughter(s) Family Medical History: Cancer, Deep Vein Thrombosis (DVT) Additional Family Medical History / Comment(s): Brain tumor. Medications and Allergies Home Medications Medication Instructions Recorded Confirmed Type Apixaban [Eliquis] 5 mg PO BID 10/28/22 09/16/23 History Atorvastatin [Lipitor] 10 mg PO HS 10/28/22 09/16/23 History Ergocalciferol [Vitamin D2 (1250 1,250 mcg PO SA 10/28/22 09/16/23 History Mcg = 76687 Iu)] Famotidine 40 mg PO BID 10/28/22 09/16/23 History levETIRAcetam [Keppra] 500 mg PO BID 10/28/22 09/16/23 History rOPINIRole HCL [Requip] 1 mg PO HS 10/28/22 09/16/23 History rOPINIRole HCL 0.25 mg PO PC-LUNCH 01/21/23 09/16/23 History Cyclobenzaprine [Flexeril] 5 mg PO TID #21 tablet 07/18/23 09/16/23 Rx Cephalexin [Keflex] 500 mg PO TID 09/16/23 09/16/23 History HYDROcodone/APAP 7.5-325MG [[place] 1 tab PO TID 09/16/23 09/16/23 History 7.5-325] Pregabalin [Lyrica] 100 mg PO TID 09/16/23 09/16/23 History Sennosides/Docusate Sodium [Senna 1 cap PO DAILY PRN 09/16/23 09/16/23 History Plus 8.6-50 mg Softgel] Topiramate [Topamax] 50 mg PO HS 09/16/23 09/16/23 History Allergies Allergy/AdvReac Type Severity Reaction Status Date / Time acetaminophen [From Vicodin] Allergy Nausea & Verified 09/16/23 15:06 Vomiting & Diarrhea adhesive tape Allergy Rash/Hives Verified 09/16/23 15:06 amitriptyline Allergy Itching Verified 09/16/23 15:06 diclofenac [From Voltaren] Allergy Rash/Hives Verified 09/16/23 15:06 gabapentin [From Neurontin] Allergy Itching Verified 09/16/23 15:06 hydrocodone [From Vicodin] Allergy Nausea & Verified 09/16/23 15:06 Vomiting & Diarrhea latex Allergy Rash/Hives Verified 09/16/23 15:06 Penicillins Allergy Anaphylaxis Verified 09/16/23 15:06 Physical Exam Vitals: Vital Signs Temp Pulse Pulse Resp BP BP Pulse Ox 09/17/23 06:55 98.5 F 79 18 93/52 97 09/17/23 02:27 98.0 F 94 19 104/59 94 L 09/16/23 21:58 97.6 F 86 19 118/63 95 09/16/23 18:08 97.7 F 91 16 98/63 94 L 09/16/23 13:00 98.1 F 111 H 18 134/71 97 Intake and Output 09/16/23 09/17/23 09/17/23 22:59 06:59 14:59 Other: Voiding Method Toilet Toilet # Voids 2 Weight 89.811 kg - Exam PHYSICAL EXAM: VITAL SIGNS: [As above] GENERAL: Alert and oriented 3,laying in bed, no acute distress HEENT: Normocephalic, Conjunctivae normal. eyes normal. NECK: Supple, No JVD. CARDIOVASCULAR: S1, S2 regular. No murmur. RESPIRATION: Unlabored Equal air entry, Breath sounds diminished in the bases. ABDOMEN: Soft, nondistended, minimal,diffuse bilateral upper quadrant tender ness,No guarding. no masses palpable. +BS. LEGS: No edema. no swelling. Wound vac/dressing mid lower back present. NERVOUS SYSTEM: Cranial N 2-12 grossly normal. No focal deficits. Skin: Warm and dry, no rash. Results CBC & Chem 7: 09/16/23 13:28 09/16/23 13:28 Labs: Abnormal Lab Results - Last 24 Hours (Table) 09/16/23 09/16/23 Range/Units 13:28 14:47 Glucose 128 H (74-99) mg/dL Alkaline Phosphatase 174 H (38-126) U/L C-Reactive Protein 8.2 H (<1.0) mg/dL Assessment and Plan Assessment: Wound Cellulitis, seroma in a patient with a nonhealing lumbar wound with wound VAC in a patient with history of Recent [id number] decompression and fusion 07/15/2023, surgical debridement pending. History of L2-L5 decompression and fusion, bilateral lower extremity radiculopathy and weakness Seizure disorder Ongoing nicotine dependence, smoking cessation reinforced History of PE Fibromyalgia Hyperlipidemia Multiple orthopedic surgeries Plan: Continue on current medication regime ,monitoring and symptomatic treatment. Pain management /DVT prophylaxis as per primary. Eliquis remains on hold, patient reports last dose was Friday am. Scheduled for surgical debridement today. Medical clearance given to Orthopedic's GABRIELLE Saravia, this morning in rounds. Aggressive pulmonary toileting with incentive spirometer ordered. Home meds have been resumed accordingly including Keppra for patient's seizure disorder. The impression and plan of care has been dictated as directed. : I performed a history and examination of this patient, discussed the same with the dictator. I agree with the dictator's note ,documented as a scribe. Any additional findings or plans will be noted.
--- NOTE | 2023-09-17 13:57 | P.PN ---
Progress Note - Text Progress Note Date: 09/17/23 Pt s/e. She is doing OK today. at bedside. She has wound vac on low back. This was removed. Two 2mm openings noted at the bottom of the incision in the superior midline. There is no purulence from this area, however there was a decent amount in the wound vac. The remainder of the incision is well healed at this point. We discussed different options for treatment of this issue. MRI shows that there is a fluid collection deep, which could be just seroma or abscess. Her WBC is low, but she has elevated CRP at 8 and ESR. Woud favor washout and wound closure with abx placement and IVABX longer term after. The patient and her agree to this and are comfortable with it. We discussed the risks, benefits, potential outcomes of surgery as outlined inthe risk review below. They are ready and willing to proceed with surgery. Spine Surgery Clinical and Risk Review Joshua Julio is a 68-year-old female presenting for evaluation of low back pain and drainage. It was my pleasure to have seen and examined Joshua Julio. In our visit today we have had a chance to go over subjective complaints, physical examination findings and treatments including the natural course history without intervention and various interventional options. The patients imaging demonstrates Fluid collection in lumbar area On physical exam, Joshua Julio demonstrates wound dehiscences lower back. I have explained to the patient that as their condition progresses it will cause further neurological deficits and eventual paralysis. Based on the patients imaging, physical exam, and the rapid progression and disabling nature of their symptoms, at this time I recommend surgery in the form or a: I&D low back I discussed the risk and benefits of this procedure at length with Joshua Julio. The patient agreed to considered pursuing the procedure abovementioned. Prior to surgery, she should follow up with her PCP (Cardio, ID, IM etc) for clearance. Questions were invited and answered, and the patient wishes to proceed as outlined below. Currently, I am recommendin. incision and drainage with irrigation and debridement low back 2. Follow up with PCP for surgical clearance 3. Review of surgical risks and benefits as well as an educational packet on the proposed surgical procedure. Risks: All surgical procedures come with inherent risks, including those related to positioning, anesthesia, intraoperative findings, and postoperative complications. It is important to understand that surgery does not come with any guarantee of a successful outcome as complications and adverse events are always possible. The patient was given a handout in office today discussing the surgical procedure and risks associated with the intervention, both of which were discussed with the patient. These risks include but are not limited to the following: * Experiencing same, different or even worse symptoms in back, neck, arms, or legs compared to before surgery. * Requiring further surgery or other forms of treatment presently or at some time in the future at same or other levels of the intended spine surgery. * On an extreme but fortunately relatively rare basis severe complication such as blindness, stroke, heart attack, temporary and/or permanent nerve injury, paralysis, coma, or may occur, sometimes without known explanation. * Surgical complications may include but are not limited to risk of infection, fluid accumulation in the surgical dissection site, including a seroma or hematoma, that requires additional surgery, wound drainage, bleeding, new numbness or weakness, vision changes/loss, spinal fluid leakage, non-healing and/or infected incision, headaches, difficulty or inability to swallow, hoarseness, hemopneumothorax, pneumothorax, impotence, retrograde ejaculation, vaginal dryness; injury to nerves, spinal cord, blood vessels, lymphatics or other vital organs (i.e., bowel injury, injury to the great vessels); heterotopic bone formation; complications related to the hardware such as screws, rods, cages including misplaced hardware, device failure, instrumentation at the wrong spine level, hardware fracture/breakage, or hardware loosening; vertebral failure of the spinal column above or below the newly placed hardware; retained surgical instrumentations or devices and the need for further surgery. * Medical risks of the planned spine surgery include but are not limited to generalized Infections to the whole body or local areas outside of the surgical site (sepsis), heart attack, bleeding, anaphylaxis, meningitis, seizure, epilepsy, hearing loss, burn arcos, laceration of the head or other areas of the body, bruising, hypersensitivity of the skin, bladder over distension; allergic reaction; shoulder injury related to positioning; fat, blood and air clots to other areas of the body like heart, lungs, brain; failure of internal organs such as lungs, kidneys, liver and excessive bleeding. If blood transfusions are necessary, note that transfusions may cause intolerance reactions such as anaphylaxis or other complex reactions. * Despite best efforts, the results of spine surgery might not heal in terms of bone, soft tissues such as skin, fascia, ligaments, and joints. Additionally, in order to achieve best possible results, spine surgery may be carried out beyond the initially planned levels and involve decompression, fusion including insertion of hardware at levels other than the original intended area of surgical interest change some portions of the procedure in order to ensure the best possible outcomes. * With spine surgery and spinal fusion, there are different off label uses of instrumentation (devices, implants and hardware) as well as biological substances (bone morphogenic proteins, demineralized bone matrix) as well as using extra bone from allograft sources (i.e. cadaver bone) or autograft (iliac crest bone, ribs, or the spine itself). The patient has been given information about these practices and their inherent risks and benefits. The patient has had a chance to review all the listed information, has been given print outs detailing this information, and has had all his/her questions answered to their satisfaction. It was my pleasure to have seen and examined Joshua Julio. In our visit to day we have had a chance to go over my understanding of our patient's current condition, the natural course history without intervention and various interventional options. Questions were invited and answered, and the patient wishes to proceed as outlined above. I have seen and examined the patient for 25 minutes and we have spent more than 50% of the time in repeat and detailed counseling about the patient's condition, its natural course history with out and as much as can be predicted with surgery and re-review of various surgical treatment options. In conclusion, Joshua Julio and [his/her spouse/partner] requested we proceed with the above suggested surgery and are willing to accept risks and limitations of the suggested surgery as nature of the disease process and our best attempts at treatment for the condition. Thank you again for allowing us to be part of your patient's care. Please don't hesitate to contact me if you have any further questions. Signed and authenticated by: Jaret Alexander [facility] [id number], [address] [address]
[2023-09-17 15:23] VITALS: BMI 34.0
[2023-09-17] MEDS ORDERED: LACTATED RINGERS 1,000 ML IV ONE (15:42)
[2023-09-17] MEDS ORDERED: ONDANSETRON 4 MG/2 ML VIAL ONE (15:44)
[2023-09-17] MEDS ORDERED: ONDANSETRON 4 MG/2 ML VIAL IVP ONE (15:47)
[2023-09-17] MEDS ORDERED: SUCCINYLCHOLINE CHLORIDE 200 MG/10 ML VIAL IV ONE (18:01)
[2023-09-17] MEDS ORDERED: PROPOFOL 10 MG/ML 20 ML VIAL IV ONE (18:01)
[2023-09-17] MEDS ORDERED: fentaNYL (PF) 50 MCG/ML 2 ML AMP ONE (18:01)
[2023-09-17] MEDS ORDERED: LIDOCAINE 1% INJ 10MG/ML (20 ML MDV) ONE (18:01)
[2023-09-17] MEDS ORDERED: SODIUM CHLORIDE 0.9% 50 ML with ceFAZolin 2,000 MG IV ONE ×2 (18:08)
[2023-09-17] MEDS ORDERED: GENTAMICIN 80 MG in SODIUM CHLORIDE 0.9% 100 ML IVPB ONE (18:15)
[2023-09-17] MEDS ORDERED: VANCOMYCIN 1,000 MG VIAL MISCELLANE ONE ×2 (18:38→18:58)
[2023-09-17] MEDS ORDERED: GENTAMICIN 80 MG in SODIUM CHLORIDE 0.9% IRRIGATIO 3,000 ML IRRIGATION ONE (18:40)
[2023-09-17] MEDS ORDERED: ceFAZolin 3,000 MG in SODIUM CHLORIDE 0.9% IRRIGATIO 3,000 ML IRRIGATION ONE (18:40)
[2023-09-17] MEDS ORDERED: SENNOSIDES-DOCUSATE SODIUM 1 EACH TAB PO PRN (19:52)
[2023-09-17] MEDS ORDERED: HYDROmorphone 1 MG/ML 1 ML SYRINGE IVP PRN (19:52)
[2023-09-17] MEDS ORDERED: HYDROmorphone 0.5 MG/0.5 ML SYRINGE IVP PRN (19:52)
[2023-09-17] MEDS ORDERED: MAGNESIUM HYDROXIDE 2,400 MG/30 ML CUP PO PRN (19:52)
[2023-09-17] MEDS: HYDROmorphone 0.5 MG/0.5 ML SYRINGE IVP PRN ×2 (20:01→20:12)
[2023-09-17] MEDS: TOPIRAMATE 25 MG TAB PO SCH (21:22)
[2023-09-17] MEDS: ATORVASTATIN 10 MG TAB PO SCH (21:22)
[2023-09-18] MEDS: ACETAMINOPHEN TAB 325 MG TAB PO SCH ×4 (01:00→17:25)
[2023-09-18 08:01] LABS: African American GFR (CKD) >90 (>60 ml/min/1.73 sqM); Anion Gap 15 mmol/L; Blood Urea Nitrogen 13 mg/dL (7-17); Calcium 9.3 mg/dL (8.4-10.2); Carbon Dioxide 20 mmol/L (22-30); Chloride 107 mmol/L (98-107); Glucose 91 mg/dL (74-99); Non-African American GFR(CKD) 89 (>60 ml/min/1.73 sqM); Sodium 142 mmol/L (137-145)
[2023-09-18] MEDS: HYDROcodone/APAP 7.5-325MG 1 EACH TAB PO SCH ×3 (08:31→22:59)
[2023-09-18] MEDS: CYCLOBENZAPRINE 5 MG TAB PO SCH ×3 (08:31→22:54)
[2023-09-18] MEDS: SENNOSIDES 8.6 MG TAB PO SCH (08:31)
[2023-09-18] MEDS: FAMOTIDINE 20 MG TAB PO SCH ×2 (08:31→21:44)
[2023-09-18] MEDS: levETIRAcetam 500 MG TAB PO SCH ×2 (08:31→21:45)
[2023-09-18] MEDS: PREGABALIN 75 MG CAP PO SCH ×2 (08:31→21:43)
[2023-09-18] MEDS ORDERED: VANCOMYCIN IV PER PHARMACY 1 EACH MISC MISCELLANE PRN (10:55)
[2023-09-18 11:40] LABS: Basophils # (A) 0.05 X 10*3/uL (0.00-0.10); Basophils % (A) 0.5 %; Eosinophils # (A) 0.11 X 10*3/uL (0.04-0.35); HCT 37.7 % (37.2-46.3); HGB 11.9 d/dL (12.0-15.0); Lymphocytes # (A) 1.51 X 10*3/uL (0.90-5.00); Lymphocytes % (A) 13.9 %; MCH 29.5 pg (27.0-32.0); MCHC 31.6 d/dL (32.0-37.0); MCV 93.3 FL (80.0-97.0); Mean Platelet Volume 11.1 FL (9.5-12.2); Monocytes # (A) 1.12 X 10*3/uL (0.20-1.00); Monocytes % (A) 10.3 %; NRBC Per 100 WBC 0 X 10*3/uL (0.00-0.01); Neutrophils # (A) 8.06 X 10*3/uL (1.80-7.70); Neutrophils % (A) 73.8 %; Platelet Count 294 X 10*3/uL (140-440); RBC 4.04 X 10*6/uL (4.10-5.20); RBC Morphology Normal (Normal); RDW 14.6 % (11.5-14.5)
--- NOTE | 2023-09-18 12:50 | P.PN ---
Subjective Progress Note Date: 09/18/23 Principal diagnosis: 1. Nonhealing wound low back; history of recent [id number] decompression and fusion Patient was seen at bedside this morning sitting up in bed. Drain and dressing in place on low back. Patient says she has urinated several times since surgery yesterday. Patient says she has been using her walker when she is gotten up. Patient says her pain has been controlled okay with medication. Patient says she does have increased pain when she does change positions. Patient says the pain in the low back is tolerable when she is resting. Patient denies any r adiation of pain. Patient says she has been using incentive spirometer every hour. Patient denies chest pain, fever, nausea, vomiting, change in vision, loss of bowel/bladder control. Objective - Vital Signs Vital signs: Vital Signs Temp 98.3 F 09/18/23 06:57 Pulse 113 H 09/18/23 08:00 Resp 17 09/18/23 08:00 BP 125/72 09/18/23 06:57 Pulse Ox 96 09/18/23 08:03 FiO2 Intake & Output 09/17/23 09/18/23 09/18/23 18:59 06:59 18:59 Intake Total 852 0 Output Total 200 20 Balance 852 -200 -20 Weight 89.811 kg 89.811 kg Intake: IV 852 0 Output: Drainage 20 Right Lower Back 20 Estimated Blood Loss 200 Other: Voiding Method Toilet Toilet # Voids 1 - Exam inspection: silver foam dressing present over lumbar spine. Some spotting present. Negative for any active drainage. Sutures appear to be well aligned and intact. Drain is in place with 20 mL serosanguineous output in drain overnight. Negative for any open fractures, significant erythema/ecchymosis. Sensation: Equal, symmetric, bilaterally throughout the upper and lower extremities. Palpation: Moderate tenderness to palpation near incision. Nontender to palpation throughout rest of exam. Range of motion: Intact grossly throughout bilateral upper and lower extremities. Motor: 4/5 in all major motor groups in BUE and BLE Neurovascular: Radial pulses intact, 2+ bilaterally. Cap refill under 3 seconds in digits upper extremities. Special tests: Negative Homans. Negative Naomi bilat. Negative clonus bilat - Labs CBC & Chem 7: 09/18/23 06:39 09/18/23 06:31 Labs: Abnormal Lab Results - Last 24 Hours (Table) 09/18/23 09/18/23 Range/Units 06:31 06:39 WBC 10.90 H (4.50-10.00) X 10*3/uL RBC 4.04 L (4.10-5.20) X 10*6/uL Hgb 11.9 L (12.0-15.0) d/dL MCHC 31.6 L (32.0-37.0) d/dL RDW 14.6 H (11.5-14.5) % Neutrophils # 8.06 H (1.80-7.70) X 10*3/uL Monocytes # 1.12 H (0.20-1.00) X 10*3/uL Carbon Dioxide 20 L (22-30) mmol/L Microbiology - Last 24 Hours (Table) 09/17/23 19:01 Gram Stain - Preliminary Back 09/17/23 19:01 Gram Stain - Preliminary Back 09/16/23 15:00 Blood Culture - Preliminary Blood 09/16/23 15:16 Blood Culture - Preliminary Blood Assessment and Plan Assessment: 1. Nonhealing wound low back; history of recent [id number] decompression and fusion - Postop day #1 status post lumbar incision drainage and irrigation and debridement Plan: 1. Nonhealing wound low back; history of recent [id number] decompression and fusion - surgery performed yesterday, 09/17/2023lumbar incision and drainage and irrigation debridement. 20 cc serosanguineous output overnight. We'll maintain draining at this time and plan for drain removal tomorrow. Patient to be weightbearing as tolerated with walker and assistance as necessary. TLSO brace on while up and about. We'll continue to follow patient during stay in hospital. Continue antibiotics. Appreciate medical and ID recommendations. Plan for discharge home tomorrow 2. Appreciate medical and ID management 3. Pain management - [place]; Lyrica; Flexeril 4. DVT prophylaxis - mechanical 5. GI prophylaxis - senna 6. PT/OT - TLSO brace on while up and about; weightbearing as tolerated with w alker 7. Encourage incentive spirometer use 8. Discharge planning - plan for discharge home tomorrow Time with Patient: Less than 30
--- NOTE | 2023-09-18 14:28 | P.PN ---
Subjective Progress Note Date: 09/18/23 - Chief Complaint seroma, wound cellulitis, - History of Present Illness This is 68-year-old female admitted with cellulitis, seroma wearing a wound vac in a patient with past medical history significant for low back pain, low extremity weakness, L2-L5 decompression and fusion , recent L5-S1 fusion with T10 pelvis fusion with revision L2-5 fusion, L4-S1 bilateral laminectomy, facetectomy and foraminotomy for decompression ,removal of segmental hardware L2-L5 , referred to the ER by orthopedic surgery. Presents with nonhealing lumbar wound, cellulitis wearing a wound VAC. Denies chest pain, palpitations or shortness of breath. Maintaining O2 sats in the mid to high 90s on room air. Denies lightheadedness dizziness or focal deficits. Denies headache. Denies fever chills or night sweats. Afebrile, normal WBC. Hematology, coagulation and chemistry panel is unremarkable with the exception of glucose 128, alk phosphatase 174. Blood cultures obtained,pending. CRP 8.2 Procalcitonin 0.06 . Antibiotics of IV Kefzol initiated in the ER 09/18/2023 status post lumbar I & D. Tolerated procedure well. Pain controlled reports good sleep. Minimal tremors related to anesthesia, improving. IS at bedside, reports using every hour. Denies chest pain, palpitations or shortness of breath. Maintaining O2 sats in the high 90s on 3 L nasal cannula. Afebrile, WBC increased to 10.9. Hemoglobin stable, platelets 294. Renal function stable. Objective - Vital Signs Vital signs: Vital Signs Temp 98.3 F 09/18/23 06:57 Pulse 113 H 09/18/23 08:00 Resp 17 09/18/23 08:00 BP 125/72 09/18/23 06:57 Pulse Ox 96 09/18/23 08:03 FiO2 Intake & Output 09/17/23 09/18/23 09/18/23 18:59 06:59 18:59 Intake Total 852 0 Output Total 200 20 Balance 852 -200 -20 Weight 89.811 kg 89.811 kg Intake: IV 852 0 Output: Drainage 20 Right Lower Back 20 Estimated Blood Loss 200 Other: Voiding Method Toilet Toilet # Voids 1 - Exam - Exam PHYSICAL EXAM: VITAL SIGNS: [As above] GENERAL: Alert and oriented 3, sitting up insitting up in bed, no acute di stress HEENT: Normocephalic, Conjunctivae normal. eyes normal. NECK: Supple, No JVD. CARDIOVASCULAR: S1, S2 regular. No murmur. RESPIRATION: Unlabored Equal air entry, Breath sounds diminished in the bases. ABDOMEN: Soft, nondistended, Nontender, No guarding,+BS. LEGS: No edema. no swelling. lumbar dressing present minimal shadowing. NERVOUS SYSTEM: Cranial N 2-12 grossly normal. No focal deficits. Skin: Warm and dry, no rash. - Labs CBC & Chem 7: 09/18/23 06:39 09/18/23 06:31 Labs: Abnormal Lab Results - Last 24 Hours (Table) 09/18/23 09/18/23 Range/Units 06:31 06:39 WBC 10.90 H (4.50-10.00) X 10*3/uL RBC 4.04 L (4.10-5.20) X 10*6/uL Hgb 11.9 L (12.0-15.0) d/dL MCHC 31.6 L (32.0-37.0) d/dL RDW 14.6 H (11.5-14.5) % Neutrophils # 8.06 H (1.80-7.70) X 10*3/uL Monocytes # 1.12 H (0.20-1.00) X 10*3/uL Carbon Dioxide 20 L (22-30) mmol/L Microbiology - Last 24 Hours (Table) 09/17/23 19:01 Gram Stain - Preliminary Back 09/17/23 19:01 Gram Stain - Preliminary Back 09/16/23 15:00 Blood Culture - Preliminary Blood 09/16/23 15:16 Blood Culture - Preliminary Blood Assessment and Plan Assessment: Wound Cellulitis, seroma in a patient with a nonhealing lumbar wound with wound VAC in a patient with history of Recent [id number] decompression and fusion 07/15/2023, surgical debridement pending. Status post lumbar I & D. History of L2-L5 decompression and fusion, bilateral lower extremity radiculopathy and weakness Seizure disorder Ongoing nicotine dependence, smoking cessation reinforced History of PE Fibromyalgia Hyperlipidemia Multiple orthopedic surgeries Plan: Continue on current medication regime ,monitoring and symptomatic treatment. Pain management /DVT prophylaxis as per primary. Aggressive pulmonary toileting with incentive spirometer reinforced. OT/PT evaluation pending. Discharge planning in progress for tomorrow as per orthopedic surgery. The impression and plan of care has been dictated as directed. : I performed a history and examination of this patient, discussed the same with the dictator. I agree with the dictator's note ,documented as a scribe. Any additional findings or plans will be noted.
[2023-09-18] MEDS: VANCOMYCIN 1,500 MG in SODIUM CHLORIDE 0.9% 500 ML 500 ML IVPB SCH (14:52)
[2023-09-18] MEDS: metroNIDAZOLE 500 MG TAB PO SCH ×2 (17:31→22:54)
[2023-09-18] MEDS: TOPIRAMATE 25 MG TAB PO SCH (21:44)
[2023-09-18] MEDS: ATORVASTATIN 10 MG TAB PO SCH (21:45)
--- NOTE | 2023-09-18 22:47 | P.CONS ---
History of Present Illness - Reason for Consult Consult date: 09/18/23 - History of Present Illness Patient is a 68-year-old female with a past medical history negative for fibromyalgia-Hyperlipidemia PE and seizure disorder in this patient who is status post T10 to pelvis decompression fusion and revision decompression fusion from L2-L5 that was completed on 07/15/2023 patient is now presenting to [facility] ER 2 days ago from the surgeon office for admission apparently the patient noticed to have increasing drainage from the lumbar incision concerning for infection patient has been complaining of pain to the lower back area moderate intensity without any radiation and denies having any weakness in the leg and no bowel or bladder problems patient denies high-grade fever did have some chills and no fever have recorded during this hospital stay patient was mildly tachycardic patient did have a white count of 7.6 which is up to 10.90 with a left shift kidney function was normal liver enzymes are normal local question. Currently pending patient did have a culture done on 09/04/2023 that did grew E. coli Klebsiella and Enterococcus faecalis patient is currently on cefazolin infectious disease was consulted for further management of antibiotic therapy Past Medical History Past Medical History: Fibromyalgia, Hyperlipidemia, Pulmonary Embolus (PE), Seizure Disorder Additional Past Medical History / Comment(s): possible mini seizures so now on keppra, brain aneurysm but not large enough for surgery History of Any Multi-Drug Resistant Organisms: None Reported Past Surgical History: Joint Replacement, Orthopedic Surgery, Tonsillectomy Additional Past Surgical History / Comment(s): bilateral knee replacement, back surgery with cage placement, right wrist surgery, right hip and leg surgery with steel [place] placed, carpal tunnel release bilaterally, PAIN CLINIC PROCEDURES, Back Past Anesthesia/Blood Transfusion Reactions: No Reported Reaction Past Psychological History: Anxiety Smoking Status: Current every day smoker Past Alcohol Use History: None Reported Past Drug Use History: None Reported - Past Family History Mother Family Medical History: Coronary Artery Disease (CAD), Diabetes Mellitus, Deep Vein Thrombosis (DVT) Brother(s) Family Medical History: Deep Vein Thrombosis (DVT) Sister(s) Family Medical History: Deep Vein Thrombosis (DVT) Daughter(s) Family Medical History: Cancer, Deep Vein Thrombosis (DVT) Additional Family Medical History / Comment(s): Brain tumor. Medications and Allergies Home Medications Medication Instructions Recorded Confirmed Type Apixaban [Eliquis] 5 mg PO BID 10/28/22 09/16/23 History Atorvastatin [Lipitor] 10 mg PO HS 10/28/22 09/16/23 History Ergocalciferol [Vitamin D2 (1250 1,250 mcg PO SA 10/28/22 09/16/23 History Mcg = 28431 Iu)] Famotidine 40 mg PO BID 10/28/22 09/16/23 History levETIRAcetam [Keppra] 500 mg PO BID 10/28/22 09/16/23 History rOPINIRole HCL [Requip] 1 mg PO HS 10/28/22 09/16/23 History rOPINIRole HCL 0.25 mg PO PC-LUNCH 01/21/23 09/16/23 History Cyclobenzaprine [Flexeril] 5 mg PO TID #21 tablet 07/18/23 09/16/23 Rx Cephalexin [Keflex] 500 mg PO TID 09/16/23 09/16/23 History HYDROcodone/APAP 7.5-325MG [[place] 1 tab PO TID 09/16/23 09/16/23 History 7.5-325] Pregabalin [Lyrica] 100 mg PO TID 09/16/23 09/16/23 History Sennosides/Docusate Sodium [Senna 1 cap PO DAILY PRN 09/16/23 09/16/23 History Plus 8.6-50 mg Softgel] Topiramate [Topamax] 50 mg PO HS 09/16/23 09/16/23 History Cyclobenzaprine [Flexeril] 5 mg PO TID #21 tablet 09/19/23 Rx HYDROcodone/APAP 7.5-325MG [[place] 1 tab PO TID #24 tab 09/19/23 Rx 7.5-325] Pregabalin [Lyrica] 100 mg PO TID #21 cap 09/19/23 Rx Sennosides/Docusate Sodium [Senna 1 each PO DAILY #20 capsule 09/19/23 Rx Plus 8.6-50 mg Softgel] Allergies Allergy/AdvReac Type Severity Reaction Status Date / Time acetaminophen [From Vicodin] Allergy Nausea & Verified 09/17/23 15:41 Vomiting & Diarrhea adhesive tape Allergy Rash/Hives Verified 09/17/23 15:41 amitriptyline Allergy Itching Verified 09/17/23 15:41 diclofenac [From Voltaren] Allergy Rash/Hives Verified 09/17/23 15:41 gabapentin [From Neurontin] Allergy Itching Verified 09/17/23 15:41 hydrocodone [From Vicodin] Allergy Nausea & Verified 09/17/23 15:41 Vomiting & Diarrhea latex Allergy Rash/Hives Verified 09/17/23 15:41 Penicillins Allergy Anaphylaxis Verified 09/17/23 15:41 Physical Exam Vitals: Vital Signs Temp Pulse Pulse Pulse Resp BP Pulse Ox 09/18/23 08:03 96 09/18/23 08:00 113 H 17 09/18/23 06:57 98.3 F 113 H 17 125/72 90 L 09/18/23 02:12 97.5 F L 88 18 100/67 96 09/17/23 23:15 80 99/65 97 09/17/23 23:00 84 94/49 96 09/17/23 22:45 82 85/37 95 09/17/23 22:30 83 96/49 95 09/17/23 22:15 88 106/64 90 L 09/17/23 22:00 89 100/68 93 L 09/17/23 21:45 85 92/51 95 09/17/23 21:30 87 102/57 95 09/17/23 21:15 86 112/50 96 09/17/23 21:00 85 18 97/52 90 L 09/17/23 20:30 91 15 103/43 93 L 09/17/23 20:15 84 12 117/49 97 09/17/23 20:14 87 16 135/61 96 09/17/23 19:57 97.3 F L 83 18 114/66 97 09/17/23 15:25 98.0 F 73 16 90/51 98 09/17/23 14:19 98.2 F 73 18 83/45 92 L Intake and Output 09/17/23 09/18/23 09/18/23 22:59 06:59 14:59 Intake Total 852 Output Total 200 20 Balance 652 -20 Intake: IV 852 Output: Drainage 20 Right Lower Back 20 Estimated Blood Loss 200 Other: Voiding Method Toilet # Voids 1 Weight 89.811 kg Results CBC & Chem 7: 09/19/23 11:02 09/18/23 06:31 Labs: Abnormal Lab Results - Last 24 Hours (Table) 09/18/23 Range/Units 06:31 Carbon Dioxide 20 L (22-30) mmol/L Microbiology - Last 24 Hours (Table) 09/17/23 19:01 Gram Stain - Preliminary Back 09/17/23 19:01 Gram Stain - Preliminary Back 09/16/23 15:00 Blood Culture - Preliminary Blood 09/16/23 15:16 Blood Culture - Preliminary Blood Assessment and Plan Plan: 1patient presented to hospital with concern for infection to the lumbar spine incision area in this patient who did have extensive surgery with T10 to pelvis decompression fusion and revision that was done on 07/15/2023 patient did have a cultures in the [facility] system on 09/04/2023 that did grow E. coli Klebsiella Enterococcus faecalis and anaerobes, patient is not very clear if she was on antibiotic and which type 2-patient with a penicillin allergy therapy limit the number of antibiotics safe to use 3-discontinue cefazolin 4-we will start the patient on vancomycin Rocephin and Flagyl directed towards recent culture, await for surgical exploration debridement and deep cultures with the discharge antibiotic on the basis of deep cultures We will follow on clinical condition and cultures to further adjust medication if needed Thank you for this consultation we will follow the patient along with you Dictation was produced using [employer] dictation software. please excuse any grammatical, word or spelling errors. Time with Patient: Greater than 30
[2023-09-19] MEDS: VANCOMYCIN 1,500 MG in SODIUM CHLORIDE 0.9% 500 ML 500 ML IVPB SCH ×2 (01:07→12:34)
[2023-09-19] MEDS: ACETAMINOPHEN TAB 325 MG TAB PO SCH ×4 (01:12→17:05)
[2023-09-19 01:49] LABS: Glucose,Whole Blood 128 mg/dL (70-110)
[2023-09-19] MEDS ORDERED: LIDOCAINE 2% (PF) 20 MG/ML 5 ML VIAL SQ ONE (08:21)
--- NOTE | 2023-09-19 08:31 | P.OP ---
Date of Procedure: 09/19/23 Description of Procedure: Preoperative Diagnosis: Need for long-term IV antibiotic access. Postoperative Diagnosis: Same. Procedure(s) Performed: Ultrasound-guided cannulation left basilic vein. Insertion of peripherally inserted central catheter under fluoroscopic guidance. Anesthesia: local 1% lidocaine charline Surgeon: Dina Estimated Blood Loss (ml): 5 IV fluids (ml): 0 Urine output (ml): 0 Pathology: none sent Condition: stable Disposition: no change Indications for Procedure: Patient requires long-term IV antibiotics as an outpatient patient is offered a PICC line to allow for intravenous administration of antibiotics. Description of Procedure: Patient was brought to the special procedure suite. The left upper extremity sterilely prepped and draped in usual manner. Ultrasound was utilized to identify the basilic vein which was normally compressible free of visible thrombus. Permenant image was stored. 1% Xylocaine was utilized for local anesthesia tissues overlying the vein. Through this anesthetized area and with the aid of ultrasound a micropuncture needle was utilized to cannulate the vein. Once cannulated, Softip guidewire was advanced into the vein. The needle was withdrawn and a micropuncture sheath and dilator advanced over the guidewire. The guidewire was withdrawn and exchanged for the PICC guidewire and measured 44 cm to the cavoatrial junction. The catheter was cut to size and advanced into the cavoatrial junction without resistance. The sheath was peeled away. There was mild difficult the and withdrawal blood and aspirated well, was pulled back approximately 1 cm and it aspirated and flushed without difficulty. the catheter was then flushed with heparinized saline solution and secured to the skin. Patient tolerated procedure well and was returned to their room in satisfactory and stable condition.
--- NOTE | 2023-09-19 09:11 | IR ---
PICC LINE PLACEMENT: HISTORY: Infection requiring long-term antibiotic therapy PROCEDURE: Ultrasound and fluoroscopic guidance of PICC line placement. COMPLICATIONS: None ANESTHESIA: 1. 1% Lidocaine locally. FINDINGS/TECHNIQUE: The procedure was explained to the patient. The risks, complications, benefits and alternatives were discussed and any questions were answered. Informed consent was obtained. The patient was placed supine on the fluoroscopic table and prepped and draped in the usual sterile fash ion. Utilizing a 21 gauge needle and sonographic and fluoroscopic guidance, access in the left basi lic vein was achieved and there is placement of a 0.018 guidewire. The vein is patent. A 4-F sheath was placed over the guidewire. The guidewire and dilator were removed and a 4-F. PICC line was plac ed through the sheath with the tip at the level of the SVC. The sheath was removed, the catheter was flushed and sutured into position. The patient was stable throughout the procedure and remained sta ble upon discharge from the Department of Radiology. The vein puncture was patent under ultrasound. A georges scale image was obtained to document patency of the vein punctured. All elements of the maximal barrier technique were utilized. FLUOROSCOPY TIME: DAP 0.3166Gy cm2 IMPRESSION: Successful PICC line placement under ultrasound and fluoroscopic guidance.
[2023-09-19] MEDS: SENNOSIDES 8.6 MG TAB PO SCH (10:11)
[2023-09-19] MEDS: levETIRAcetam 500 MG TAB PO SCH ×2 (10:11→22:02)
[2023-09-19] MEDS: metroNIDAZOLE 500 MG TAB PO SCH ×3 (10:11→22:02)
[2023-09-19] MEDS: HYDROcodone/APAP 7.5-325MG 1 EACH TAB PO SCH ×3 (10:12→22:03)
[2023-09-19] MEDS: FAMOTIDINE 20 MG TAB PO SCH ×2 (10:12→22:02)
[2023-09-19] MEDS: CYCLOBENZAPRINE 5 MG TAB PO SCH ×3 (10:12→22:02)
[2023-09-19] MEDS: PREGABALIN 75 MG CAP PO SCH ×2 (10:12→22:02)
[2023-09-19] MEDS ORDERED: DEXTROSE 50% SYRINGE 50 ML IVP PRN ×2 (10:57)
--- NOTE | 2023-09-19 11:10 | P.PN ---
Subjective Progress Note Date: 09/19/23 - Chief Complaint seroma, wound cellulitis, - History of Present Illness This is 68-year-old female admitted with cellulitis, seroma wearing a wound vac in a patient with past medical history significant for low back pain, low extremity weakness, L2-L5 decompression and fusion , recent L5-S1 fusion with T10 pelvis fusion with revision L2-5 fusion, L4-S1 bilateral laminectomy, facetectomy and foraminotomy for decompression ,removal of segmental hardware L2-L5 , referred to the ER by orthopedic surgery. Presents with nonhealing lumbar wound, cellulitis wearing a wound VAC. Denies chest pain, palpitations or shortness of breath. Maintaining O2 sats in the mid to high 90s on room air. Denies lightheadedness dizziness or focal deficits. Denies headache. Denies fever chills or night sweats. Afebrile, normal WBC. Hematology, coagulation and chemistry panel is unremarkable with the exception of glucose 128, alk phosphatase 174. Blood cultures obtained,pending. CRP 8.2 Procalcitonin 0.06 . Antibiotics of IV Kefzol initiated in the ER 09/18/2023 status post lumbar I & D. Tolerated procedure well. Pain controlled reports good sleep. Minimal tremors related to anesthesia, improving. IS at bedside, reports using every hour. Denies chest pain, palpitations or shortness of breath. Maintaining O2 sats in the high 90s on 3 L nasal cannula. Afebrile, WBC increased to 10.9. Hemoglobin stable, platelets 294. Renal function stable. 09/19/2023 maintained on IV antibiotics of vancomycin, Rocephin and Flagyl, as per ID, cultures pending/preliminary aerobic wound culture reporting gram- negative bacilli. T-max 100.5, CBC pending. Renal function stable. Glucose 128, insulin sliding scale initiated. Pain controlled. Passing flatus. Maintaining O2 sats in the mid 90s on room air. Tachycardia resolved earlier th is morning. Blood pressures soft. Denies chest pain, palpitations or shortness of breath. Objective - Vital Signs Vital signs: Vital Signs Temp 100.5 F H 09/19/23 06:57 Pulse 89 09/19/23 06:57 Resp 17 09/19/23 06:57 BP 91/50 09/19/23 06:57 Pulse Ox 96 09/19/23 08:40 FiO2 Intake & Output 09/18/23 09/19/23 09/19/23 18:59 06:59 18:59 Output Total 20 Balance -20 Output: Drainage 20 Right Lower Back 20 Other: Voiding Method Toilet Toilet # Voids 3 - Exam - Exam PHYSICAL EXAM: VITAL SIGNS: [As above] GENERAL: Alert and oriented 3, laying in bed, no acute distress HEENT: Normocephalic, Conjunctivae normal. eyes normal. NECK: Supple, No JVD. CARDIOVASCULAR: S1, S2 regular. No murmur. RESPIRATION: Unlabored Equal air entry, Breath sounds diminished in the bases. ABDOMEN: Soft, nondistended, Nontender, No guarding,+BS. LEGS: No edema. no swelling. lumbar dressing present minimal shadowing. NERVOUS SYSTEM: Cranial N 2-12 grossly normal. No focal deficits. Skin: Warm and dry, no rash. Microbiology 09/16/23 15:00 Blood Blood Culture - Preliminary 09/16/23 15:16 Blood Blood Culture - Preliminary 09/17/23 19:01 Back Gram Stain - Preliminary 09/17/23 19:01 Back Wound Culture - Preliminary Gram Neg Bacilli 09/17/23 19:01 Back Gram Stain - Preliminary 09/17/23 19:01 Back Wound Culture - Preliminary - Labs CBC & Chem 7: 09/18/23 06:39 09/18/23 06:31 Labs: Abnormal Lab Results - Last 24 Hours (Table) 09/18/23 09/19/23 Range/Units 06:39 01:41 WBC 10.90 H (4.50-10.00) X 10*3/uL RBC 4.04 L (4.10-5.20) X 10*6/uL Hgb 11.9 L (12.0-15.0) d/dL MCHC 31.6 L (32.0-37.0) d/dL RDW 14.6 H (11.5-14.5) % Neutrophils # 8.06 H (1.80-7.70) X 10*3/uL Monocytes # 1.12 H (0.20-1.00) X 10*3/uL POC Glucose (mg/dL) 128 H (70-110) mg/dL Microbiology - Last 24 Hours (Table) 09/16/23 15:00 Blood Culture - Preliminary Blood 09/16/23 15:16 Blood Culture - Preliminary Blood 09/17/23 19:01 Gram Stain - Preliminary Back Wound Culture - Preliminary Gram Neg Bacilli 09/17/23 19:01 Gram Stain - Preliminary Back Wound Culture - Preliminary Assessment and Plan Assessment: Wound Cellulitis, seroma in a patient with a nonhealing lumbar wound with wound VAC in a patient with history of Recent [id number] decompression and fusion 07/15/2023, surgical debridement pending. Status post lumbar I & D. Cultures pending. History of L2-L5 decompression and fusion, bilateral lower extremity radiculopathy and weakness Seizure disorder Ongoing nicotine dependence, smoking cessation reinforced History of PE Fibromyalgia Hyperlipidemia Multiple orthopedic surgeries Plan: Continue on current medication regime ,monitoring and symptomatic treatment. Insulin sliding scale initiated, hemoglobin A1c ordered. CBC pending .Wound/blood cultures in progress .Antibiotics as per ID . Maintain aggressive pulmonary toileting with incentive spirometer reinforced. The impression and plan of care has been dictated as directed. : I performed a history and examination of this patient, discussed the same with the dictator. I agree with the dictator's note ,documented as a scribe. Any additional findings or plans will be noted.
[2023-09-19 11:25] LABS: HCT 33.3 % (34.0-46.0); HGB 10.9 gm/dL (11.4-16.0); Hypochromasia Slight; MCH 30.3 pg (25.0-35.0); MCHC 32.7 g/dL (31.0-37.0); MCV 92.7 fL (80.0-100.0); Mean Platelet Volume 8.1; Platelet Count 272 k/uL (150-450); RBC 3.59 m/uL (3.80-5.40); WBC 13.4 k/uL (3.8-10.6)
[2023-09-19 11:30] LABS: Glucose,Whole Blood 80 mg/dL (70-110)
[2023-09-19] MEDS: INSULIN ASPART (NovoLOG) 100 UNIT/ML VIAL SQ SCH ×3 (11:42→22:00)
--- NOTE | 2023-09-19 13:39 | P.DS ---
Providers Date of admission: 09/16/23 15:22 Expected date of discharge: 09/19/23 Attending physician: Jaret Palacios DO Consults: 09/16/23 14:18 Consult Physician Urgent Consulting Provider: Eladio Gardner Consult Reason/Comments: Medical management/surgical clearance Do you want consulting provider notified?: Yes 09/17/23 18:17 Consult Physician Routine Consulting Provider: Maria M Lazo Consult Reason/Comments: ID management - non-healing lumbar spine wound Do you want consulting provider notified?: Yes Primary care physician: Eladio Gardner MD Hospital Course: Date of admission: 09/16/2023 Date of discharge: 09/19/2023 Admission diagnosis: Nonhealing lumbar wound Discharge diagnosis: Same Attending physician: Dr. Palacios Surgical procedures: Lumbar I&D Brief history: Patient is a 68 year old female with a history of nonhealing lumbar wound. At this point patient has failed conservative treatment measures and has opted to proceed with a elective lumbar I&D. Hospital course: Details of patient's surgery can be found in operative report. Patient tolerated the procedure well and was subsequently transported to orthopedic floor. Patient's orthopeidc and medical care was provided daily. Patient had daily laboratory tests performed for evaluation of overall blood counts. Patient had daily physical therapy to include strengthening range of motion as well as education with walker ambulation. Patient was noted to have a relatively uneventful postoperative course. Patient reported satisfactory pain control with oral pain medications by postoperative day 2. Patient showed satisfactory progress with physical therapy. Patient moved steadily through the program and had no difficulty meeting the goals by postoperative day 2. Given patient's otherwise satisfactory course and having met physical therapy goals, plan is to discharge patient to rehab on postoperative day 2. Discharge condition/disposition: Patient will be discharged to rehab in stable condition. Discharge medications: Instructions are given on resumption of patient's normal daily medications per primary care recommendation, in addition patient will be prescribed [place]; Lyrica; senna; Flexeril. Spine Discharge and Recovery Instructions Date of Surgery: 09/17/2023 Diagnosis: Nonhealing lumbar wound Procedure: Lumbar I&D Medications: See medication list All medication refills should be obtained through your primary care doctor or your clinic spine surgeon. Please discuss prescription refills at your follow up appointment. Do not call the hospital for medication refills. Dressing: Leave your dressing in place for a total of 5 days post operatively. Then you may remove your dressing and leave open to air. Keep the area clean and if not able to keep area clean, then cover with sterile gauze and tape. Showering: You may shower 3 days after your procedure allowing soap and water to run over incision. Do not scrub. Do not soak. Blot dry. Follow up: Please confirm a follow up appointment with your surgeon 3 weeks post operatively. Please make an appointment to follow up with your PCP in 1-2 weeks after surgery for evaluation 3 phase, 3-week plan POST OP WEEKS 1-3 1. Lifting/carrying/pushing/pulling limited to less than 5 pounds. 2. Do not sit for longer than 15 minutes at one time. Get up and walk around. Prolonged sitting is NOT advised. If you lay down, see if you can tolerate laying down on you front (belly side) 3. Walk for periods of 15 minutes = 1 mile but no longer; do it multiple times times each day. 4. Ice your low back after activity. POST OP WEEKS 3-6 1. Lifting limited to less than 20 pounds. 2. Do not sit for longer than 30 minutes at a time. Frequently change positions. Use a sit-to stand workstation or take frequent breaks from sitting if you have returned to work. 3. Walk for 30 minutes each day. If possible, do these three or more times a day POST OP WEEKS 6+ At your 6-week appointment we will give you a physical therapy referral to focus on a core stabilization and strengthening program. You should also work on leg & buttock strengthening, hamstring & quadriceps stretching, and continue a low impact aerobic activity program such as swimming, walking, or riding a stationary bicycle. During the initial 6 weeks after your surgery, you are at the highest risk of re-injuring your spine. You should generally avoid BLTs (bending, lifting and twisting combination motions) and follow the above guidelines to reduce the chance of reinjury. You can anticipate post op appointments in our office at approximately 3 weeks and 6 weeks after your surgery. INCISION CARE: If your incision is not draining you do NOT need to cover it with a dressing. Keep your incision clean, dry and intact. In most cases, we apply skin glue, ephraim or sutures to the incision at the time of surgery. This will be like a crust or have the appearance of a scab and will fall off in time on its own. The stitches or ephraim need to be removed at 3 weeks post op appointment. You may begin to shower 3 days after surgery (this allows the glue to hendrickson well). However, please avoid scrubbing the incision site or peeling off any of the skin glue. This will ensure optimal healing of your incision. Also, during this time avoid soaking the incision area in water - this includes swimming pools, hot tubs or baths. No ointments, lotions or oils on the incision until your surgeon allows. Leave ephraim, sutures or glue in place. Neurological dysfunction that comes on suddenly can also be a sign of a stroke. Below some common symptoms of a stroke are listed: B - balance difficulty such as sudden onset walking or leaning to one side - NEW E - eye problem such as sudden double vision or trouble seeing on one side - NEW F - Facial weakness or numbness on one side - NEW A - Arm or leg weakness or numbness on one side - NEW S - Slurred speech or difficulty with word finding - NEW T - Time is BRAIN! Call 911 as soon as you recognize these symptoms Diet: Consume a regular diet rich in vegetables and lean protein such as chicken or fish. You should consume in a ratio of approximately 20% fats|40% carbohydrates|40%protein. Vegetables, sweet potatoes, brown rice or quinoa are examples of good carbohydrates. Chips, white bread, cookies and sweets/sugar are examples of bad carbohydrates. Limit your bad carbs, go wild with good carbs. "Life's Simple 7" Guidelines as per [place] [employer] These will help you reclaim your life after surgery and helper electrical in your recovery, keeping in mind your restrictions. (1) Get Active. Physical activity can help people lose weight, control high blood pressure and cholesterol, feel emotionally better, and sleep better. (2) Control Cholesterol. Avoid a diet high in saturated fat, trans fat, & cholesterol. Limit whole milk & cream, ice cream, butter, egg yolks, processed meats (like sausage and hot dogs), and fatty meats. Choose healthy foods that are low in saturated fat, trans fat and cholesterol which include: Fruits and vegetables, fiber rich grain products (like whole grain pasta and brown rice), lean meat such as chicken, fish, nuts, seeds, and legumes. (3) Eat Better. Eat small portions. Shop at the grocery with a list and do not stray from it. Tips for a healthy diet include: Limit sodium intake to less than 1500mg daily, avoid prepackaged, processed, and fast foods, choose a diet rich in fruits, vegetables, and whole grain, high fiber foods, and limit saturated & cholesterol in your diet. (4) Manage Blood Pressure. If you have high blood pressure, you should have a cuff at home so that you can check your blood pressure regularly. Be sure you have a good cuff. An arm one is generally better than a wrist one. Bring the cuff to a doctor's appointment to validate that the measurements that your cuff are taking are accurate. Take your blood pressure twice daily when you are sitting down and relaxing. Record the numbers in a log and bring this log with you to your doctors' appointments. (5) Lose Weight if your BMI is above 25. A healthy BMI is between 19-25. To calculate Your BMI, you may use a Standard BMI Calculator on the NIH BMI website: <www.nhlbi.nih.gov/guidelines/obesity/BMI/bmicalc.htm>. Weigh oneself daily. If you are overweight, set a goal to lose weight. A pound a week loss if needed is a good target. (6) Reduce Blood Sugar. Limit foods and liquids with "added sugars." (Added sugars include sucrose, fructose, glucose, maltose, dextrose, high fructose corn syrup, corn syrup, concentrated fruit juice and honey). (7) Stop Smoking. If you smoke, quitting smoking is one of the best things that you can do for your health. Smoking increases your risk of heart attack, stroke, and peripheral vascular disease, which is a build-up of plaque in your arteries. Please discard all the cigarettes and lighters in your house. Have a plan for what you will do when you have the urge to smoke. Direct and second- hand smoke shortens your life as well as the lives of your family, friends and others around you. For your health and the health of those around you, please consider quitting! Proper Bending Body Mechanics: Maintain a wide stance with one foot slightly in front of the other. Keep your back straight. Bend utilizing the strength in your hips and knees. Do not bend at the waist. Maintain the lifted object at your waist-level close to your body. Avoid lifting weight that causes immediately pain or pain anywhere in the body afterwards. Smoking/Nicotine If there was ever one thing that you could do to increase your overall health, decrease your risk of cardiovascular problems by about 39% the second you make the choice, it is to STOP SMOKING. Your body's most instant gratification is the second you stop smoking. We have all heard the studies, read the articles but it is true, smoking is extremely bad for your overall health, and moreover it is detrimental to your bone health. Nicotine, IN ANY FORM, kills bone cells, prevents your body from healing fractures, and significantly prolongs healing after surgery. In spine surgery specifically, it increases your risk of not healing your bones to create a fus ion and increases your risk of having a revision surgery due to this up to 60%. I know it is hard. I know it feels impossible. But there are ways. Take control of your life. We are here to help you through it. And when you are ready, ask us and we can direct you to help if you desire. Use the START Plan to Quit Smoking (please visit the Helpguide.org website listed below for more information): S = Set a quit date. Choose a date within the next 2 weeks, so you have enough time to prepare without losing your motivation to quit. If you mainly smoke at work, quit on the weekend, so you have a few days to adjust to the change. T = Tell family, friends, and co-workers that you plan to quit. Let your friends and family in on your plan to quit smoking and tell them you need their support and encouragement to stop. Look for a quit francis who wants to stop smoking as well. You can help each other get through the rough times. A = Anticipate and plan for the challenges you'll face while quitting. Most people who begin smoking again do so within the first 3 months. You can help yourself make it through by preparing ahead for common challenges, such as nicotine withdrawal and cigarette cravings. R = Remove cigarettes and other tobacco products from your home, car, and work. Throw away all your cigarettes (no emergency pack!), lighters, ashtrays, and matches. Wash your clothes and freshen up anything that smells like smoke. Shampoo your car, clean your drapes and carpet, and steam your furniture. T = Talk to your doctor about getting help to quit. Your doctor can prescribe medication to help with withdrawal and suggest other alternatives. If you can't see a doctor, you can get many products over the counter at your local pharmacy or grocery store, including the nicotine patch, nicotine lozenges, and nicotine gum. Resources for Quitting Smoking: <https://www.[place].gov/documents/[facility]/Quit_Tobacco_Resources_for_patients_31 3480_7.pdf> Supplementation: Take recommended dosages of Vitamin D and Calcium to help fortify your bones and help them to heal. See your health maintenance packet for dosages and recommend ed levels. DVT/VTE prophylaxis: You will be given compression stockings from the hospital. Wear these daily for the first two weeks after surgery. You may take them off at night. You may be prescribed a medication to help thin your blood. Take this as directed. If you are not prescribed this medication, early and frequent ambulation has been shown to be the best prophylaxis to deep vein thrombosis and sequelae related to this event. Assessment: Nonhealing lumbar wound Procedures: Lumbar I&D Patient Condition at Discharge: Stable Plan - Discharge Summary Discharge Rx Participant: Yes New Discharge Prescriptions: New Pregabalin [Lyrica] 100 mg PO TID #21 cap Cyclobenzaprine [Flexeril] 5 mg PO TID #21 tablet Sennosides/Docusate Sodium [Senna Plus 8.6-50 mg Softgel] 1 each PO DAILY #20 capsule HYDROcodone/APAP 7.5-325MG [[place]fields 7.5-325] 1 tab PO TID #24 tab No Action Famotidine 40 mg PO BID rOPINIRole HCL 0.25 mg PO PC-LUNCH Cyclobenzaprine [Flexeril] 5 mg PO TID #21 tablet Pregabalin [Lyrica] 100 mg PO TID levETIRAcetam [Keppra] 500 mg PO BID Ergocalciferol [Vitamin D2 (1250 Mcg = 54364 Iu)] 1,250 mcg PO SA rOPINIRole HCL [Requip] 1 mg PO HS Atorvastatin [Lipitor] 10 mg PO HS Apixaban [Eliquis] 5 mg PO BID HYDROcodone/APAP 7.5-325MG [[place] 7.5-325] 1 tab PO TID Cephalexin [Keflex] 500 mg PO TID Topiramate [Topamax] 50 mg PO HS Sennosides/Docusate Sodium [Senna Plus 8.6-50 mg Softgel] 1 cap PO DAILY PRN PRN Reason: Constipation Discharge Medication List Apixaban [Eliquis] 5 mg PO BID 10/28/22 [History] Atorvastatin [Lipitor] 10 mg PO HS 10/28/22 [History] Ergocalciferol [Vitamin D2 (1250 Mcg = 58007 Iu)] 1,250 mcg PO SA 10/28/22 [History] Famotidine 40 mg PO BID 10/28/22 [History] levETIRAcetam [Keppra] 500 mg PO BID 10/28/22 [History] rOPINIRole HCL [Requip] 1 mg PO HS 10/28/22 [History] rOPINIRole HCL 0.25 mg PO PC-LUNCH 01/21/23 [History] Cyclobenzaprine [Flexeril] 5 mg PO TID #21 tablet 07/18/23 [Rx] Cephalexin [Keflex] 500 mg PO TID 09/16/23 [History] HYDROcodone/APAP 7.5-325MG [[place] 7.5-325] 1 tab PO TID 09/16/23 [History] Pregabalin [Lyrica] 100 mg PO TID 09/16/23 [History] Sennosides/Docusate Sodium [Senna Plus 8.6-50 mg Softgel] 1 cap PO DAILY PRN 09/16/23 [History] Topiramate [Topamax] 50 mg PO HS 09/16/23 [History] Cyclobenzaprine [Flexeril] 5 mg PO TID #21 tablet 09/19/23 [Rx] HYDROcodone/APAP 7.5-325MG [[place] 7.5-325] 1 tab PO TID #24 tab 09/19/23 [Rx] Pregabalin [Lyrica] 100 mg PO TID #21 cap 09/19/23 [Rx] Sennosides/Docusate Sodium [Senna Plus 8.6-50 mg Softgel] 1 each PO DAILY #20 capsule 09/19/23 [Rx] Follow up Appointment(s)/Referral(s): Eladio Gardner MD [Primary Care Provider] - 1-2 days [facility], [NON-STAFF] - As Needed Jaret Palacios DO [Doctor of Osteopathic Medicine] - 2 Weeks Activity/Diet/Wound Care/Special Instructions: Spine Discharge and Recovery Instructions Keep dressing clean, dry, intact. Keep dressing on until 09/22/2023. Okay to remove dressing beginning 09/22/2023 Date of Surgery: 09/17/2023 Diagnosis: Nonhealing lumbar wound Procedure: Lumbar I&D Medications: See medication list All medication refills should be obtained through your primary care doctor or your clinic spine surgeon. Please discuss prescription refills at your follow up appointment. Do not call the hospital for medication refills. Dressing: Leave your dressing in place for a total of 5 days post operatively. Then you may remove your dressing and leave open to air. Keep the area clean and if not able to keep area clean, then cover with sterile gauze and tape. Showering: You may shower 3 days after your procedure allowing soap and water to run over incision. Do not scrub. Do not soak. Blot dry. Follow up: Please confirm a follow up appointment with your surgeon 3 weeks post operatively. Please make an appointment to follow up with your PCP in 1-2 weeks after surgery for evaluation 3 phase, 3-week plan POST OP WEEKS 1-3 1. Lifting/carrying/pushing/pulling limited to less than 5 pounds. 2. Do not sit for longer than 15 minutes at one time. Get up and walk around. Prolonged sitting is NOT advised. If you lay down, see if you can tolerate laying down on you front (belly side) 3. Walk for periods of 15 minutes = 1 mile but no longer; do it multiple times times each day. 4. Ice your low back after activity. POST OP WEEKS 3-6 1. Lifting limited to less than 20 pounds. 2. Do not sit for longer than 30 minutes at a time. Frequently change positions. Use a sit-to stand workstation or take frequent breaks from sitting if you have returned to work. 3. Walk for 30 minutes each day. If possible, do these three or more times a day POST OP WEEKS 6+ At your 6-week appointment we will give you a physical therapy referral to focus on a core stabilization and strengthening program. You should also work on leg & buttock strengthening, hamstring & quadriceps stretching, and continue a low impact aerobic activity program such as swimming, walking, or riding a stationary bicycle. During the initial 6 weeks after your surgery, you are at the highest risk of re-injuring your spine. You should generally avoid BLTs (bending, lifting and twisting combination motions) and follow the above guidelines to reduce the chance of reinjury. You can anticipate post op appointments in our office at approximately 3 weeks and 6 weeks after your surgery. INCISION CARE: If your incision is not draining you do NOT need to cover it with a dressing. Keep your incision clean, dry and intact. In most cases, we apply skin glue, ephraim or sutures to the incision at the time of surgery. This will be like a crust or have the appearance of a scab and will fall off in time on its own. The stitches or ephraim need to be removed at 3 weeks post op appointment. You may begin to shower 3 days after surgery (this allows the glue to hendrickson well). However, please avoid scrubbing the incision site or peeling off any of the skin glue. This will ensure optimal healing of your incision. Also, during this time avoid soaking the incision area in water - this includes swimming pools, hot tubs or baths. No ointments, lotions or oi ls on the incision until your surgeon allows. Leave ephraim, sutures or glue in place. Neurological dysfunction that comes on suddenly can also be a sign of a stroke. Below some common symptoms of a stroke are listed: B - balance difficulty such as sudden onset walking or leaning to one side - NEW E - eye problem such as sudden double vision or trouble seeing on one side - NEW F - Facial weakness or numbness on one side - NEW A - Arm or leg weakness or numbness on one side - NEW S - Slurred speech or difficulty with word finding - NEW T - Time is BRAIN! Call 911 as soon as you recognize these symptoms Diet: Consume a regular diet rich in vegetables and lean protein such as chicken or fish. You should consume in a ratio of approximately 20% fats|40% carbohydrates|40%protein. Vegetables, sweet potatoes, brown rice or quinoa are examples of good carbohydrates. Chips, white bread, cookies and sweets/sugar are examples of bad carbohydrates. Limit your bad carbs, go wild with good carbs. "Life's Simple 7" Guidelines as per [place] [employer] These will help you reclaim your life after surgery and helper electrical in your recovery, keeping in mind your restrictions. (1) Get Active. Physical activity can help people lose weight, control high blood pressure and cholesterol, feel emotionally better, and sleep better. (2) Control Cholesterol. Avoid a diet high in saturated fat, trans fat, & cholesterol. Limit whole milk & cream, ice cream, butter, egg yolks, processed meats (like sausage and hot dogs), and fatty meats. Choose healthy foods that are low in saturated fat, trans fat and cholesterol which include: Fruits and vegetables, fiber rich grain products (like whole grain pasta and brown rice), lean meat such as chicken, fish, nuts, seeds, and legumes. (3) Eat Better. Eat small portions. Shop at the grocery with a list and do not stray from it. Tips for a healthy diet include: Limit sodium intake to less than 1500mg daily, avoid prepackaged, processed, and fast foods, choose a diet rich in fruits, vegetables, and whole grain, high fiber foods, and limit saturated & cholesterol in your diet. (4) Manage Blood Pressure. If you have high blood pressure, you should have a cuff at home so that you can check your blood pressure regularly. Be sure you have a good cuff. An arm one is generally better than a wrist one. Bring the cuff to a doctor's appointment to validate that the measurements that your cuff are taking are accurate. Take your blood pressure twice daily when you are sitting down and relaxing. Record the numbers in a log and bring this log with you to your doctors' appointments. (5) Lose Weight if your BMI is above 25. A healthy BMI is between 19-25. To calculate Your BMI, you may use a Standard BMI Calculator on the NIH BMI website: <www.nhlbi.nih.gov/guidelines/obesity/BMI/bmicalc.htm>. Weigh oneself daily. If you are overweight, set a goal to lose weight. A pound a week loss if needed is a good target. (6) Reduce Blood Sugar. Limit foods and liquids with "added sugars." (Added sugars include sucrose, fructose, glucose, maltose, dextrose, high fructose corn syrup, corn syrup, concentrated fruit juice and honey). (7) Stop Smoking. If you smoke, quitting smoking is one of the best things that you can do for your health. Smoking increases your risk of heart attack, stroke, and peripheral vascular disease, which is a build-up of plaque in your arteries. Please discard all the cigarettes and lighters in your house. Have a plan for what you will do when you have the urge to smoke. Direct and second- hand smoke shortens your life as well as the lives of your family, friends and others around you. For your health and the health of those around you, please consider quitting! Proper Bending Body Mechanics: Maintain a wide stance with one foot slightly in front of the other. Keep your back straight. Bend utilizing the strength in your hips and knees. Do not bend at the waist. Maintain the lifted object at your waist-level close to your body. Avoid lifting weight that causes immediately pain or pain anywhere in the body afterwards. Smoking/Nicotine If there was ever one thing that you could do to increase your overall health, decrease your risk of cardiovascular problems by about 39% the second you make the choice, it is to STOP SMOKING. Your body's most instant gratification is the second you stop smoking. We have all heard the studies, read the articles but it is true, smoking is extremely bad for your overall health, and moreover it is detrimental to your bone health. Nicotine, IN ANY FORM, kills bone cells, prevents your body from healing fractures, and significantly prolongs healing after surgery. In spine surgery specifically, it increases your risk of not healing your bones to create a fusion and increases your risk of having a revision surgery due to this up to 60%. I know it is hard. I know it feels impossible. But there are ways. Take control of your life. We are here to help you through it. And when you are ready, ask us and we can direct you to help if you desire. Use the START Plan to Quit Smoking (please visit the Helpguide.org website listed below for more information): S = Set a quit date. Choose a date within the next 2 weeks, so you have enough time to prepare without losing your motivation to quit. If you mainly smoke at work, quit on the weekend, so you have a few days to adjust to the change. T = Tell family, friends, and co-workers that you plan to quit. Let your friends and family in on your plan to quit smoking and tell them you need their support and encouragement to stop. Look for a quit francis who wants to stop smoking as well. You can help each other get through the rough times. A = Anticipate and plan for the challenges you'll face while quitting. Most people who begin smoking again do so within the first 3 months. You can help yourself make it through by preparing ahead for common challenges, such as nicotine withdrawal and cigarette cravings. R = Remove cigarettes and other tobacco products from your home, car, and work. Throw away all your cigarettes (no emergency pack!), lighters, ashtrays, and matches. Wash your clothes and freshen up anything that smells like smoke. Shampoo your car, clean your drapes and carpet, and steam your furniture. T = Talk to your doctor about getting help to quit. Your doctor can prescribe medication to help with withdrawal and suggest other alternatives. If you can't see a doctor, you can get many products over the counter at your local pharmacy or grocery store, including the nicotine patch, nicotine lozenges, and nicotine gum. Resources for Quitting Smoking: <https://www.[place].gov/documents/[facility]/Quit_Tobacco_Resources_for_patients_313 480_7.pdf> Supplementation: Take recommended dosages of Vitamin D and Calcium to help fortify your bones and help them to heal. See your health maintenance packet for dosages and recommended levels. DVT/VTE prophylaxis: You will be given compression stockings from the hospital. Wear these daily for the first two weeks after surgery. You may take them off at night. You may be prescribed a medication to help thin your blood. Take this as directed. If you are not prescribed this medication, early and frequent ambulation has been shown to be the best prophylaxis to deep vein thrombosis and sequelae related to this event. Discharge Disposition: TRANSFER TO SNF/ECF
--- NOTE | 2023-09-19 13:57 | P.PN ---
Subjective Progress Note Date: 09/19/23 Principal diagnosis: 1. Nonhealing wound low back; history of recent [id number] decompression and fusion Patient seen at bedside this morning sitting up in chair with legs elevated. Patient states she is still having some generalized low back pain since surgery. No significant changes. Patient is wondering when she will have drain removed. Patient is aware and looking forward to going to rehab upon discharge. PICC line was placed this morning. Patient denies any other issues at this time. Objective - Vital Signs Vital signs: Vital Signs Temp 98.8 F 09/19/23 10:10 Pulse 89 09/19/23 06:57 Resp 17 09/19/23 06:57 BP 91/50 09/19/23 06:57 Pulse Ox 96 09/19/23 08:40 FiO2 Intake & Output 09/18/23 09/19/23 09/19/23 18:59 06:59 18:59 Output Total 20 Balance -20 Output: Drainage 20 Right Lower Back 20 Other: Voiding Method Toilet Toilet # Voids 3 2 - Exam inspection: silver foam dressing present over lumbar spine. Some saturation present on the dressing. Drain is in place with 20 mL serosanguineous output in drain overnight. Drain removed at bedside. Dressing removed in change of bedside. Sutures are well aligned and intact. Negative for any open fractures, significant erythema/ecchymosis. Sensation: Equal, symmetric, bilaterally throughout the upper and lower extremities. Palpation: Moderate tenderness to palpation near incision. Nontender to palpation throughout rest of exam. Range of motion: Intact grossly throughout bilateral upper and lower extremities. Motor: 4/5 in all major motor groups in BUE and BLE Neurovascular: Radial pulses intact, 2+ bilaterally. Cap refill under 3 seconds in digits upper extremities. Special tests: Negative Homans. Negative Naomi bilat. Negative clonus bilat - Labs CBC & Chem 7: 09/19/23 11:02 09/18/23 06:31 Labs: Abnormal Lab Results - Last 24 Hours (Table) 09/19/23 09/19/23 Range/Units 01:41 11:02 WBC 13.4 H (3.8-10.6) k/uL RBC 3.59 L (3.80-5.40) m/uL Hgb 10.9 L (11.4-16.0) gm/dL Hct 33.3 L (34.0-46.0) % POC Glucose (mg/dL) 128 H (70-110) mg/dL Microbiology - Last 24 Hours (Table) 09/16/23 15:00 Blood Culture - Preliminary Blood 09/16/23 15:16 Blood Culture - Preliminary Blood 09/17/23 19:01 Gram Stain - Preliminary Back Wound Culture - Preliminary Gram Neg Bacilli 09/17/23 19:01 Gram Stain - Preliminary Back Wound Culture - Preliminary Assessment and Plan Assessment: 1. Nonhealing wound low back; history of recent [id number] decompression and fusion - Postop day #2 status post lumbar incision drainage and irrigation and debridement Plan: 1. Nonhealing wound low back; history of recent [id number] decompression and fusion - surgery performed 09/17/2023lumbar incision and drainage and irrigation debridement. 20 cc serosanguineous output overnight. Drain removed at bedside this morning. Dressing changed. Patient to be weightbearing as tolerated with walker and assistance as necessary. TLSO brace on while up and about. We'll continue to follow patient during stay in hospital. Continue antibiotics. Prelim culture shows gram-negative bacilli. Appreciate medical and ID recommendations. Discharge antibiotics per ID. Discharge to rehab later today 2. Appreciate medical and ID management - prelim cultures show gram-negative bacilli. Discharge antibiotics per ID 3. Pain management - [place]; Lyrica; Flexeril 4. DVT prophylaxis - mechanical 5. GI prophylaxis - senna 6. PT/OT - TLSO brace on while up and about; weightbearing as tolerated with walker 7. Encourage incentive spirometer use 8. Discharge planning - discharge to rehab later today. Time with Patient: Less than 30
[2023-09-19 16:38] LABS: Glucose,Whole Blood 136 mg/dL (70-110)
[2023-09-19 18:44] VITALS: RESP 18
[2023-09-19 19:08] LABS: Glucose,Whole Blood 117 mg/dL (70-110)
[2023-09-19] MEDS: TOPIRAMATE 25 MG TAB PO SCH (22:02)
[2023-09-19] MEDS: ATORVASTATIN 10 MG TAB PO SCH (22:02)
--- NOTE | 2023-09-19 22:09 | P.PN ---
Subjective Progress Note Date: 09/19/23 Principal diagnosis: Lumbar surgical site infection Patient is a 68-year-old female with a past medical history negative for fibromyalgia-Hyperlipidemia PE and seizure disorder in this patient who is status post T10 to pelvis decompression fusion and revision decompression fusion from L2-L5 that was completed on 07/15/2023 patient is now presenting to the hospital concerning for lumbar wound infection status post I&D and deep culture. On today's evaluation that is 09/19/2023, the patient denies having any fever or any chills patient is breathing comfortably on 2 L nasal cannula oxygen denies any chest pain shortness of breath or cough no abdominal pain has been co mplaining of some pain to the lower back area though controlled with the pain medication no vomiting or diarrhea. Patient did have vital of 13.4 creatinine 0.71 OR cultures currently growing gram-negative bacilli. Objective - Vital Signs Vital signs: Vital Signs Temp 98.8 F 09/19/23 10:10 Pulse 89 09/19/23 06:57 Resp 17 09/19/23 06:57 BP 91/50 09/19/23 06:57 Pulse Ox 96 09/19/23 08:40 FiO2 Intake & Output 09/18/23 09/19/23 09/19/23 18:59 06:59 18:59 Output Total 20 Balance -20 Output: Drainage 20 Right Lower Back 20 Other: Voiding Method Toilet Toilet # Voids 3 2 - Exam GENERAL DESCRIPTION: Elderly female up in chair in no distress RESPIRATORY SYSTEM: Unlabored breathing , decreased breath sounds at bases HEART: S1 S2 regular rate and rhythm ,no loud murmurs ABDOMEN: Soft , no tenderness EXTREMITIES: No edema feet - Labs CBC & Chem 7: 09/19/23 11:02 09/18/23 06:31 Labs: Abnormal Lab Results - Last 24 Hours (Table) 09/19/23 09/19/23 Range/Units 01:41 11:02 WBC 13.4 H (3.8-10.6) k/uL RBC 3.59 L (3.80-5.40) m/uL Hgb 10.9 L (11.4-16.0) gm/dL Hct 33.3 L (34.0-46.0) % POC Glucose (mg/dL) 128 H (70-110) mg/dL Microbiology - Last 24 Hours (Table) 09/16/23 15:00 Blood Culture - Preliminary Blood 09/16/23 15:16 Blood Culture - Preliminary Blood 09/17/23 19:01 Gram Stain - Preliminary Back Wound Culture - Preliminary Gram Neg Bacilli 09/17/23 19:01 Gram Stain - Preliminary Back Wound Culture - Preliminary Assessment and Plan (1) Wound cellulitis after surgery Current Visit: Yes Status: Acute Code(s): T81.49XA - INFECTION FOLLOWING A PROCEDURE, OTHER SURGICAL SITE, INIT SNOMED Code(s): 396831301 Plan: 1patient presented to hospital with concern for infection to the lumbar spine incision area in this patient who did have extensive surgery with T10 to pelvis decompression fusion and revision that was done on 07/15/2023 patient did have a cultures in the [facility] on 09/04/2023 that did grow E. coli Klebsiella Enterococcus faecalis and anaerobes, patient is not very clear if she was on antibiotic and which type 2-patient with a penicillin allergy therapy limit the number of antibiotics safe to use 3we will keep the patient on vancomycin Rocephin and Flagyl while waiting for the OR cultures to be finalized with discharge antibiotic on the basis of OR culture this has been communicated to the SENIOR CHEMICAL ENGINEER for the surgical team Dictation was produced using [employer], Part [employer] dictation software. please excuse any grammatical, word or spelling errors.
[2023-09-20] MEDS: CEFEPIME 2 GM in SODIUM CHLORIDE 0.9% 100 ML IVPB SCH ×2 (00:19→06:15)
[2023-09-20] MEDS: VANCOMYCIN 1,500 MG in SODIUM CHLORIDE 0.9% 500 ML 500 ML IVPB SCH (00:20)
[2023-09-20] MEDS: ACETAMINOPHEN TAB 325 MG TAB PO SCH ×2 (00:52→06:15)
[2023-09-20 05:33] LABS: Glucose,Whole Blood 133 mg/dL (70-110)
[2023-09-20] MEDS: INSULIN ASPART (NovoLOG) 100 UNIT/ML VIAL SQ SCH (05:51)
[2023-09-20] MEDS: FAMOTIDINE 20 MG TAB PO SCH (09:27)
[2023-09-20] MEDS: SENNOSIDES 8.6 MG TAB PO SCH (09:27)
[2023-09-20] MEDS: levETIRAcetam 500 MG TAB PO SCH (09:27)
[2023-09-20] MEDS: PREGABALIN 75 MG CAP PO SCH (09:27)
[2023-09-20] MEDS: metroNIDAZOLE 500 MG TAB PO SCH (09:27)
[2023-09-20] MEDS: HYDROcodone/APAP 7.5-325MG 1 EACH TAB PO SCH (09:28)
[2023-09-20] MEDS: CYCLOBENZAPRINE 5 MG TAB PO SCH (09:32)
[2023-09-20 09:47] VITALS: BP 98/61; PULSE 97; TEMP 97.9
--- NOTE | 2023-09-20 09:48 | P.PN ---
Subjective Progress Note Date: 09/20/23 Principal diagnosis: 1. Nonhealing wound low back; history of recent [id number] decompression and fusion Patient was seen at bedside this morning lying in semirecumbent position. Patient feels that she is doing better today. Patient says she did get up yesterday with staff and walked to the chair. Patient feels she has been progressing every day since surgery. Patient has been discussing with her about discharge to rehab. Patient denies any other issues at this time. Patient denies chest pain, fever, nausea, vomiting, change in vision, loss of bowel/bladder control Objective - Vital Signs Vital signs: Vital Signs Temp 97.7 F 09/20/23 00:50 Pulse 89 09/20/23 00:50 Resp 18 09/20/23 00:50 BP 96/54 09/20/23 00:50 Pulse Ox 95 09/20/23 00:50 FiO2 Intake & Output 09/19/23 09/20/23 09/20/23 18:59 06:59 18:59 Weight 89.811 kg Other: Voiding Method Toilet # Voids 5 - Exam inspection: silver foam dressing present over lumbar spine. Dressing appears to be dry and intact. Negative for any open fractures, significant erythema/ecchymosis. Sensation: Equal, symmetric, bilaterally throughout the upper and lower extremities. Palpation: Moderate tenderness to palpation near incision. Nontender to palpation throughout rest of exam. Range of motion: Intact grossly throughout bilateral upper and lower extremities. Motor: 4/5 in all major motor groups in BUE and BLE Neurovascular: Radial pulses intact, 2+ bilaterally. Cap refill under 3 seconds in digits upper extremities. Special tests: Negative Homans. Negative Naomi bilat. Negative clonus bilat - Labs CBC & Chem 7: 09/19/23 11:02 09/18/23 06:31 Labs: Abnormal Lab Results - Last 24 Hours (Table) 09/19/23 09/19/23 09/19/23 Range/Units 11:02 16:36 19:06 WBC 13.4 H (3.8-10.6) k/uL RBC 3.59 L (3.80-5.40) m/uL Hgb 10.9 L (11.4-16.0) gm/dL Hct 33.3 L (34.0-46.0) % POC Glucose (mg/dL) 136 H 117 H (70-110) mg/dL 09/20/23 Range/Units 05:31 WBC (3.8-10.6) k/uL RBC (3.80-5.40) m/uL Hgb (11.4-16.0) gm/dL Hct (34.0-46.0) % POC Glucose (mg/dL) 133 H (70-110) mg/dL Microbiology - Last 24 Hours (Table) 09/17/23 19:01 Anaerobic Culture - Preliminary Back 09/16/23 15:00 Blood Culture - Preliminary Blood 09/16/23 15:16 Blood Culture - Preliminary Blood 09/17/23 19:01 Gram Stain - Preliminary Back Wound Culture - Preliminary Gram Neg Bacilli Klebsiella oxytoca Assessment and Plan Assessment: 1. Nonhealing wound low back; history of recent [id number] decompression and fusion - Postop day #3 status post lumbar incision drainage and irrigation and debridement Plan: 1. Nonhealing wound low back; history of recent [id number] decompression and fusion - surgery performed 09/17/2023lumbar incision and drainage and irrigation debridement. Patient to be weightbearing as tolerated with walker and assistance as necessary. TLSO brace on while up and about. We'll continue to follow patient during stay in hospital. Continue antibiotics. Cultures showing Klebsiella oxytoca. Appreciate medical and ID recommendations. Discharge antibiotics per ID. Discharge to rehab later today 2. Appreciate medical and ID management - Cultures showing Klebsiella oxytoca. Discharge antibiotics per ID 3. Pain management - [place]; Lyrica; Flexeril 4. DVT prophylaxis - mechanical 5. GI prophylaxis - senna 6. PT/OT - TLSO brace on while up and about; weightbearing as tolerated with walker 7. Encourage incentive spirometer use 8. Discharge planning - discharge to rehab later today. Time with Patient: Less than 30
[2023-09-20] MEDS ORDERED: VANCOMYCIN TROUGH DUE 1 EACH MISC MISCELLANE ONE (11:00)
[2023-09-20 12:13] LABS: African American GFR (CKD) >90 (>60 ml/min/1.73 sqM); Non-African American GFR(CKD) >90 (>60 ml/min/1.73 sqM)
--- NOTE | 2023-09-20 18:02 | P.PN ---
Subjective Progress Note Date: 09/20/23 Principal diagnosis: Lumbar surgical site infection Patient is a 68-year-old female with a past medical history negative for fibromyalgia-Hyperlipidemia PE and seizure disorder in this patient who is status post T10 to pelvis decompression fusion and revision decompression fusion from L2-L5 that was completed on 07/15/2023 patient is now presenting to the hospital concerning for lumbar wound infection status post I&D and deep culture. On today's evaluation that is 09/20/2023, the patient remains to be afebrile , patient is breathing comfortably on 2 L nasal cannula oxygen , Pt denies chest pain shortness of breath or cough no abdominal pain, has been complaining of more drainage the lower back , pain is controlled with the pain medication no vomiting or diarrhea. Patient did have WBC of 13.4 as of yesterday , creatinine 0.71 OR cultures currently growing Klebsiella and another gram-negative with ID pending Objective - Vital Signs Vital signs: Vital Signs Temp 97.9 F 09/20/23 08:19 Pulse 97 09/20/23 08:19 Resp 18 09/20/23 08:19 BP 98/61 09/20/23 08:19 Pulse Ox 93 L 09/20/23 08:19 FiO2 Intake & Output 09/19/23 09/20/23 09/20/23 18:59 06:59 18:59 Weight 89.811 kg Other: Voiding Method Toilet # Voids 5 1 - Exam GENERAL DESCRIPTION: Elderly female up in chair in no distress RESPIRATORY SYSTEM: Unlabored breathing , decreased breath sounds at bases HEART: S1 S2 regular rate and rhythm ,no loud murmurs ABDOMEN: Soft , no tenderness EXTREMITIES: No edema feet - Labs CBC & Chem 7: 09/19/23 11:02 09/20/23 11:15 Labs: Abnormal Lab Results - Last 24 Hours (Table) 09/19/23 09/19/23 09/19/23 Range/Units 11:02 16:36 19:06 WBC 13.4 H (3.8-10.6) k/uL RBC 3.59 L (3.80-5.40) m/uL Hgb 10.9 L (11.4-16.0) gm/dL Hct 33.3 L (34.0-46.0) % POC Glucose (mg/dL) 136 H 117 H (70-110) mg/dL 09/20/23 Range/Units 05:31 WBC (3.8-10.6) k/uL RBC (3.80-5.40) m/uL Hgb (11.4-16.0) gm/dL Hct (34.0-46.0) % POC Glucose (mg/dL) 133 H (70-110) mg/dL Microbiology - Last 24 Hours (Table) 09/17/23 19:01 Anaerobic Culture - Preliminary Back 09/16/23 15:00 Blood Culture - Preliminary Blood 09/16/23 15:16 Blood Culture - Preliminary Blood 09/17/23 19:01 Gram Stain - Preliminary Back Wound Culture - Preliminary Gram Neg Bacilli Klebsiella oxytoca Assessment and Plan (1) Wound cellulitis after surgery Status: Acute Code(s): T81.49XA - INFECTION FOLLOWING A PROCEDURE, OTHER SURGICAL SITE, INIT SNOMED Code(s): 971801413 Plan: 1patient presented to hospital with concern for infection to the lumbar spine incision area in this patient who did have extensive surgery with T10 to pelvis decompression fusion and revision that was done on 07/15/2023 patient did have a cultures in the [facility] system on 09/04/2023 that did grow E. coli Klebsiella Enterococcus faecalis and anaerobes, patient is not very clear if she was on antibiotic and which type 2-patient with a penicillin allergy therapy limit the number of antibiotics safe to use 3cultures growing Klebsiella and another gram negative with ID pending , continue with cefepime , flagyl while waiting for the cultures to be finalized Dictation was produced using [employer] dictation software. please excuse any grammatical, word or spelling errors. Time with Patient: Greater than 30
--- NOTE | 2023-09-20 22:00 | P.PN ---
Subjective Progress Note Date: 09/20/23 This is 68-year-old female admitted with cellulitis, seroma wearing a wound vac in a patient with past medical history significant for low back pain, low extremity weakness, L2-L5 decompression and fusion , recent L5-S1 fusion with T10 pelvis fusion with revision L2-5 fusion, L4-S1 bilateral laminectomy, facetectomy and foraminotomy for decompression ,removal of segmental hardware L2-L5 , referred to the ER by orthopedic surgery. Presents with nonhealing lumbar wound, cellulitis wearing a wound VAC. Denies chest pain, palpitations or shortness of breath. Maintaining O2 sats in the mid to high 90s on room air. Denies lightheadedness dizziness or focal deficits. Denies headache. Denies fever chills or night sweats. Afebrile, normal WBC. Hematology, coagulation and chemistry panel is unremarkable with the exception of glucose 128, alk phosphatase 174. Blood cultures obtained,pending. CRP 8.2 Procalcitonin 0.06 . Antibiotics of IV Kefzol initiated in the ER 09/18/2023 status post lumbar I & D. Tolerated procedure well. Pain controlled reports good sleep. Minimal tremors related to anesthesia, improving. IS at bedside, reports using every hour. Denies chest pain, pa lpitations or shortness of breath. Maintaining O2 sats in the high 90s on 3 L nasal cannula. Afebrile, WBC increased to 10.9. Hemoglobin stable, platelets 294. Renal function stable. 09/19/2023 maintained on IV antibiotics of vancomycin, Rocephin and Flagyl, as per ID, cultures pending/preliminary aerobic wound culture reporting gram- negative bacilli. T-max 100.5, CBC pending. Renal function stable. Glucose 128, insulin sliding scale initiated. Pain controlled. Passing flatus. Maintaining O2 sats in the mid 90s on room air. Tachycardia resolved earlier this morning. Blood pressures soft. Denies chest pain, palpitations or shortness of breath. 09/20/2023 Patient evaluated today resting in bed. Per ID discharge antibiotic recommendations have been given. Back cultures showing E.Coli and Klebsiella. Microsensitivities finalized. PICC line in place. Discussed plan for discharge to [facility] for wound care and IV antibiotics over the phone with patients . states her blood pressure does run on the lower side and this is normal for her. Review of Systems Constitutional: Denied any fatigue denied any fever. Cardio vascular: denied any chest pain, palpitations Gastrointestinal: denied any nausea, vomiting, diarrhea Pulmonary: Denied any shortness of breath cough Neurologic denied any new focal deficits All inpatient medications were reviewed and appropriate changes in these medications as dictated in the interval history and assessment and plan. PHYSICAL EXAMINATION: GENERAL: The patient is alert and oriented x3, not in any acute distress. Well developed, well nourished. HEENT: Pupils are round and equally reacting to light. EOMI. No scleral icterus. No conjunctival pallor. Normocephalic, atraumatic. No pharyngeal erythema. No thyromegaly. CARDIOVASCULAR: S1 and S2 present. No murmurs, rubs, or gallops. PULMONARY: Chest is clear to auscultation, no wheezing or crackles. ABDOMEN: Soft, nontender, nondistended, normoactive bowel sounds. No palpable organomegaly. MUSCULOSKELETAL: No joint swelling or deformity. EXTREMITIES: No cyanosis, clubbing, or pedal edema. NEUROLOGICAL: Gross neurological examination did not reveal any focal deficits. SKIN: No rashes. Assessment Wound Cellulitis, seroma in a patient with a nonhealing lumbar wound with wound VAC in a patient with history of Recent [id number] decompression and fusion 07/15/2023.Status post lumbar I & D. Cultures showing E.Coli and Klebsiella. History of L2-L5 decompression and fusion, bilateral lower extremity radiculopathy and weakness Seizure disorder Ongoing nicotine dependence, smoking cessation reinforced History of PE Fibromyalgia Hyperlipidemia Multiple orthopedic surgeries DVT prophylaxis anticoagulated with eliquis. GI prophylaxis Full Code Plan: Wound cultures finalized. Discharge antibiotics per ID scripts given to case management. Patient will discharge to [facility] today. Follow up with PCP. updated on plan of care and will provide transportation. The impression and plan of care has been dictated by Sally Kan, Nurse Practitioner as directed. Dr. Brent MD I have performed a history and physical examination and medical decision making of this patient, discussed the same with the dictator, and agree with the dictators assessment and plan as written, documented as a scribe. Based on total visit time, I have performed more than 50% of this visit. Objective - Vital Signs Vital signs: Vital Signs Temp 97.9 F 09/20/23 08:19 Pulse 97 09/20/23 08:19 Resp 18 09/20/23 08:19 BP 98/61 09/20/23 08:19 Pulse Ox 93 L 09/20/23 08:19 FiO2 Intake & Output 09/19/23 09/20/23 09/20/23 18:59 06:59 18:59 Weight 89.811 kg Other: Voiding Method Toilet Toilet # Voids 5 1 - Labs CBC & Chem 7: 09/19/23 11:02 09/20/23 11:15 Labs: Abnormal Lab Results - Last 24 Hours (Table) 09/19/23 09/19/23 09/20/23 Range/Units 16:36 19:06 05:31 POC Glucose (mg/dL) 136 H 117 H 133 H (70-110) mg/dL Microbiology - Last 24 Hours (Table) 09/17/23 19:01 Anaerobic Culture - Preliminary Back 09/16/23 15:00 Blood Culture - Preliminary Blood 09/16/23 15:16 Blood Culture - Preliminary Blood 09/17/23 19:01 Gram Stain - Preliminary Back Wound Culture - Preliminary Gram Neg Bacilli Klebsiella oxytoca Assessment and Plan Time with Patient: Less than 30
--- NOTE | 2023-09-24 07:17 | P.OP ---
Date of Procedure: 09/17/23 Preoperative Diagnosis: 1. POST OP FLUID COLLECTION WITH WOUND DEHISCENCE LUMBAR SPINE S/P [id number] 2. LOW BACK PAIN 3. MULTIPLE MEDICAL COMORBID CONDITIONS 4. TOBACCO ABUSE Postoperative Diagnosis: 1. POST OP FLUID COLLECTION WITH WOUND DEHISCENCE LUMBAR SPINE S/P [id number] 2. LOW BACK PAIN 3. MULTIPLE MEDICAL COMORBID CONDITIONS 4. TOBACCO ABUSE Procedure(s) Performed: 1. INCISION AND DRAINAGE WITH EXCISIONAL DEBRIDMENT OF SKIN, SOFT TISSUE, MUSCLE AND BONE OF THE LUMBAR REGION [id number] USING THE FOLLOWING: -SKIN KNIFE TO EXCISE SKIN AND NECROTIC SOFT TISSUE -RONGURE AND CURETTE USED TO REMOVE DEBRIS -CURETTE TO SCRAPE AND FRESHEN EDGES 2. COMPLEX 3 LAYERED CLOSURE LUMBAR SPINE Implants: STIMULAN BEADS Anesthesia: GETA Surgeon: Jaret Palacios Product Development Coordinator #1: Manuel Gee (WAS PRESENT AND ASSISTED WITH ALL ASPECTS OF THE CASE FROM POSITION TO CLOSURE) Estimated Blood Loss (ml): 150 IV fluids (ml): 500 Urine output (ml): 0 Pathology: other (X2 CULTURES LUMBAR SPINE) Condition: stable Disposition: PACU Indications for Procedure: Joshua Julio is a 68-year-old female presenting for evaluation of low back pain and drainage. It was my pleasure to have seen and examined Joshua Julio. In our visit today we have had a chance to go over subjective complaints, physical examination findings and treatments including the natural course history without intervention and various interventional options. The patients imaging demonstrates Fluid collection in lumbar area On physical exam, Joshua Julio demonstrates wound dehiscences lower back. I have explained to the patient that as their condition progresses it will cause further neurological deficits and eventual paralysis. Based on the patients imaging, physical exam, and the rapid progression and disabling nature of their symptoms, at this time I recommend surgery in the form or a: I&D low back I discussed the risk and benefits of this procedure at length with Joshua Julio. The patient agreed to considered pursuing the procedure abovementioned. Prior to surgery, she should follow up with her PCP (Cardio, ID, IM etc) for clearance. Questions were invited and answered, and the patient wishes to proceed as outlined below. Currently, I am recommendin. incision and drainage with irrigation and debridement low back Description of Procedure: The patient was seen and examined in the preoperative area. All preoperative protocols were followed. Informed consent was obtained risks and benefits of the procedure were discussed at length. Risks including bleeding infection damage to the surrounding tissue and risk of reoperation were discussed with the patient. Risk of anesthesia up to and including was a discussed with the patient. These are outlined in the risk review. They were willing to accept these risks and all of the risks of surgery. The patient was given a weight-based dose of antibiotics in the form of 2 g Ancef. The patient was seen and evaluated by the anesthesia team who deemed them fit for surgery. The site was marked, the patient was willing to proceed with the procedure. The patient was transferred to the operative suite by the Department of anesthesia. They were then drifted off to sleep by the department anesthesia and GETA was performed. The patient tolerated this well. Arroyo catheter was placed by nursing staff, atraumatically. Once confirmation of lines and ventilation the patient was transferred to a prone Ming table very carefully. All bony prom inences including wrists, elbows, axilla, chest, hips, and thighs, and feet were padded very well. Special attention was paid to the genitalia and these were padded accordingly. SCDs were placed on bilateral lower extremities and were connected. Arms were well padded and placed on arm boards up and out in the 90/90 position. Once in position, again we confirmed good ventilation capabilities and that lines were running appropriately. The patient's thoracolumbar spine was then exposed. 1010s were placed outlining the incision site. Standard alcohol was used to clean the incision site and allowed to dry. C-arm was used to biomark the patient and confirm level for incision which was marked with a skin marker. Operative briefing was performed with all teams and everyone in agreement to proceed. The patient was then prepped and draped in a normal sterile fashion. Timeout was then performed and all parties were in agreement with the procedure to be performed. Midline skin incision was then made over the previously incised and the marked area and dissection taken down. There is a tract that was then excised using a skin knife which measured approximately 10 cm x 5 cm x 7 cm. This was removed from the lower lumbar portion which is where she had dehisced. Dissection was taken down to the fascia which was identified. Sutures removed from this area and a large fluid collection was removed from the deep area. We then cultured superficial and deep tissues. We then proceeded with debridement of skin and soft tissue muscle and bone using curettes rondure Kerrison rongeur etc. Once thorough debridement had been done we then irrigated the wound with 3 L of Ancef solution. We then debrided further the tissues in this area to create a bleeding tissue bed. We then irrigated again with 3 L of a gentamicin irrigation. Further debridement was then done with a curette of the wound edges and we created flaps for the fascia. We then irrigated with Irrisept and a Betadine solution. Once this was accomplished we then irrigated with 3 L of normal sterile saline. Thorough debridement had been done as well as irrigation. Hardware was all intact and appeared to be in good standing. Dura was intact with no issues. A deep drain was then placed. Stimulan beads were placed deep within the wound along with 2 g of vancomycin powder. We then proceeded with complex layered closure first and the deep fascia with a #1 PDS stitch this was then oversewn with a #1 strata fix. Deep subcu tissue was closed with an 0 PDS followed by oh strata fix. Superficial tissue closed with 2-0 PDS and skin closed with 2-0 nylon. The wound edges approximated very well. The patient was transferred back to their hospital bed atraumatically. Drain continued to hold suction and were in good position. Patient was then awakened and extubated by the department of anesthesia having tolerated the procedure very well with no complications. They were transferred to the postoperative care unit in stable condition.
== END 2023-09-20 12:55 | DRG 857 ==
LOC: EC 12:54 → 4SSUR 15:22
PROVIDERS: ADMIT Orthopaedic Surgery; ATTEND Orthopaedic Surgery
DX: T81.41XA Infection following a procedure, superficial incisional surgical site, initial encounter (principal); L03.312 Cellulitis of back [any part except buttock and flank]; T81.32XA Disruption of internal operation (surgical) wound, not elsewhere classified, initial encounter; M96.842 Postprocedural seroma of a musculoskeletal structure following a musculoskeletal system procedure; Z16.11 Resistance to penicillins; I67.1 Cerebral aneurysm, nonruptured; G40.909 Epilepsy, unspecified, not intractable, without status epilepticus; E78.5 Hyperlipidemia, unspecified; M79.7 Fibromyalgia; F17.210 Nicotine dependence, cigarettes, uncomplicated; B95.2 Enterococcus as the cause of diseases classified elsewhere; B96.20 Unspecified Escherichia coli [E. coli] as the cause of diseases classified elsewhere; B96.1 Klebsiella pneumoniae [K. pneumoniae] as the cause of diseases classified elsewhere; F41.9 Anxiety disorder, unspecified; Y83.8 Other surgical procedures as the cause of abnormal reaction of the patient, or of later complication, without mention of misadventure at the time of the procedure; Z96.653 Presence of artificial knee joint, bilateral; Z98.1 Arthrodesis status; Z79.899 Other long term (current) drug therapy; Z79.01 Long term (current) use of anticoagulants; Z88.5 Allergy status to narcotic agent; Z91.048 Other nonmedicinal substance allergy status; Z88.8 Allergy status to other drugs, medicaments and biological substances; Z91.040 Latex allergy status; Z88.0 Allergy status to penicillin; Z86.711 Personal history of pulmonary embolism
CPT/HCPCS: 36415; 36573; 71046; 80048; 80053; 80202; 82565; 83036; 83605; 84145; 85025; 85027; 85610; 85730; 86140; 87040; 87070; 87075; 87077; 87186; 87205; 93005; 94760; 96374; 99285

== ENCOUNTER → 2023-12-24 | Outpatient (CLI) | payer MEDICARE ==
--- NOTE | 2023-12-25 08:37 | MM ---
Reason for Exam: Screening (asymptomatic). Last mammogram was performed 1 year(s) and 1 month(s) ago. Patient History: Menarche at age 15. First Full-Term at age 20. Postmenopausal. Patient has history of breast feeding. Benign Excisional Biopsy on the left side. Risk Values: Samanta 5 year model risk: 1.4%. NCI Lifetime model risk: 5.2%. Prior Study Comparison: 04/02/2019 Screening Mammogram, [facility]. 09/18/2020 Bilateral Screening Mammogram, [facility]. 11/20/2021 Bilateral Screening Mammogram, [facility]. 11/21/2022 Bilateral MG screening mammo w CAD, [facility]. Tissue Density: The breast tissue is heterogeneously dense. This may lower the sensitivity of mammography. Findings: Analyzed By CAD. There is no suspicious group of microcalcifications or new suspicious mass in either breast. Benign-appearing calcifications. Overall Assessment: Benign, BI-RAD 2 Management: Screening Mammogram of both breasts in 1 year. . Patient should continue monthly self-breast exams. A clinical breast exam by your physician is recommended on an annual basis. This exam should not preclude additional follow-up of suspicious palpable abnormalities. Note on Samanta scores and lifetime risk: 1. A Samanta score greater than 3% is considered moderate risk. If this is the case, consider specialist referral to assess eligibility for a risk reducing agent. 2. If overall lifetime risk for the development of breast cancer is 20% or higher, the patient may qualify for future screening with alternating mammogram and breast MRI. Electronically signed and approved by: Femi Haque M.D. Radiologis
== END | disposition home or self-care (01) ==
LOC: RADMAMWWP 13:56
PROVIDERS: ATTEND Family Medicine
DX: Z12.31 Encounter for screening mammogram for malignant neoplasm of breast (principal); Z78.0 Asymptomatic menopausal state
CPT/HCPCS: 77067

== ENCOUNTER 2024-02-15 13:52 | Emergency (ER) | payer MEDICARE ==
[2024-02-15] MEDS: HYDROmorphone 1 MG/ML 1 ML SYRINGE IM STA ×2 (14:38→17:45)
--- NOTE | 2024-02-15 14:39 | ED ---
Extremity Problem HPI - General Chief complaint: Extremity Problem,Nontraumatic Stated complaint: Leg Pain Both Time Seen by Provider: 02/15/24 14:20 Source: patient, RN notes reviewed Mode of arrival: ambulatory Limitations: no limitations - History of Present Illness Initial comments: This is a 68 year old female who presents to the emergency department for bilateral lower extremity pain. Patient had back surgery with Dr. Palacios in June 2023. This was complicated by an abscess and she had another surgery for this in August 2023. States that she has been struggling with bilateral leg pain since the surgery. The pain starts in the lower back and wraps around the thighs. The pain has started to get worse and is now going down the back of both legs down to her feet, whereas it used to stop at the knee. Denies any redness or swelling in the legs. She is taking muscle relaxants and Grove with no relief. She had to increase her Grove ussage due to her pain, and has since run out of the medication. Denies any loss of bowel/bladder control or saddle anesthesia. MD Complaint: extremity pain - Related Data Home Medications Medication Instructions Recorded Confirmed Apixaban [Eliquis] 5 mg PO BID 10/28/22 02/15/24 Atorvastatin [Lipitor] 10 mg PO HS 10/28/22 02/15/24 Ergocalciferol [Vitamin D2 (1250 1,250 mcg PO SA 10/28/22 02/15/24 Mcg = [id number] Iu)] Famotidine 40 mg PO BID 10/28/22 02/15/24 levETIRAcetam [Keppra] 500 mg PO BID 10/28/22 02/15/24 Topiramate [Topamax] 50 mg PO HS 09/16/23 02/15/24 Glimepiride [Amaryl] 1 mg PO DAILY 02/15/24 02/15/24 HYDROcodone/APAP 10-325MG [Grove 1 tab PO TID 02/15/24 02/15/24 10-325] Pregabalin [Lyrica] 150 mg PO TID 02/15/24 02/15/24 rOPINIRole HCL 0.25 mg PO DAILY@1500 02/15/24 02/15/24 Previous Rx's Medication Instructions Recorded Cyclobenzaprine [Flexeril] 5 mg PO TID #21 tablet 09/19/23 rOPINIRole HCL [Requip] 1 mg PO HS #3 tab 09/22/23 Allergies Allergy/AdvReac Type Severity Reaction Status Date / Time adhesive tape Allergy Rash/Hives Verified 02/15/24 17:24 amitriptyline Allergy Itching Verified 02/15/24 17:24 diclofenac [From Voltaren] Allergy Rash/Hives Verified 02/15/24 17:24 gabapentin [From Neurontin] Allergy Itching Verified 02/15/24 17:24 latex Allergy Rash/Hives Verified 02/15/24 17:24 Penicillins Allergy Anaphylaxis Verified 02/15/24 17:24 Review of Systems ROS Statement: Those systems with pertinent positive or pertinent negative responses have been documented in the HPI. ROS Other: All systems not noted in ROS Statement are negative. Past Medical History Past Medical History: Fibromyalgia, Hyperlipidemia, Pulmonary Embolus (PE), Seizure Disorder Additional Past Medical History / Comment(s): possible mini seizures so now on keppra, brain aneurysm but not large enough for surgery History of Any Multi-Drug Resistant Organisms: None Reported Past Surgical History: Joint Replacement, Orthopedic Surgery, Tonsillectomy Additional Past Surgical History / Comment(s): bilateral knee replacement, back surgery with cage placement, right wrist surgery, right hip and leg surgery with steel cheyenne placed, carpal tunnel release bilaterally, PAIN CLINIC PROCEDURES, Back Past Anesthesia/Blood Transfusion Reactions: No Reported Reaction Past Psychological History: Anxiety Smoking Status: Current every day smoker Past Alcohol Use History: None Reported Past Drug Use History: None Reported - Past Family History Mother Family Medical History: Coronary Artery Disease (CAD), Diabetes Mellitus, Deep Vein Thrombosis (DVT) Brother(s) Family Medical History: Deep Vein Thrombosis (DVT) Sister(s) Family Medical History: Deep Vein Thrombosis (DVT) Daughter(s) Family Medical History: Cancer, Deep Vein Thrombosis (DVT) Additional Family Medical History / Comment(s): Brain tumor. General Exam Limitations: no limitations General appearance: alert, in no apparent distress Head exam: Present: atraumatic, normocephalic, normal inspection Respiratory exam: Present: normal lung sounds bilaterally. Absent: respiratory distress, wheezes, rales, rhonchi, stridor Cardiovascular Exam: Present: regular rate, normal rhythm, normal heart sounds. Absent: systolic murmur, diastolic murmur, rubs, gallop, clicks Extremities exam: Present: other (Bilateral calf tenderness. No erythema or swelling. 2+ DP and PT pulses. ) Back exam: Present: tenderness (Lower lumbar spine) Neurological exam: Present: alert, oriented X3, CN II-XII intact Psychiatric exam: Present: normal affect, normal mood Skin exam: Present: warm, dry, intact, normal color. Absent: rash Course Vital Signs 02/15/24 02/15/24 14:17 16:34 Temperature 98.2 F 98.1 F Pulse Rate 88 78 Respiratory 20 18 Rate Blood Pressure 111/72 118/68 O2 Sat by Pulse 97 96 Oximetry Medical Decision Making - Medical Decision Making This is a 68 year old female who presents to the emergency department for lower extremity pain. Was pt. sent in by a medical professional or institution? @ -No Did you speak to anyone other than the patient for history? @ -No Did you review nursing and triage notes? @ -Yes, and I agree, it is accurate with regards to the patient's symptoms. Were old charts reviewed? @ -No Differential Diagnosis? @ -Differential Musculoskeletal: Muscular strain, contusion, ligament sprain, fracture, arthritis, septic arthritis, bursitis, cellulitis, muscle spasm, nerve compression, DVT, arterial occlusion, herpes zoster, electrolyte abnormality, tumor.... This is not meant to be in all inclusive list EKG interpreted by me (3pts min.)? @ -Not obtained X-rays interpreted by me (1pt min.)? @ -Not obtained CT interpreted by me (1pt min.)? @ -CT scan of the lumbar spine and pelvis obtained. My interpretation identifies no acute fractures. U/S interpreted by me (1pt. min.)? @ -Duplex US of the bilateral LEs obtained. My interpretation identifies no evidence of a DVT. What testing was considered but not performed? (CT, X-rays, U/S, labs)? Why? @ -None What meds were considered but not given? Why? @ -None Did you discuss the management of the patient with other professionals? @ -No Did you reconcile home meds? @ -No Was smoking cessation discussed for >3mins.? @ -No Was critical care preformed (if so, how long)? @ -No Were there social determinants of health that impacted care today? How? (Homelessness, low income, unemployed, alcoholism, drug addiction, transportation, low edu. Level, literacy, decrease access to med. care, group home, rehab)? @ -No Was there de-escalation of care discussed even if they declined? (Discuss DNR or withdrawal of care, Hospice)? @ -No What co-morbidities impacted this encounter? (DM, HTN, Smoking, COPD, CAD, Cancer, CVA, Hep., AIDS, mental health diagnosis, sleep apnea, morbid obesity)? @ -Fibromyalgia, RLS Was patient admitted / discharged? @ -Discharged. I reviewed the patient's MAPS, and she was given a 30 day prescription for Grove, 10mg, on 01/26, which she has run out of. CT scan of the lumbar spine and pelvis obtained. She has presumed postoperative changes of the soft tissues posterior to the lumbar spine without clear evidence of focal fluid collection. There is also a mild lucency along the course of the bilateral iliac bone screws. This is nonspecific but can be seen with loosening or infection. Patient denies any fevers and she has no external changes across the spine. Given the duration of her symptoms with lack of systemic symptoms, infection is felt to be much less likely. Discussed with the patient that loosening of the hardware is a possibility, and she will need to follow-up with orthopedics to further investigate this possibility. Patient has no ne urological deficits and no loss of bowel/bladder control or saddle anesthesia. Her pain was well-controlled in the emergency department and she was comfortable with discharge home at that time. Undiagnosed new problem with uncertain prognosis? @ -None Drug Therapy requiring intensive monitoring for toxicity (Heparin, Nitro, Insulin, Cardizem)? @ -None Were any procedures done? @ -None Diagnosis/symptom? @ -Low back pain, bilateral lower extremity pain Acute, or Chronic, or Acute on Chronic? @ -Chronic Uncomplicated (without systemic symptoms) or Complicated (systemic symptoms)? @ -Uncomplicated Side effects of treatment? @ -None Exacerbation, Progression, or Severe Exacerbation] @ -Progression Poses a threat to life or bodily function? @ -The pain is having an impact on her ability to function. Return precautions reviewed in depth, the patient is instructed to return to the emergency department with any new, worsening, or concerning symptoms. Patient verbalized understanding. This case was discussed in detail with the attending ED physician, Dr. Mccoy. Presentation, findings, and treatment plan discussed in detail as well. - Radiology Data Radiology results: report reviewed, image reviewed Disposition Clinical Impression: Lower back pain, Bilateral leg pain Disposition: HOME SELF-CARE Instructions (If sedation given, give patient instructions): Acute Low Back Pain (ED) Additional Instructions: Return to the emergency department with any new, worsening, or concerning symptoms. On the CT scan of your lower back and pelvis, there is a mild lucency along the course of both of the iliac bone screws, which can sometimes be seen with loosening of the hardware. Follow up with your primary care provider tomorrow to discuss the results. Is patient prescribed a controlled substance at d/c from ED?: No Referrals: Eladio Gardner MD [Primary Care Provider] - 1-2 days Jaret Palacios DO [Doctor of Osteopathic Medicine] - 1-2 days Mariia Mckeon DO [Doctor of Osteopathic Medicine] - 1-2 days Time of Disposition: 18:17
[2024-02-15] MEDS: ORPHENADRINE 30 MG/ML 2 ML VIAL IM STA (14:40)
[2024-02-15 16:35] VITALS: TEMP 98.1
--- NOTE | 2024-02-15 17:53 | CT ---
EXAMINATION TYPE: CT pelvis wo con CT DLP: Combined DLP of 2681.2 mGycm, Automated exposure control for dose reduction was used. DATE OF EXAM: 02/15/2024 3:17 PM COMPARISON: None. CLINICAL INDICATION:Female, 68 years old with history of Pain and weakness; Bilateral leg pain. No in jury. Back surgery in June of 2023 and another one in August of 2023 due to infection post surgery . TECHNIQUE: Unenhanced CT of the lumbar spine and pelvis was performed with generation of multiplanar reformats. 3-D reconstructed images were generated on the separate workstation. Contrast used: mL of , (none if empty) Oral contrast used: without Oral Contrast (none if empty) FINDINGS: Lumbar spine: There is extensive fusion hardware with bilateral pedicle screws and posterior fixation rods at each level from T10 through S1, and additional screws extending into the bilateral iliac bones close to th e SI joints. Metallic cage interspacer L5-S1 and prosthetic disc interspacers L2-L3, L3-L4, L4-L5. Root rdware appears intact and normally positioned. There is slight lucency along the length of the screws within the iliac bones bilaterally. No abnormal perihardware lucency is otherwise seen. Mild generalized osteopenia. There is moderate multilevel degenerative disk disease throughout the vi sualized spine with trace retrolisthesis of T11 on T12 and L1 on L2 which appears to be degenerative. No acute fracture or destructive bone lesion is seen. There has been laminectomies with removal of t he spinous process L5, at least partial removal at L4. Presence of artifact from the hardware limits evaluation of the canal and foramina. However there dawson ear to be mild osseous neural foraminal stenosis at essentially every level, and mild canal stenoses greatest at L1-L2. MRI could provide additional information if clinically warranted. There is ill-defined soft tissue opacity along the posterior aspect of the lumbar spine close to midl ine, greatest in the lower lumbar region, which likely reflects postoperative changes and nonfocal fl uid. No abnormal gas is seen in this region. Included lung bases are clear. Partially imaged abdominal pelvic structures show no significant abnor mality. Moderate stool in the visualized colon. Moderate calcification of the abdominal aorta and hema ac arteries. No free fluid or free air is seen. Pelvis: Mild degenerative changes of the SI joints. Postoperative changes with hardware fusion in the lower l umbar spine with bilateral iliac screws, as described on the lumbar CT report. Pelvis otherwise appears symmetric and intact. Mild degenerative changes of the bilateral femoral mikki tabular joints. Postoperative changes in the proximal right femur with intramedullary cheyenne and dynamic screw extending into the femoral head. Hardware appears intact and normally aligned. There is no abn ormal perihardware lucency or acute fracture seen. Osseous deformity in the intertrochanteric region compatible with old healed fracture. No osseous destructive process is seen. Included soft tissues demonstrate a grossly unremarkable CT appearance of the uterus and what are pre sumably the ovaries. No free pelvic fluid or lymphadenopathy. Linear opacities in the subcutaneous tissues at the level of the right hip are likely postoperative. There are small areas of increased attenuation with some intermixed small foci of gas seen in the upp er right gluteal region subcutaneously which are probably from medication injections. IMPRESSION: CT lumbar spine and pelvis: 1. Extensive hardware fusion extending from T10 through S1 as well as the bilateral iliac bones. Hard anthony appears intact. 2. Presumed postoperative changes of the soft tissues posterior to the lumbar spine, without clear ev idence of focal fluid collection by this exam. However superimposed infection cannot be excluded by C T. 3. Mild lucency along the course of the bilateral iliac bone screws, nonspecific but can be seen with loosening or infection. 4. Changes of ORIF in the proximal right femur with intact appearing hardware. 5. No evidence of acute fracture or destructive osseous process in the lumbar spine or pelvis.
--- NOTE | 2024-02-15 17:54 | CT ---
EXAMINATION TYPE: CT lumbar spine wo con CT DLP: Combined DLP of 2681.2 mGycm, Automated exposure control for dose reduction was used. DATE OF EXAM: 02/15/2024 3:16 PM COMPARISON: . CLINICAL INDICATION:Female, 68 years old with history of Pain and weakness; PHH, Bilateral leg pain. No injury. Back surgery in June of 2023 and another one in August of 2023 due to infection post french rgery. TECHNIQUE: Unenhanced CT of the lumbar spine and pelvis was performed with generation of multiplanar reformats. 3-D reconstructed images were generated on the separate workstation. Contrast used: mL of , (none if empty) Oral contrast used: without Oral Contrast (none if empty) FINDINGS: Lumbar spine: There is extensive fusion hardware with bilateral pedicle screws and posterior fixation rods at each level from T10 through S1, and additional screws extending into the bilateral iliac bones close to th e SI joints. Metallic cage interspacer L5-S1 and prosthetic disc interspacers L2-L3, L3-L4, L4-L5. Root rdware appears intact and normally positioned. There is slight lucency along the length of the screws within the iliac bones bilaterally. No abnormal perihardware lucency is otherwise seen. Mild generalized osteopenia. There is moderate multilevel degenerative disk disease throughout the vi sualized spine with trace retrolisthesis of T11 on T12 and L1 on L2 which appears to be degenerative. No acute fracture or destructive bone lesion is seen. There has been laminectomies with removal of t he spinous process L5, at least partial removal at L4. Presence of artifact from the hardware limits evaluation of the canal and foramina. However there dawson ear to be mild osseous neural foraminal stenosis at essentially every level, and mild canal stenoses greatest at L1-L2. MRI could provide additional information if clinically warranted. There is ill-defined soft tissue opacity along the posterior aspect of the lumbar spine close to midl ine, greatest in the lower lumbar region, which likely reflects postoperative changes and nonfocal fl uid. No abnormal gas is seen in this region. Included lung bases are clear. Partially imaged abdominal pelvic structures show no significant abnor mality. Moderate stool in the visualized colon. Moderate calcification of the abdominal aorta and hema ac arteries. No free fluid or free air is seen. Pelvis: Mild degenerative changes of the SI joints. Postoperative changes with hardware fusion in the lower l umbar spine with bilateral iliac screws, as described on the lumbar CT report. Pelvis otherwise appears symmetric and intact. Mild degenerative changes of the bilateral femoral mikki tabular joints. Postoperative changes in the proximal right femur with intramedullary [place] and dynamic screw extending into the femoral head. Hardware appears intact and normally aligned. There is no abn ormal perihardware lucency or acute fracture seen. Osseous deformity in the intertrochanteric region compatible with old healed fracture. No osseous destructive process is seen. Included soft tissues demonstrate a grossly unremarkable CT appearance of the uterus and what are pre sumably the ovaries. No free pelvic fluid or lymphadenopathy. Linear opacities in the subcutaneous tissues at the level of the right hip are likely postoperative. There are small areas of increased attenuation with some intermixed small foci of gas seen in the upp er right gluteal region subcutaneously which are probably from medication injections. IMPRESSION: CT lumbar spine and pelvis: 1. Extensive hardware fusion extending from T10 through S1 as well as the bilateral iliac bones. Hard anthony appears intact. 2. Presumed postoperative changes of the soft tissues posterior to the lumbar spine, without clear ev idence of focal fluid collection by this exam. However superimposed infection cannot be excluded by C T. 3. Mild lucency along the course of the bilateral iliac bone screws, nonspecific but can be seen with loosening or infection. 4. Changes of ORIF in the proximal right femur with intact appearing hardware. 5. No evidence of acute fracture or destructive osseous process in the lumbar spine or pelvis.
--- NOTE | 2024-02-15 18:01 | US ---
EXAMINATION TYPE: US venous doppler duplex LE BI DATE OF EXAM: 02/15/2024 4:09 PM COMPARISON: NONE CLINICAL INDICATION: Female, 68 years old with history of Leg pain; bilat leg pain, Hx rt leg DVT, on thinners SIDE PERFORMED: TECHNIQUE: The bilateral lower extremity deep venous system is examined utilizing real time linear a rray sonography with graded compression, doppler sonography and color-flow sonography. VESSELS IMAGED: Common Femoral Vein Deep Femoral Vein Greater Saphenous Vein * Femoral Vein Popliteal Vein Small Saphenous Vein * Proximal Calf Veins (* superficial vessels) FINDINGS: There is normal flow, compressibility, and vascular waveforms bilaterally. No sonographic e vidence to suggest DVT. IMPRESSION: No evidence of DVT in the bilateral lower extremities.
[2024-02-15] MEDS: DEXAMETHASONE SOD PHOSPHATE 10 MG/ML 1 ML VIAL IM STA (18:28)
[2024-02-15] MEDS: oxyCODONE-APAP 10-325MG 1 EACH TAB PO STA (18:28)
[2024-02-15] MEDS: traMADol 50 MG STARTER PACK 3 TAB BTL PO STA (18:30)
[2024-02-15 18:53] VITALS: BP 126/69; PULSE 85; RESP 16
== END 2024-02-15 18:41 | disposition home or self-care (01) ==
LOC: EC 13:52
DX: M79.662 Pain in left lower leg (principal); M79.661 Pain in right lower leg; M54.50 Low back pain, unspecified; F17.200 Nicotine dependence, unspecified, uncomplicated; Z88.0 Allergy status to penicillin; Z88.8 Allergy status to other drugs, medicaments and biological substances; Z91.040 Latex allergy status; Z91.048 Other nonmedicinal substance allergy status
CPT/HCPCS: 93970; 72192; 72131; 99284; 96372 ×4; J1100; J2360; J1170

== ENCOUNTER → 2024-11-23 | Outpatient (CLI) | payer MEDICARE, SELFPAY ==
--- NOTE | 2024-11-23 13:28 | CTL ---
EXAMINATION TYPE: CT Low Dose Lung DATE OF EXAM ORDERED: 11/23/2024 COMPARISON: None CLINICAL INDICATION: Female, 69 years old with history of Z12.2 Screening; F17.210; PHH, Personal hx nicotine dependence, 2 ppd x 45 years, current smoker., Lung cancer screening, History of Smoking/tob acco use. TECHNIQUE: Low dose computed tomography scan was performed through the chest at 1 mm thick sections a nd reconstructed images in multiple planes at 1 mm and [address] DLP: 132.[address] CTDI: 3.9 mGy Automated exposure control for dose reduction was used. CT DIAGNOSTIC QUALITY: Satisfactory Findings: There are a few scattered micronodules. There is no lung consolidation or abnormal interstitial density. There is no pleural effusion or pneumothorax. The great vessels and heart are normal in size. There is no mediastinal, hilar or axillary adenopathy. Limited scanning through the upper abdomen reveals no gross abnormality. There are no focal osseous lesions. IMPRESSION: 1. Lung RADS category 2 benign. Continue routine screening at yearly intervals. 2. No acute cardiopu lmonary disease. [facility], , 11/23/2024 1:25 PM
== END | disposition home or self-care (01) ==
LOC: RADCTMAIN 12:34
PROVIDERS: ATTEND Family Medicine
DX: Z12.2 Encounter for screening for malignant neoplasm of respiratory organs (principal); F17.210 Nicotine dependence, cigarettes, uncomplicated
CPT/HCPCS: 71271